=== PATIENT | female | born 1955 | race Caucasian/White ===

== ENCOUNTER 2020-01-19 11:48 | Day surgery (SDC) | payer BC, SELFPAY ==
--- NOTE | 2020-01-18 13:56 | P.CONAN_ITS ---
Documented by User: Pattie Aguilar 01/18/20 13:58 HPI - Anesthesia Eval Consult details Narrative: 64yo F for colonscopy: screening [facility] Past Medical History Medical History Asthma Hyperlipidemia Hypothyroid Surgical History Surgical History Hx of colonoscopy Social History Social History Smoking Status: Light tobacco smoker Use of substances other than those prescribed or required for medical reasons: No Advance Directives: No Meds Allergies Allergy/AdvReac Type Severity Reaction Status Date / Time No Known Allergies Allergy Verified 01/18/20 13:19 Home Medications Medication Instructions Recorded Confirmed Type Claritin 01/18/20 01/18/20 History Lipitor 01/18/20 History Vitamin D3 01/18/20 History aspirin [Aspir-81] 81 mg PO DAILY 01/18/20 01/18/20 History fluticasone propion-salmeterol 1 puff INHALATION BID 01/18/20 01/18/20 History [Wixela Inhub] levothyroxine 1 tab PO QAM 01/18/20 01/18/20 History Exam Exam Date and Time: January 18, 2020 1356 Pertinent Lab Results Pertinent Lab Results: Laboratory Tests 10/26/19 10/26/19 06:37 06:37 WBC 5.9 Hgb 12.9 Hct 38.4 Plt Count 274 Sodium 138 Potassium 4.4 Chloride 103 BUN 20 H Creatinine 1.00 Assessment and Plan Assessment Anesthesia Assessment: Chart Reviewed Documented by User: Kathy Nguyen 01/19/20 12:17 [facility] Past Medical History Medical History Asthma Hyperlipidemia Hypothyroid Surgical History Surgical History Hx of colonoscopy Social History Social History Smoking Status: Light tobacco smoker Use of substances other than those prescribed or required for medical reasons: No Advance Directives: No Meds Allergies Allergy/AdvReac Type Severity Reaction Status Date / Time No Known Allergies Allergy Verified 01/18/20 13:19 Home Medications Medication Instructions Recorded Confirmed Type Claritin 01/18/20 01/18/20 History Lipitor 01/18/20 History Vitamin D3 01/18/20 History aspirin [Aspir-81] 81 mg PO DAILY 01/18/20 01/18/20 History fluticasone propion-salmeterol 1 puff INHALATION BID 01/18/20 01/18/20 History [Wixela Inhub] levothyroxine 1 tab PO QAM 01/18/20 01/18/20 History Exam Airway Mallampati Class: I TM Dist: >3cm Neck ROM: Full Heart: RRR Lungs: CTA BL Assessment and Plan Final Anesthetic Review NPO: Yes ASA Class: II Final Preanesthetic Review: Meds/Allgs Chart Reviewed and Consent Obtained/Reviewed Patient Risk: Intermediate Procedure Risk: Intermediate Anesthetic Plan Anesthetic Plan: GA Disposition: Standard PACU
[2020-01-19 12:12] VITALS: BMI 16.0
[2020-01-19 12:16] VITALS: BP 108/57; PULSE 70; RESP 18; TEMP 36.1; O2SAT 98
--- NOTE | 2020-01-19 13:36 | PM.OP ---
Brief Operative Note Date of procedure: 01/19/20 Post-op diagnosis: other (colon polyps) Procedure: colonosocpy Surgeon: Saúl Kirby Anesthesia: MAC Estimated blood loss (mL): 0 Pathology: other (polyp 60 cm) Condition: stable Disposition: PACU
[2020-01-19 13:38] VITALS: BP 90/55; PULSE 61; RESP 16; TEMP 36.3; O2SAT 100
[2020-01-19 13:53] VITALS: BP 106/61; PULSE 60; RESP 18; O2SAT 98
--- NOTE | 2020-01-19 14:12 | HO.POSTANES ---
Post Anesthesia Evaluation Post Anesthesia Evaluation Vital Signs: Vital Signs Temp Pulse Resp BP Pulse Ox 01/19/20 13:53 97.4 F 60 18 106/61 98 01/19/20 13:38 97.4 F 61 16 90/55 L 100 01/19/20 12:16 96.9 F 70 18 108/57 L 98 Anesthesia: Monitored Mental Status: Awake Pain Control: Satisfactory Nausea/Vomiting: None Hydration: Adequate Anesthesia-Related Issues: No Anes. Related Issues
--- NOTE | 2020-01-19 14:15 | OP_ITS ---
SURGEON: Saúl Kirby MD INDICATIONS: Colon cancer screening. PREOPERATIVE DIAGNOSIS: POSTOPERATIVE DIAGNOSIS: PROCEDURE PERFORMED: Colonoscopy to the terminal ileum with snare polypectomy. ESTIMATED BLOOD LOSS: COMPLICATIONS: ANESTHESIA: ASSISTANTS: SPECIMENS: MEDICATIONS: Monitored anesthesia care. DESCRIPTION OF PROCEDURE: History and physical performed. The risks and benefits of the procedure were explained to the patient. Informed consent was obtained. The patient was placed in the left lateral decubitus position. A digital rectal exam was performed and was found to be normal. The Olympus pediatric video colonoscope was introduced into the rectum and advanced to the cecum without difficulty. The cecum was identified by transillumination, palpation, and identification of the ileocecal valve. Examination was performed and the scope was removed. She tolerated the procedure well and was taken to recovery area in stable condition. FINDINGS: The terminal ileum was normal. The visualized colonic mucosa was within normal limits without evidence of masses or ulcers. The quality of the prep was good. At 60 cm, was a single less than 5 mm polyp, which was removed with a snare and recovered via suction. No other polyps were identified. Retroflexed examination was otherwise normal. IMPRESSION: Colon polyp. RECOMMENDATION: Follow up biopsy results. MD ORALIA Everett/CAMERON / [id number]
== END 2020-01-19 14:18 | disposition home or self-care (01) ==
PROVIDERS: PCP Internal Medicine; Visit Provider Internal Medicine Gastroenterology
PROC: 0DJD8ZZ Inspection of Lower Intestinal Tract, Via Natural or Artificial Opening Endoscopic (ICD-10-PCS; CPT 45378; principal; 2020-01-19 13:00)
DX: Z12.11 Encounter for screening for malignant neoplasm of colon (principal); D12.3 Benign neoplasm of transverse colon; K64.8 Other hemorrhoids; K59.00 Constipation, unspecified; J45.909 Unspecified asthma, uncomplicated; E78.5 Hyperlipidemia, unspecified; E03.9 Hypothyroidism, unspecified; Z79.51 Long term (current) use of inhaled steroids; Z79.82 Long term (current) use of aspirin; Z79.899 Other long term (current) drug therapy
CPT/HCPCS: 45385; 88305

== ENCOUNTER 2020-05-19 10:26 | Outpatient (REF) | payer BC, SELFPAY ==
[2020-05-19 13:01] LABS: Blood Urea Nitrogen 19 mg/dL (9-16); Estimated Glomerular Filt Rate 58
== END 2020-05-19 10:27 | disposition home or self-care (01) ==
LOC: HO.LNP 10:26
PROVIDERS: PCP Internal Medicine; Visit Provider Internal Medicine
DX: R79.9 Abnormal finding of blood chemistry, unspecified (principal)
CPT/HCPCS: 82565; 84520

== ENCOUNTER 2020-10-31 10:44 | Outpatient (REF) | payer BC, SELFPAY ==
[2020-10-31 10:48] LABS: MANUAL DIFF FLAG NO
[2020-10-31 11:20] LABS: Basophils Absolute Auto 0.1 X10*3/uL (0.0-0.2); Basophils Percent Auto 1.2 % (0-2); Eosinophils Absolute Auto 0.4 X10*3/uL (0.0-0.4); Eosinophils Percent Auto 6.3 % (0-4); Hematocrit 38.7 % (37-47); Hemoglobin 12.7 g/dl (12.0-16.0); Imm Gran Abs Auto 0.02 X10*3/uL (0.00-0.03); Imm Gran Pct Auto 0.3 % (0.0-0.4); Lymphocytes Absolute Auto 1.7 X10*3/uL (1.2-4.9); Lymphocytes Percent Auto 27.4 % (20-40); Mean Corpuscular HGB Conc 32.8 g/dl (31.0-35.0); Mean Corpuscular Hemoglobin 31.4 pg (27.0-33.0); Mean Corpuscular Volume 95.6 fL (80-98); Mean Platelet Volume 10.5 fL (9.4-12.3); Monocytes Absolute Auto 0.5 X10*3/uL (0.1-1.2); Monocytes Percent Auto 7.8 % (2-11); Neutrophils Absolute Auto 3.4 X10*3/uL (2.0-8.3); Platelet Count 295 X10*3/uL (160-400); Red Blood Count 4.05 X10*6/uL (4.20-5.50); Red Cell Distribution Width 12.1 % (11.0-16.0)
[2020-10-31 11:33] LABS: Glucose Urine UA NEG (NEG); Leukocyte Esterase Urine TRACE (NEG); Nitrite Urine NEG (NEG); Specific Gravity - Urine 1.015 (1.005-1.025); Urine Blood NEG (NEG); Urine Ketones NEG (NEG); Urine Protein NEG (NEG-TRACE)
[2020-10-31 11:51] LABS: Appearance Urine CLEAR; Color Urine YELLOW
[2020-10-31 12:09] LABS: TSH reflex Free T4 2.62 uIU/mL (0.32-4.0); Vitamin D 25-OH Total 32.6 ng/mL (>30)
[2020-10-31 12:11] LABS: Alanine Aminotransferase 19 U/L (0-31); Albumin Level 4.3 g/dL (3.5-5.0); Alkaline Phosphatase 75 U/L (39-117); Anion Gap 12 (12-20); Aspartate Amino Transferase 25 U/L (5-31); Bilirubin Total 0.5 mg/dL (0.0-1.0); Blood Urea Nitrogen 12 mg/dL (9-16); Calcium 9.9 mg/dL (8.4-10.2); Carbon Dioxide 27 mmol/L (22-29); Chloride 105 mmol/L (96-108); Cholesterol 250 mg/dL; Estimated Glomerular Filt Rate 55; Glucose Fasting 95 mg/dL (60-99); HDL Cholesterol 60 mg/dL; LDL Cholesterol Calculated 178 mg/dl; Potassium 4.1 mmol/L (3.3-5.1); Sodium 140 mmol/L (135-145); Triglycerides 62 mg/dL
[2020-10-31 12:22] LABS: RBC Urine 0 /HPF (0); Squamous Epithelial Cell Urine TRACE /LPF
[2020-10-31 12:41] LABS: Reflex LDLD? No
== END 2020-10-31 10:45 | disposition home or self-care (01) ==
LOC: HO.LNP 10:44
PROVIDERS: Visit Provider Internal Medicine
DX: Z00.00 Encounter for general adult medical examination without abnormal findings (principal); E03.9 Hypothyroidism, unspecified; E78.00 Pure hypercholesterolemia, unspecified; E55.9 Vitamin D deficiency, unspecified
CPT/HCPCS: 80053; 80061; 81001; 81003; 82306; 84443; 85025

== ENCOUNTER 2021-05-10 07:10 | Outpatient (REF) | payer BC, SELFPAY ==
[2021-05-10 11:41] LABS: Alanine Aminotransferase 19 U/L (0-31); Albumin Level 4.2 g/dL (3.5-5.0); Alkaline Phosphatase 78 U/L (39-117); Aspartate Amino Transferase 24 U/L (5-31); Bilirubin Direct 0.2 mg/dL (0.0-0.5); Bilirubin Total 0.6 mg/dL (0.0-1.0); Cholesterol 208 mg/dL; HDL Cholesterol 64 mg/dL; LDL Cholesterol Calculated 132 mg/dl; Total Protein 6.9 g/dL (6.5-8.0); Triglycerides 60 mg/dL
[2021-05-10 13:45] LABS: Reflex LDLD? No
== END 2021-05-10 07:11 | disposition home or self-care (01) ==
LOC: HO.LNP 07:10
PROVIDERS: Visit Provider Internal Medicine
DX: E78.00 Pure hypercholesterolemia, unspecified (principal)
CPT/HCPCS: 80061; 80076

== ENCOUNTER → 2021-08-01 10:58 | Outpatient (REF) | payer MEDICARE, BC, SELFPAY ==
--- NOTE | 2021-08-01 11:04 | HM_ITS ---
REQUESTING PROVIDER: Dr. Jacobsen REASON FOR TEST: Palpitations. Patient is a 66-year-old female. INTERPRETATION: Patient was monitored from 08/01/2021, to 08/31/2021. I was requested to read this study today with 09/03/2021. The patient's baseline rhythm was normal sinus rhythm with heart rate varying from 83 to 65 beats per minute, sinus rhythm to 117 beats per minute. There were rare isolated PACs and PVCs noted. On 08/17/2021, at 7:23 a.m., patient had atrial fibrillation, which appears to be new onset with heart rate of initially 95 beats per minute. The patient then complained of symptoms of fluttering at 7:24 a.m., which correlated atrial fibrillation with rapid ventricular response with heart rate as high as 213 beats per minute. Patient remains in atrial fibrillation until 9:25 a.m. Total time period about 2 hours with heart rate from 95 to 213 beats per minute. The patient then converted to sinus rhythm spontaneously. CONCLUSION: 1. Event monitor has remarkable baseline normal sinus rhythm. 2. Rare isolated PACs, PVCs. 3. Symptomatic atrial fibrillation on 08/17, lasting for 2 hours with heart rate as high as 213 beats per minute. Onelia in the office was informed about this. MD SUDHAKAR Blake/MODL / [id number]
== END ==
LOC: HO.CARD 10:58
PROVIDERS: Visit Provider Internal Medicine
DX: R00.2 Palpitations (principal)
CPT/HCPCS: 93270

== ENCOUNTER 2021-09-06 10:19 | Outpatient (REF) | payer MEDICARE, BC, SELFPAY ==
[2021-09-06 10:21] LABS: MANUAL DIFF FLAG NO
[2021-09-06 10:28] LABS: Basophils Absolute Auto 0.1 X10*3/uL (0.0-0.2); Eosinophils Absolute Auto 0.3 X10*3/uL (0.0-0.4); Hematocrit 38.2 % (37.0-47.0); Hemoglobin 12.5 g/dl (12.0-16.0); Imm Gran Abs Auto 0.02 X10*3/uL (0.00-0.03); Imm Gran Pct Auto 0.3 % (0.0-0.4); Lymphocytes Absolute Auto 1.9 X10*3/uL (1.2-4.9); Lymphocytes Percent Auto 30.3 % (20-40); Mean Corpuscular HGB Conc 32.7 g/dl (31.0-35.0); Mean Corpuscular Hemoglobin 31.5 pg (27.0-33.0); Mean Corpuscular Volume 96.2 fL (80.0-98.0); Mean Platelet Volume 10.5 fL (9.4-12.3); Monocytes Absolute Auto 0.7 X10*3/uL (0.1-1.2); Monocytes Percent Auto 10.7 % (2-11); Neutrophils Absolute Auto 3.3 x10*3/uL (2.0-8.3); Neutrophils Percent Auto 52.7 % (45-73); Platelet Count 275 X10*3/uL (160-400); Red Blood Count 3.97 X10*6/uL (4.20-5.50); Red Cell Distribution Width 12.6 % (11.0-16.0); White Blood Count 6.2 X10*3/uL (4.8-10.8)
[2021-09-06 10:41] LABS: Alanine Aminotransferase 26 U/L (0-31); Albumin Level 4.2 g/dL (3.5-5.0); Alkaline Phosphatase 69 U/L (39-117); Anion Gap 10 (12-20); Aspartate Amino Transferase 30 U/L (5-31); Bilirubin Direct 0.3 mg/dL (0.0-0.5); Bilirubin Total 0.6 mg/dL (0.0-1.0); Blood Urea Nitrogen 22 mg/dL (9-16); Calcium 9.3 mg/dL (8.4-10.2); Carbon Dioxide 29 mmol/L (22-29); Chloride 103 mmol/L (96-108); Cholesterol 149 mg/dL; Estimated Glomerular Filt Rate > 60; Glucose Random 93 mg/dL (60-115); HDL Cholesterol 58 mg/dL; LDL Cholesterol Calculated 81 mg/dl; Potassium 4.3 mmol/L (3.3-5.1); Sodium 138 mmol/L (135-145); Total Protein 6.8 g/dL (6.5-8.0); Triglycerides 53 mg/dL
[2021-09-06 11:44] LABS: Reflex LDLD? No
== END 2021-09-06 10:20 | disposition home or self-care (01) ==
LOC: HO.LNP 10:19
PROVIDERS: PCP Internal Medicine; Visit Provider Internal Medicine
DX: E78.00 Pure hypercholesterolemia, unspecified (principal)
CPT/HCPCS: 80048; 80061; 80076; 85025

== ENCOUNTER 2021-11-02 13:24 | Outpatient (REF) | payer MEDICARE, BC, SELFPAY ==
[2021-11-02 13:30] LABS: MANUAL DIFF FLAG NO
[2021-11-02 13:35] LABS: Basophils Absolute Auto 0.1 X10*3/uL (0.0-0.2); Basophils Percent Auto 1.4 % (0-2); Eosinophils Absolute Auto 0.4 X10*3/uL (0.0-0.4); Eosinophils Percent Auto 6.1 % (0-4); Hematocrit 41.3 % (37.0-47.0); Hemoglobin 13.6 g/dl (12.0-16.0); Imm Gran Abs Auto 0.02 X10*3/uL (0.00-0.03); Imm Gran Pct Auto 0.3 % (0.0-0.4); Lymphocytes Absolute Auto 2.6 X10*3/uL (1.2-4.9); Lymphocytes Percent Auto 35.5 % (20-40); Mean Corpuscular HGB Conc 32.9 g/dl (31.0-35.0); Mean Corpuscular Hemoglobin 31.4 pg (27.0-33.0); Mean Corpuscular Volume 95.4 fL (80.0-98.0); Mean Platelet Volume 10.5 fL (9.4-12.3); Monocytes Absolute Auto 0.6 X10*3/uL (0.1-1.2); Monocytes Percent Auto 8.6 % (2-11); Neutrophils Absolute Auto 3.5 x10*3/uL (2.0-8.3); Neutrophils Percent Auto 48.1 % (45-73); Platelet Count 281 X10*3/uL (160-400); Red Blood Count 4.33 X10*6/uL (4.20-5.50); Red Cell Distribution Width 12.5 % (11.0-16.0); White Blood Count 7.2 X10*3/uL (4.8-10.8)
[2021-11-02 13:36] LABS: Appearance Urine CLEAR; Color Urine YELLOW; Glucose Urine UA NEG (NEG); Leukocyte Esterase Urine TRACE (NEG); Nitrite Urine NEG (NEG); PH 6.5 (5.0-8.0); Urine Blood NEG (NEG); Urine Ketones NEG (NEG); Urine Protein NEG (NEG-TRACE)
[2021-11-02 13:43] LABS: RBC Urine 0 /HPF (0); Squamous Epithelial Cell Urine TRACE /LPF
[2021-11-02 13:49] LABS: Alanine Aminotransferase 23 U/L (0-31); Albumin Level 4.4 g/dL (3.5-5.0); Alkaline Phosphatase 74 U/L (39-117); Anion Gap 14 (12-20); Aspartate Amino Transferase 29 U/L (5-31); Bilirubin Total 0.6 mg/dL (0.0-1.0); Blood Urea Nitrogen 19 mg/dL (9-16); Calcium 9.3 mg/dL (8.4-10.2); Carbon Dioxide 28 mmol/L (22-29); Chloride 103 mmol/L (96-108); Cholesterol 189 mg/dL; Estimated Glomerular Filt Rate 49; Glucose Random 84 mg/dL (60-115); HDL Cholesterol 63 mg/dL; LDL Cholesterol Calculated 111 mg/dl; Potassium 4.9 mmol/L (3.3-5.1); Sodium 140 mmol/L (135-145); Triglycerides 78 mg/dL
[2021-11-02 14:09] LABS: TSH reflex Free T4 1.34 uIU/mL (0.32-4.0); Vitamin D 25-OH Total 60.3 ng/mL (>30)
== END 2021-11-02 13:25 | disposition home or self-care (01) ==
LOC: HO.LNP 13:24
PROVIDERS: Visit Provider Internal Medicine
DX: E03.9 Hypothyroidism, unspecified (principal); E55.9 Vitamin D deficiency, unspecified; E78.00 Pure hypercholesterolemia, unspecified
CPT/HCPCS: 80053; 80061; 81001; 82306; 84443; 85025

== ENCOUNTER → 2022-02-13 11:14 | Outpatient (BNVA) | payer MEDICARE, BC, SELFPAY | PROVIDERS: PCP Internal Medicine; Referring Provider Internal Medicine; Visit Provider Internal Medicine Cardiovascular Disease | DX: I48.0 Paroxysmal atrial fibrillation (principal); I34.0 Nonrheumatic mitral (valve) insufficiency; Z79.01 Long term (current) use of anticoagulants | CPT/HCPCS: 93005; 99202 ==

== ENCOUNTER 2022-03-01 09:10 | Outpatient (REF) | payer MEDICARE, BC, SELFPAY ==
--- NOTE | ~2022-03-01 | XR_ITS ---
EXAMINATION: XR CHEST CLINICAL INFORMATION: Bronchitis COMPARISON: Chest radiographs 04/01/2006 TECHNIQUE: 2 views of the chest were obtained. FINDINGS: There is chronic hyperinflation. No lobar or segmental airspace consolidation or definite groundglass opacity. There are some accentuated interstitial markings right midlung zone. No pleural reaction or effusion. Heart size normal. Vascularity normal. No acute bony abnormality. XR/XR chest 2V IMPRESSION: 1. Chronic hyperinflation. No airspace consolidation, groundglass opacity, or effusion. 2. Subtle nonspecific accentuated interstitial markings right mid zone is new from remote exam 2006.
[2022-03-01 10:17] LABS: Basophils Percent Auto 0.2 % (0-2); Hematocrit 37.5 % (37.0-47.0); Hemoglobin 12.7 g/dl (12.0-16.0); Imm Gran Pct Auto 1.1 % (0.0-0.4); Lymphocytes Absolute Auto 1.1 X10*3/uL (1.2-4.9); Lymphocytes Percent Auto 6.1 % (20-40); MANUAL DIFF FLAG SCAN; Mean Corpuscular HGB Conc 33.9 g/dl (31.0-35.0); Mean Corpuscular Hemoglobin 31.4 pg (27.0-33.0); Mean Corpuscular Volume 92.8 fL (80.0-98.0); Mean Platelet Volume 9.4 fL (9.4-12.3); Monocytes Absolute Auto 0.3 X10*3/uL (0.1-1.2); Monocytes Percent Auto 1.5 % (2-11); Neutrophils Absolute Auto 16.1 x10*3/uL (2.0-8.3); Neutrophils Percent Auto 91.1 % (45-73); Platelet Count 496 X10*3/uL (160-400); Red Blood Count 4.04 X10*6/uL (4.20-5.50); Red Cell Distribution Width 12.9 % (11.0-16.0); SCAN SMEAR FLAG 1; White Blood Count 17.7 X10*3/uL (4.8-10.8)
[2022-03-01 11:11] LABS: Alanine Aminotransferase 43 U/L (0-31); Albumin Level 4.1 g/dL (3.5-5.0); Alkaline Phosphatase 150 U/L (39-117); Anion Gap 16 (12-20); Aspartate Amino Transferase 38 U/L (5-31); Bilirubin Total 0.4 mg/dL (0.0-1.0); Blood Urea Nitrogen 20 mg/dL (9-16); Calcium 9.4 mg/dL (8.4-10.2); Carbon Dioxide 27 mmol/L (22-29); Chloride 99 mmol/L (96-108); Estimated Glomerular Filt Rate > 60; Glucose Random 184 mg/dL (60-115); Potassium 3.9 mmol/L (3.3-5.1); Sodium 138 mmol/L (135-145); Total Protein 7.3 g/dL (6.5-8.0)
[2022-03-01 11:12] LABS: SLIDE REVIEW VERIFIED
[2022-03-01 14:37] LABS: Influenza A PCR NEGATIVE (Negative); Influenza B PCR NEGATIVE (Negative); Resp Syncy Virus RNA Qual PCR NEGATIVE (Negative); SARS COV2 PCR INHOUSE NEGATIVE (Negative)
== END 2022-03-01 09:11 | disposition home or self-care (01) ==
LOC: HO.LAB 09:10
PROVIDERS: PCP Internal Medicine; Visit Provider Internal Medicine
DX: J40 Bronchitis, not specified as acute or chronic (principal); J45.41 Moderate persistent asthma with (acute) exacerbation; Z20.822 Contact with and (suspected) exposure to COVID-19
CPT/HCPCS: 0241U; 36415; 71046; 80053; 85025

== ENCOUNTER 2022-05-17 16:00 | Outpatient (REF) | payer MEDICARE, BC, SELFPAY ==
[2022-05-17 16:07] LABS: MANUAL DIFF FLAG NO
[2022-05-17 16:18] LABS: Basophils Absolute Auto 0.1 X10*3/uL (0.0-0.2); Basophils Percent Auto 0.9 % (0-2); Eosinophils Absolute Auto 0.2 X10*3/uL (0.0-0.4); Eosinophils Percent Auto 2.8 % (0-4); Hematocrit 38.8 % (37.0-47.0); Imm Gran Abs Auto 0.02 X10*3/uL (0.00-0.03); Imm Gran Pct Auto 0.3 % (0.0-0.4); Lymphocytes Absolute Auto 2.3 X10*3/uL (1.2-4.9); Lymphocytes Percent Auto 28.9 % (20-40); Mean Corpuscular HGB Conc 33.5 g/dl (31.0-35.0); Mean Corpuscular Hemoglobin 31.8 pg (27.0-33.0); Mean Corpuscular Volume 94.9 fL (80.0-98.0); Mean Platelet Volume 9.9 fL (9.4-12.3); Monocytes Absolute Auto 0.6 X10*3/uL (0.1-1.2); Monocytes Percent Auto 7.2 % (2-11); Neutrophils Absolute Auto 4.8 x10*3/uL (2.0-8.3); Neutrophils Percent Auto 59.9 % (45-73); Platelet Count 283 X10*3/uL (160-400); Red Blood Count 4.09 X10*6/uL (4.20-5.50); Red Cell Distribution Width 12.8 % (11.0-16.0)
[2022-05-17 16:53] LABS: Alanine Aminotransferase 27 U/L (0-31); Albumin Level 4.2 g/dL (3.5-5.0); Alkaline Phosphatase 84 U/L (39-117); Anion Gap 12 (12-20); Aspartate Amino Transferase 29 U/L (5-31); Bilirubin Total 0.6 mg/dL (0.0-1.0); Blood Urea Nitrogen 17 mg/dL (9-16); Calcium 9.2 mg/dL (8.4-10.2); Carbon Dioxide 29 mmol/L (22-29); Chloride 102 mmol/L (96-108); Estimated Glomerular Filt Rate > 60; Glucose Fasting 102 mg/dL (60-99); Sodium 139 mmol/L (135-145); Total Protein 6.6 g/dL (6.5-8.0)
[2022-05-17 17:05] LABS: Erythrocyte Sedimentation Rate 13 MM/HR (0-20)
[2022-05-17 17:07] LABS: TSH reflex Free T4 0.63 uIU/mL (0.32-4.0)
== END 2022-05-17 16:01 | disposition home or self-care (01) ==
LOC: HO.LNP 16:00
PROVIDERS: Visit Provider Internal Medicine
DX: R53.83 Other fatigue (principal); E03.9 Hypothyroidism, unspecified
CPT/HCPCS: 80053; 84443; 85025; 85652

== ENCOUNTER → 2022-08-15 14:03 | Outpatient (BNVA) | payer MEDICARE, BC, SELFPAY | PROVIDERS: PCP Internal Medicine; Referring Provider Internal Medicine; Visit Provider Internal Medicine Cardiovascular Disease | DX: I48.0 Paroxysmal atrial fibrillation (principal); I34.0 Nonrheumatic mitral (valve) insufficiency | CPT/HCPCS: 93005; 99212 ==

== ENCOUNTER 2022-10-07 13:33 | Outpatient (REF) | payer MEDICARE, BC, SELFPAY ==
[2022-10-09 16:38] LABS: Alpha 1 Anti-trypsin 136 mg/dL (83-199)
== END 2022-10-07 13:34 | disposition home or self-care (01) ==
LOC: HO.LNP 13:33
PROVIDERS: Visit Provider Internal Medicine
DX: J40 Bronchitis, not specified as acute or chronic (principal)
CPT/HCPCS: 82103

== ENCOUNTER 2022-11-05 11:23 | Outpatient (REF) | payer MEDICARE, BC, SELFPAY ==
[2022-11-05 11:28] LABS: MANUAL DIFF FLAG NO
[2022-11-05 12:20] LABS: Basophils Absolute Auto 0.1 X10*3/uL (0.0-0.2); Basophils Percent Auto 1.2 % (0-2); Eosinophils Absolute Auto 0.4 X10*3/uL (0.0-0.4); Eosinophils Percent Auto 5.1 % (0-4); Hematocrit 38.9 % (37.0-47.0); Hemoglobin 12.8 g/dl (12.0-16.0); Imm Gran Abs Auto 0.02 X10*3/uL (0.00-0.03); Imm Gran Pct Auto 0.3 % (0.0-0.4); Lymphocytes Absolute Auto 2.2 X10*3/uL (1.2-4.9); Lymphocytes Percent Auto 31.5 % (20-40); Mean Corpuscular HGB Conc 32.9 g/dl (31.0-35.0); Mean Corpuscular Hemoglobin 31.5 pg (27.0-33.0); Mean Corpuscular Volume 95.8 fL (80.0-98.0); Mean Platelet Volume 10.3 fL (9.4-12.3); Monocytes Absolute Auto 0.7 X10*3/uL (0.1-1.2); Monocytes Percent Auto 9.6 % (2-11); Neutrophils Absolute Auto 3.6 x10*3/uL (2.0-8.3); Neutrophils Percent Auto 52.3 % (45-73); Platelet Count 284 X10*3/uL (160-400); Red Blood Count 4.06 X10*6/uL (4.20-5.50); Red Cell Distribution Width 12.6 % (11.0-16.0); White Blood Count 6.9 X10*3/uL (4.8-10.8)
[2022-11-05 12:22] LABS: Appearance Urine Clear; Color Urine Yellow; Glucose Urine UA Negative (Negative); Leukocyte Esterase Urine Trace (Negative); Nitrite Urine Negative (Negative); PH 5.5 (5.0-9.0); Specific Gravity - Urine 1.015 (1.005-1.025); UMIC TRIGGER UACC YES; Urine Blood Negative (Negative); Urine Ketones Negative (Negative); Urine Protein Negative (Neg-Trace)
[2022-11-05 12:25] LABS: Bacteria Urine None Seen (None Seen); Hyaline Casts Urine 0-2 /LPF (0-2); RBC Urine 0-2 /HPF (0-2); Squamous Epithelial Cell Urine 0-2 /HPF (0-2); WBC Urine 0-5 /HPF (0-5)
[2022-11-05 12:34] LABS: Alanine Aminotransferase 27 U/L (0-31); Albumin Level 4.2 g/dL (3.5-5.0); Alkaline Phosphatase 75 U/L (39-117); Anion Gap 11 (12-20); Aspartate Amino Transferase 33 U/L (5-31); Bilirubin Total 0.5 mg/dL (0.0-1.0); Blood Urea Nitrogen 15 mg/dL (9-16); Calcium 9.3 mg/dL (8.4-10.2); Carbon Dioxide 29 mmol/L (22-29); Chloride 105 mmol/L (96-108); Cholesterol 168 mg/dL; Estimated Glomerular Filt Rate 54; Glucose Fasting 92 mg/dL (60-99); HDL Cholesterol 59 mg/dL; LDL Cholesterol Calculated 99 mg/dl; Potassium 4.3 mmol/L (3.3-5.1); Sodium 141 mmol/L (135-145); Triglycerides 52 mg/dL
[2022-11-05 12:45] LABS: TSH reflex Free T4 2.21 uIU/mL (0.32-4.0); Vitamin D 25-OH Total 51.9 ng/mL (>30)
== END 2022-11-05 11:24 | disposition home or self-care (01) ==
LOC: HO.LNP 11:23
PROVIDERS: Visit Provider Internal Medicine
DX: E03.9 Hypothyroidism, unspecified (principal); E55.9 Vitamin D deficiency, unspecified; E78.00 Pure hypercholesterolemia, unspecified
CPT/HCPCS: 80053; 80061; 81001; 82306; 84443; 85025

== ENCOUNTER 2023-05-09 07:59 | Outpatient (REF) | payer MEDICARE, BC, SELFPAY ==
[2023-05-09 09:17] LABS: Alanine Aminotransferase 15 U/L (0-31); Albumin Level 4.3 g/dL (3.5-5.0); Alkaline Phosphatase 81 U/L (39-117); Aspartate Amino Transferase 21 U/L (5-31); Bilirubin Direct 0.2 mg/dL (0.0-0.5); Bilirubin Total 0.6 mg/dL (0.0-1.0); Cholesterol 196 mg/dL (<200); HDL Cholesterol 63 mg/dL (>40); LDL Cholesterol Calculated 118 mg/dL (<100); Total Protein 7.2 g/dL (6.5-8.0); Triglycerides 77 mg/dL (<150)
[2023-05-09 09:26] LABS: Reflex LDLD? No
== END 2023-05-09 08:00 | disposition home or self-care (01) ==
LOC: HO.LAB 07:59
PROVIDERS: PCP Internal Medicine; Visit Provider Internal Medicine
DX: E78.5 Hyperlipidemia, unspecified (principal)
CPT/HCPCS: 36415; 80061; 80076

== ENCOUNTER → 2023-05-28 15:33 | Outpatient (BNVA) | payer MEDICARE, BC, SELFPAY | PROVIDERS: PCP Internal Medicine; Visit Provider Internal Medicine Cardiovascular Disease ==

== ENCOUNTER → 2023-07-28 07:54 | Outpatient (REF) | payer MEDICARE, BC, SELFPAY ==
--- NOTE | 2023-07-28 07:56 | CA_ITS ---
Transthoracic Echocardiogram Patient (Last, First, Middle): Radha Bay A Gender: Female Date of : 1955 Age: 68 Procedure Date: 07/28/2023 Procedure Type: Transthoracic Echocardiogram Location: OP Height: 162.56 cm Weight: 39.46 kg BSA: 1.37 m2 Heart Rate: bpm BP: 104 / 60 mmHg Remedial Reading Teacher: MARKOS Referring MD: Tacho Valdes MD Symptoms: I34.0 - Nonrheumatic mitral (valve) insufficiency Study Quality: Adequate ECG Rhythm: Sinus Conclusions: - The left ventricular systolic function is normal. The calculated ejection fraction is 66% by biplane method. - There is mild posterior mitral leaflet prolapse. There is mild mitral valve regurgitation. - Mild tricuspid leaflet prolapse- septal leaflet. - There is mild to moderate tricuspid valve regurgitation. - Mild pulmonary hypertension is present. Findings Procedure Information The study quality is limited by patients body habitus. Left Ventricle Normal left ventricular cavity size. There is normal left ventricular wall thickness. The left ventricular systolic function is normal. The calculated ejection fraction is 66% by biplane method. There is no evidence of regional wall motion abnormalities. Evidence suggests grade I (mild) diastolic dysfunction. Right Ventricle Normal right ventricular cavity size and systolic function. Atria Both atria are normal in size. Aortic Valve There is a normal trileaflet aortic valve. There is no aortic valve stenosis. There is no aortic valve regurgitation. Mitral Valve There is mild posterior mitral leaflet prolapse. There is mild mitral valve regurgitation. There is no mitral valve stenosis. Pulmonic Valve The pulmonic valve is likely normal. Tricuspid Valve There is mild to moderate tricuspid valve regurgitation. Mild pulmonary hypertension is present. Mild tricuspid leaflet prolapse- septal leaflet. Great Vessels The asc aorta is normal in size. Venous The inferior vena cava is mildly dilated and collapses greater than 50% with inspiration. Pericardium/Pleural There is no evidence of pericardial effusion. Prior Study Comparison No prior study available for comparison. Measurements 2D Linear Measurements IVSd: 0.73 0.6-0.9/0.6-1.0 cm LVIDd: 3.48 3.9-5.3/4.2-5.9 cm LVIDd Index: 2.54 2.4-3.2/2.2-3.1 cm/m2 LVIDs: 2.41 2.0-3.6 cm LVPWd: 1.02 0.7-1.1 cm LA Diam: 2.70 2.7-3.8/3.0-4.0 cm LAIDs Index: 1.97 1.5-2.3 cm/m2 LV Mass: 104.52 67-162/88-224 g LV Mass Index: 76.29 43-95/49-115 g/m2 LVOT Diam: 2.00 3.0+(-)1.3 cm 2D Systolic Function EF 4C: 68.50 >55% EF 2C: 64.00 >55% EF BiP: 66.40 >55% Mitral Valve MV Pk E: 0.87 MV PK A: 0.92 MV Decel Time: 237.00 E/A: 0.90 E'Lateral: 8.70 E'Medial: 6.31 E/E' Med: 13.70 E/E' Lat: 9.90 PHT: 69.00 MVA PHT: 3.19 Decel Runnels: 3.65 MR Vol - PW Dopp: 11.13 MR VTI: 1.59 MR ERO: 7.00 MR Alias Roman: 0.39 MR RAD: 0.40 Aortic Valve AoV Pk Roman: 1.19 AoV Mn Roman: 0.82 AoV VTI: 0.28 AoV Pk Grad: 6.00 Aov Mn Grad: 3.00 BERNADETTE Cont.VTI: 2.12 LVOT LVOT Pk Roman: 0.74 LVOT Mn Roman: 0.51 LVOT VTI: 0.19 LVOT Pk Grad: 2.00 LVOT Mn Grad: 1.00 LVOT Diam: 2.00 LVOT Area: 3.14 Diastolic Function MV Pk E: 0.87 MV Pk A: 0.92 E/A: 0.90 E'Medial: 6.31 E/E' Med: 13.70 E' Laterial: 8.70 E/E' Lat: 9.90 Right Ventricle TAPSE (mm): 22.30 TVS' Roman: 12.00 Tricuspid Valve TR Pk Roman: 2.93 TR Pk Grad: 34.00 RA Press: 8.00 RVSP: 42.00 Great Vessels Aorta Sinus of Valsalva: 3.20 2.0-3.[address] Ridge: 2.37 1.7-3.4 cm Ao Asc: 2.80 2.1-3.4 cm Updated in Other Vendor System with Status of Final Samir Alvarenga MD electronically signed on 07/28/2023 9:40:04 AM with status of Final
== END ==
LOC: HO.CARD 07:54
PROVIDERS: PCP Internal Medicine; Visit Provider Internal Medicine Cardiovascular Disease
DX: I34.0 Nonrheumatic mitral (valve) insufficiency (principal)
CPT/HCPCS: 93306

== ENCOUNTER → 2023-07-28 07:56 | Outpatient (BNV) | payer MEDICARE, BC, SELFPAY | PROVIDERS: PCP Internal Medicine; Visit Provider Internal Medicine | DX: I34.0 Nonrheumatic mitral (valve) insufficiency (principal); I34.1 Nonrheumatic mitral (valve) prolapse; I36.1 Nonrheumatic tricuspid (valve) insufficiency | CPT/HCPCS: 93306 ==

== ENCOUNTER 2023-08-14 11:07 | Outpatient (AMB) | payer MEDICARE, BC, SELFPAY ==
[2023-08-14 11:13] VITALS: BP 110/70; PULSE 59; BMI 15.1
--- NOTE | 2023-08-14 11:13 | MHC.OFFVIS ---
Vital Signs 08/14/23 11:13 Height 5 ft 4 in Weight 88 lb 2.958 oz BMI 15.1 BP 110/70 Blood Pressure Location Lt brachial Position Sitting Pulse 59 Intake Visit Reasons: 1 yr f/up w/ ekg Intake Note: 1 year follow-up with ekg feeling good Linderman Operator Required: No Allergies No Known Allergies Allergy (Verified 02/13/22 11:21) Medication List - Last Reconciled 08/14/23 by Tacho Valdes MD albuterol sulfate 90 mcg/actuation 0 mcg inhalation apixaban (Eliquis) 5 mg PO BID cholecalciferol (vitamin D3) 50 mcg PO DAILY flecainide 50 mg PO BID fluticasone propion-salmeterol 250-50 mcg/dose (Wixela Inhub) 1 puff inhalation BID levothyroxine 50 mcg PO QAM metoprolol succinate ER 25 mg PO DAILY rosuvastatin 10 mg PO DAILY HPI Comments Details: Radha comes for follow-up. She has been doing well overall from cardiac perspective. Maintains active lifestyle. Has had no recurrent episodes of atrial fibrillation. Denies any skipped heartbeats. No prolonged palpitation irregular heartbeat. Tolerating her medications including flecainide as well as metoprolol therapy. Also tolerating her oral anticoagulation with no bleeding issues or neurologic events. Denies any shortness of breath, orthopnea, PND. Echocardiogram shows mild prolapse of the posterior mitral leaflet with mild mitral regurgitation and [id number] tricuspid regurgitation. LV systolic function is within normal limits. [facility] Medical History Mitral regurgitation Paroxysmal atrial fibrillation Asthma Hyperlipidemia Hypothyroid Surgical History Hx of colonoscopy Family History Mother HTN (hypertension) Cervical cancer Hyperthyroidism Father Heart attack Brother History of quadruple bypass Sister Hyperthyroidism Acute rheumatoid arthritis Sister Hypothyroid Hypercholesteremia Social History Alcohol intake: never Patient Tobacco Use Status: Never used Tobacco Review of Systems Const Denies chills, Denies fatigue, Denies fever(s), Denies frequent falls, Denies weakness, Denies weight gain and Denies weight loss ENT Denies dizziness Card Denies chest pain, Denies leg edema, Denies lightheadedness, Denies palpitations, Denies dyspnea, Denies dyspnea on exertion, Denies orthopnea and Denies other (loss of consciousness) Resp Denies cough, Denies dyspnea and Denies dyspnea on exertion GI Denies hematochezia and Denies change in stool character Musc Denies abnormal gait, Denies muscle weakness, Denies numbness, Denies radiating pain into limb and Denies tingling Neuro Denies Abnormal speech present, Denies abnormal gait, Denies dizziness, Denies frequent falls, Denies numbness, Denies tingling and Denies weakness Endo Denies fatigue and Denies palpitations Physical Exam Vital Signs: Last Vital Signs Pulse 59 08/14/23 11:13 BP 110/70 08/14/23 11:13 BMI result Body Mass Index 15.1 Const General: cooperative, comfortable, no acute distress, alert, awake, Physically active and well groomed Nutritional Appearance: thin Orientation/consciousness: patient oriented x3 Limitations: no limitations HEENT Head: Yes normocephalic and Yes atraumatic Neck Neck: Yes trachea midline, Yes supple and Yes no JVD Resp Effort & Inspection: normal respiratory effort Auscultation: clear to auscultation bilaterally Cardio Jugular venous distension: no JVD Palpation: normal PMI Rate: regular rate Rhythm: regular rhythm Heart sounds: S1 normal heart sound present, S2 normal heart sound present, no click, no gallops, no murmurs and no rubs GI Auscultation: normal bowel sounds Skin General skin exam: no rashes or lesions noted Neuro General: patient oriented x3 and no focal motor deficits Speech: No Abnormal speech present Extrem General: Yes no clubbing, cyanosis or edema Psych Appearance: grossly normal Office Procedures EKG Details: EKG shows sinus bradycardia 59 beats per minute otherwise normal EKG [id number], Complete Assessment & Plan Assessment & Plan (1) Paroxysmal atrial fibrillation: Code(s): I48.0 - Paroxysmal atrial fibrillation Category: Medical Plan: Highly symptomatic paroxysmal atrial fibrillation currently suppressed on low-dose flecainide therapy along with metoprolol therapy which is required. Continue the same. Management of atrial fibrillation was discussed. She is derived significant benefit from rhythm control approach will continue pursue rhythm control approach. Continue full oral anticoagulation, currently on Eliquis 5 mg b.i.d.. Semi annual renal function test should be pursued. Avoidance of stimulants was discussed. Advised to call me with any new symptoms. Follow-up EKG in 6 months. (2) Mitral regurgitation: Code(s): I34.0 - Nonrheumatic mitral (valve) insufficiency Category: Medical Plan: Mitral valve prolapse with mild mitral regurgitation [id number] tricuspid regurgitation. She has no symptoms related to it. Will continue monitor clinically and by echocardiogram annually. Currently on full oral anticoagulation with Eliquis. Continue metoprolol therapy. Symptoms associated with significant mitral regurgitation was discussed. Will follow up in the clinic in 6 months for EKG in 1 year with me. Thank you for allowing me to partake in the care Coding Level of Care Code Est Pt Level 4 (95216) Diagnoses Paroxysmal atrial fibrillation I48.0 Mitral regurgitation I34.0 CPT Codes EKG - CPT: 91322-Eqojyuagtetuppnlw, Complete ([id number])
== END 2023-08-14 11:58 | disposition home or self-care (01) ==
PROVIDERS: PCP Internal Medicine; Visit Provider Internal Medicine Cardiovascular Disease
DX: I48.0 Paroxysmal atrial fibrillation (principal); I34.0 Nonrheumatic mitral (valve) insufficiency
CPT/HCPCS: 93010; 99214

== ENCOUNTER → 2023-08-14 11:07 | Outpatient (BNVA) | payer MEDICARE, BC, SELFPAY | PROVIDERS: Visit Provider Internal Medicine Cardiovascular Disease | DX: I48.0 Paroxysmal atrial fibrillation (principal); I34.0 Nonrheumatic mitral (valve) insufficiency | CPT/HCPCS: 93005; 99212 ==

== ENCOUNTER 2023-11-06 11:11 | Outpatient (REF) | payer MEDICARE, BC, SELFPAY ==
[2023-11-06 11:14] LABS: MANUAL DIFF FLAG NO
[2023-11-06 11:27] LABS: Basophils Absolute Auto 0.1 X10*3/uL (0.0-0.2); Basophils Percent Auto 1.2 % (0-2); Eosinophils Absolute Auto 0.5 X10*3/uL (0.0-0.4); Eosinophils Percent Auto 6.1 % (0-4); Hematocrit 41.1 % (37.0-47.0); Hemoglobin 13.9 g/dl (12.0-16.0); Imm Gran Abs Auto 0.02 X10*3/uL (0.00-0.03); Imm Gran Pct Auto 0.3 % (0.0-0.4); Lymphocytes Absolute Auto 3.3 X10*3/uL (1.2-4.9); Lymphocytes Percent Auto 42.7 % (20-40); Mean Corpuscular HGB Conc 33.8 g/dl (31.0-35.0); Mean Corpuscular Volume 94.5 fL (80.0-98.0); Mean Platelet Volume 10.5 fL (9.4-12.3); Monocytes Absolute Auto 0.6 X10*3/uL (0.1-1.2); Monocytes Percent Auto 7.9 % (2-11); Neutrophils Absolute Auto 3.2 x10*3/uL (2.0-8.3); Neutrophils Percent Auto 41.8 % (45-73); Platelet Count 313 X10*3/uL (160-400); Red Blood Count 4.35 X10*6/uL (4.20-5.50); Red Cell Distribution Width 12.5 % (11.0-16.0); White Blood Count 7.7 X10*3/uL (4.8-10.8)
[2023-11-06 11:40] LABS: Appearance Urine Clear; Color Urine Yellow; Glucose Urine UA Negative (Negative); Leukocyte Esterase Urine Trace (Negative); Nitrite Urine Negative (Negative); UMIC TRIGGER UACC YES; Urine Blood Negative (Negative); Urine Ketones Negative (Negative); Urine Protein Negative (Neg-Trace)
[2023-11-06 11:48] LABS: Bacteria Urine None Seen (None Seen); Hyaline Casts Urine 0-2 /LPF (0-2); RBC Urine 0-2 /HPF (0-2); Squamous Epithelial Cell Urine 0-2 /HPF (0-2); WBC Urine 0-5 /HPF (0-5)
[2023-11-06 11:53] LABS: Alanine Aminotransferase 20 U/L (0-31); Albumin Level 4.1 g/dL (3.5-5.0); Alkaline Phosphatase 84 U/L (39-117); Anion Gap 11 (12-20); Aspartate Amino Transferase 29 U/L (5-31); Bilirubin Total 0.6 mg/dL (0.0-1.0); Blood Urea Nitrogen 14 mg/dL (9-16); Calcium 9.2 mg/dL (8.4-10.2); Carbon Dioxide 28 mmol/L (22-29); Chloride 105 mmol/L (96-108); Cholesterol 190 mg/dL (<200); Estimated Glomerular Filt Rate 56; Glucose Fasting 92 mg/dL (60-99); HDL Cholesterol 59 mg/dL (>40); LDL Cholesterol Calculated 113 mg/dL (<100); Sodium 140 mmol/L (135-145); Total Protein 7.2 g/dL (6.5-8.0); Triglycerides 94 mg/dL (<150)
[2023-11-06 12:10] LABS: TSH reflex Free T4 4.34 uIU/mL (0.32-4.0); Vitamin D 25-OH Total 60.2 ng/mL (>30)
[2023-11-06 12:51] LABS: Free T4 (Free Thyroxine) 1.19 ng/dL (0.71-1.85)
== END 2023-11-06 11:12 | disposition home or self-care (01) ==
LOC: HO.LNP 11:11
PROVIDERS: Visit Provider Internal Medicine
DX: E03.9 Hypothyroidism, unspecified (principal); E55.9 Vitamin D deficiency, unspecified; E78.00 Pure hypercholesterolemia, unspecified
CPT/HCPCS: 80053; 80061; 81001; 82306; 84439; 84443; 85025

== ENCOUNTER 2024-01-13 12:19 | Outpatient (REF) | payer MEDICARE, BC, SELFPAY ==
[2024-01-13 12:21] LABS: MANUAL DIFF FLAG NO
[2024-01-13 12:39] LABS: Basophils Absolute Auto 0.1 X10*3/uL (0.0-0.2); Basophils Percent Auto 1.3 % (0-2); Eosinophils Absolute Auto 0.4 X10*3/uL (0.0-0.4); Eosinophils Percent Auto 5.5 % (0-4); Hematocrit 38.3 % (37.0-47.0); Hemoglobin 13.1 g/dl (12.0-16.0); Imm Gran Abs Auto 0.01 X10*3/uL (0.00-0.03); Imm Gran Pct Auto 0.2 % (0.0-0.4); Lymphocytes Absolute Auto 2.4 X10*3/uL (1.2-4.9); Lymphocytes Percent Auto 38.1 % (20-40); Mean Corpuscular HGB Conc 34.2 g/dl (31.0-35.0); Mean Corpuscular Hemoglobin 33.2 pg (27.0-33.0); Mean Corpuscular Volume 97.2 fL (80.0-98.0); Mean Platelet Volume 10.5 fL (9.4-12.3); Monocytes Absolute Auto 0.5 X10*3/uL (0.1-1.2); Monocytes Percent Auto 8.3 % (2-11); Neutrophils Percent Auto 46.6 % (45-73); Platelet Count 308 X10*3/uL (160-400); Red Blood Count 3.94 X10*6/uL (4.20-5.50); Red Cell Distribution Width 12.6 % (11.0-16.0); White Blood Count 6.4 X10*3/uL (4.8-10.8)
== END 2024-01-13 12:20 | disposition home or self-care (01) ==
LOC: HO.LNP 12:19
PROVIDERS: Visit Provider Internal Medicine
DX: D72.820 Lymphocytosis (symptomatic) (principal)
CPT/HCPCS: 85025

== ENCOUNTER → 2024-02-05 09:46 | Outpatient (BNVA) | payer MEDICARE, BC, SELFPAY | PROVIDERS: PCP Internal Medicine; Visit Provider Internal Medicine Cardiovascular Disease ==

== ENCOUNTER 2024-05-13 11:10 | Outpatient (REF) | payer MEDICARE, BC, SELFPAY ==
[2024-05-13 12:23] LABS: Cholesterol 184 mg/dL (<200); HDL Cholesterol 59 mg/dL (>40); LDL Cholesterol Calculated 110 mg/dL (<100); Triglycerides 75 mg/dL (<150)
[2024-05-13 12:24] LABS: Reflex LDLD? No
--- OUTSIDE RECORDS SUMMARY | 2024-05-13 12:33 | XMS_ITS ---
Author Organization Cristo Jacobsen MD Address [address] [place] [phone] Care Team Providers Care Upper Inspector Name Role Phone Cristo Jacobsen Primary Care Provider Results Component Value Reference Range Notes Lipid Panel with Reflex (Not yet reviewed by provider) Interpretation: Performing Lab:[facility], [address] [place] [phone] Notes/Report: Triglycerides 75 <150 mg/dL Desirable Triglyceride: [...] Date Provider Diagnosis Cristo Jacobsen MD [address] [place] [phone] 05/13/2024 Cristo Jacobsen Hypercholesterolemia E78.00 Assessments Encounter Date Diagnosis (ICD Code) Assessment Notes Treatment Notes Treatment Clinical Notes Section Notes 05/13/2024 Hypercholesterolemia (ICD-10 - E78.00) Plan Of Treatment Pending Test Test Name Order Date Liver Panel 05/13/2024 Lipid Panel with Reflex 05/13/2024 Next Appt Details Provider Name:Cristo Diaz ier, 05/21/2024 10:00:00 AM, [address], [address], [place], [place], [phone], Provider Name:Cristo Diaz ier, 11/05/2024 07:30:00 AM, [address], [address], [place], [place], [phone], Provider Name:Cristo Diaz ier, 11/12/2024 09:30:00 AM, [address] [facility], Suite [facility], [place], [place], [phone], Progress Notes * Radha WARD ADOB: (68 yo F)Acc No.[id number]:05/13/2024 Progress Note Patient:?SYLVIARadha FARIAS A Provider:?Cristo Jacobsen MD :1955???Age:68 Y???Sex:Female D ate:05/13/2024 [facility] Subjective: * Chief Complaints: * ???1. FASTING LIPIDS. * Medical History:? Objective: * Vitals:? Assessment: * Assessment: 1.?Hypercholesterolemia - E7 8.00 (Primary)??? Plan: * Treatment: * Procedure Codes:?53442 VENIP UNCT, ROUTINE* * * The named appointment provid er may or may not be the originator of this progress note, and it is not deemed complete until electronically signed by the appointment provider. Sign off status: Pending * Provider:?Cristo Jacobsen MD Date:?0 05/13/2024 Generated for Sushila brambila/Raghav/Coreysmitting on:?05/13/2024 12:33 PM EST
--- OUTSIDE RECORDS SUMMARY | 2024-05-13 12:33 | XMS_ITS ---
Author Organization Cristo Jacobsen MD Address [address] [place] [phone] Care Team Providers Care Vac Press Operator Name Role Phone Cristo Jacobsen Primary Care Provider [phone] Medications Medication SIG (Take, Route, Frequency, Duration) Notes Start Date End Date Status Levothyroxine Sodium 50 MCG one tablet O rally Once a day for 90 days Active Encounters Encounter Location Date Provider Diagnosis Cristo Jacobsen MD [address] [place] [phone] 04/19/2024 Cristo Jacobsen Acquired hypothyroidism E03.9 Assessments Encounter Date Diagnosis (ICD Code) Assessment Notes Treatment Notes Treatment Clinical Notes Section Notes 04/19/2024 Acquired hypothyroidism (ICD-10 - E03.9) Plan Of Treatment Medication Medication Name Sig Start Date Stop Date Notes Levothyroxine Sodium 50 MCG one tablet O rally Once a day for 90 days Next Appt Details Provider Name:Cristo mensah, 05/21/2024 10:00:00 AM, [address] [place] [address], [address], [phone], Provider Name:Cristo mensah, 11/05/2024 07:30:00 AM, [address] [place] [address], [phone], Provider Name:Cristo mensah, 11/12/2024 09:30:00 AM, [address] [place] [address], [phone], Progress Notes * Radha WARD ADOB: 7 (68 yo F)Acc No.[id number]:04/19/2024 Patient:?Radha WARD A :1955???Age:68 Y???Sex:Female Address:[address] [place] [address] * Refills? Refill Levothyroxine Sodium Tablet, 50 MCG, Orally, 90, one tablet, Once a day, 90 days, Refills=3 * true * Date:? Generated for Sushila brambila/Raghav/eTransmitting on:?05/13/2024 12:33 PM EST
--- OUTSIDE RECORDS SUMMARY | 2024-05-13 12:33 | XMS_ITS ---
Author Organization Cristo Jacobsen MD Address [address] [place], [place] [id number] Care Team Providers Care Janitor Name Role Phone Cristo Jacobsen Primary Care Provider [phone] Results Component Value Reference Range Notes Complete Blood Count Auto Di ff Reviewed date:01/13/2024 08:42:00 PM Interpretation: Performing Lab:[facility], [address] [place] [id number] Notes/Report: White Blood Count 6.4 4.8-10.8 X10*3/uL [...] Location Date Provider Diagnosis Cristo Jacobsen MD [address] [place] [phone] 01/13/2024 Cristo Jacobsen Lymphocytosis D72.82 0 and Encounter for immunization Z23 Assessments Encounter Date Diagnosis (ICD Code) Assessment Notes Treatment Notes Treatment Clinical Notes Section Notes 01/13/2024 Lymphocytosis (ICD-10 - D72.820) 01/13/2024 Encounter for immunization (ICD-10 - Z23) Plan Of Treatment Next Appt Details Provider Name:Cristo mensah, 05/21/2024 10:00:00 AM, [address] [place] [address], [phone], Provider Name:Cristo mensah, 11/05/2024 07:30:00 AM, [address] [place] [address], [phone], Provider Name:Cristo loyar, 11/12/2024 09:30:00 AM, [address] [place] [address], [phone], Progress Notes * Radha WARD ADOB: (68 yo F)Acc No.[id number]:01/13/2024 Progress Note Patient:?Radha Ward Provider:?Cristo Jacobsen MD :1955???Age:68 Y???Sex:Female D ate:01/13/2024 Address:[place], [place] Subjective: * Chief Complaints: * ???CBC W/ AUTO DIFF * Medical History:? * Surgical History:? * Hospitalization/Major Diagno stic Procedure:? * Medications:? Objective: Assessment: * Assessment: 1.?Lymphocytosis - D72.820 ( Primary)?2.?Encounter for immunization - Z23? Plan: * Treatment: * Immunizations:? Fluarix Quadrivalent - 150 : 0.5 mL (Dose No:1) (Route: Intramuscular) given by Audrey Fierro on Left Deltoid * Procedure Codes:?08107 VENIP UNCT, ROUTINE*22497 FLU VACCINE NO PRESERV 3 & >G0008 ADMN FLU VAC NO FEE SCHED SAME DAY * * Sign off status: Completed true * Provider:?Cristo Jacobsen MD Date:?1 Generated for Sushila brambila/Raghav/eTransmitting on:?05/13/2024 12:33 PM EST
--- OUTSIDE RECORDS SUMMARY | 2024-05-13 12:33 | XMS_ITS ---
Author Organization [facility] Address [address] [address] Care Team Providers Care Social Media Designer Name Role Phone Cristo Jacobsen MD Primary Care Provider Linn Adhikari Unavailable [phone] Allergies Allergen (clinical drug ingredient) Drug/Non Drug Allergy documented on EMR Reaction Allergy Type Onset Date Status acetaminophen / oxycodone Percocet Unknown Drug Allergy Active REASON FOR VISIT LR MEDICARE PE, Annual MOTOR WINDER Physical 60-85+ Medications Medication SIG (Take, Route, Frequency, Duration) Notes Start Date End Date Status Metoprolol Succinate ER 25 MG TAKE 1 TABLET BY MOUTH EVERY DAY FOR 30 DAYS Oral for 90 Active Levothyroxine Sodium 50 MCG 1 tablet Ora lly Once a day Active Crestor 10 MG 1 tablet Orally Once a day Active Albuterol Active Yuvafem 10 MCG 1 tablet Vaginal TWI CE A WEEK for 90 days 07/03/2021 Active Vitamin D3 50 MCG (2000 UT) 1 capsule Or ally Once a day for 30 day(s) Active Advair Diskus 250-50 MCG/DOSE 1 puff Inhalation Twice a day Active Yuvafem 10 MCG 1 tablet Vaginal TWI CE A WEEK for 90 days 07/04/2022 Active Yuvafem 10 MCG 1 tablet Vaginal TWI CE A WEEK for 90 days 07/10/2023 Active Eliquis 5 MG TAKE 1 TABLET ORALLY 2 TIMES A DAY Oral for 30 Active Vital Signs Temperature 96.8 degrees Fahrenheit 07/10/19 24 Blood pressure systolic 104 mm Hg 07/10/19 24 Blood pressure diastolic 62 mm Hg 024 Height 64 in 07/10/2023 Weight 87 lbs 07/10/2023 BMI 14.93 kg/m2 07/10/2023 Encounters Encounter Location Date Provider Diagnosis [facility] [address] [place] [address] 07/10/2023 Linn Medina Encounter for gynecological examination (general) (routine) without abnormal findings Z01.419 ; Encounter for screening mammogram for malignant neoplasm of breast Z12.31 ; Other specified disorders of bone density and structure, multiple sites M85.89 and Postmenopausal atrophic vaginitis N95.2 Assessments Encounter Date Diagnosis (ICD Code) Assessment Notes Treatment Notes Treatment Clinical Notes Section Notes 07/10/2023 Encounter for gynecological examination (general) (routine) without abnormal findings (ICD-10 - Z01.419) NO PAP TEST, DUE IN 2024. 07/10/2023 Encounter for screening mammogram for malignant neoplasm of breast (ICD-10 - Z12.31) REGULAR MAMMOGRAMS AND SBE'S WERE RECOMMENDED. 07/10/2023 Other specified disorders of bone density and structure, multiple sites (ICD-10 - M85.89) DISCUSSED HER RECENT BMD AND OSTEOPENIA AND ITS IMPACT ON HER HEALTH. ADEQUATE CALCIUM AND VIT D. WEIGHT BEARING EXERCISES. REPEAT BMD IN 2024. 07/10/2023 Postmenopausal atrophic vaginitis (ICD-10 - N95.2) CONTINUE YUVAFEM. DISCUSSED ITS POSITIVE EFFECTS. Plan Of Treatment Medication Medication Name Sig Start Date Stop Date Notes Yuvafem 10 MCG 1 tablet Vaginal TWICE A WEEK for 90 days 0 07/10/2023 Treatment Notes Assessment Notes Encounter for gynecological examination (general) (routine) without abnormal findings NO PAP TEST, DUE IN 2024. Encounter for screening mamm ogram for malignant neoplasm of breast REGULAR MAMMOGRAMS AND SBE'S WERE RECOMMENDED. Other specified disorders of bone density and structure, multiple sites DISCUSSED HER RECENT BMD AND OSTEOPENIA AND ITS IMPACT ON HER HEALTH. ADEQUATE CALCIUM AND VIT D. WEIGHT BEARING EXERCISES. REPEAT BMD IN 2024. Postmenopausal atrophic vaginitis CONTINUE YUVAFEM. DISCUSSED ITS POSITIVE EFFECTS. Pending Test Test Name Order Date MAMMOGRAM, SCREENING 07/10/2023 MM Digital Mammo Screening 07/10/2023 Next Appt Details Follow Up: 1 Year, Reason: Provider Name:Linn ocampo, 07/12/2024 09:00:00 AM, [address], [place], [address], Progress Notes * PRISCILA WARDOB:1955 (67 yo F)Acc No.[id number]:07/10/2023 PROGRESS NOTES Patient:ARIANNA QUEVEDO Appointment Provider:?Linn ocampo M.D. :1955???Age:67 Y???Sex:Female D ate:07/10/2023 Address:[address] [place], [place] [id number] Pcp:Cristo Jacobsen MD Subjective: * Chief Complaints: * ???LR MEDICARE PEAnnual MOTOR WINDER Physical 60-85+ * HPI: ???New/Follow-up Patient Consult:? PAT ENTERED MENOPAUSE AT AGE 52.? SHE USES YUVAFEM FOR ATROPHIC VAGINITIS AND IS DOING WELL.? SHE DENIES DYSPAREUNIA. HER LAST MAMMOGRAM DONE IN JAN 2023 SHOWED BREASTS ARE NOT DENSE AND WAS NORMAL. HER LAST PAP TEST IN 2021 WAS NEGATIVE AND HPV NEGATIVE. HER LAST BMD IN 2022 SHOWED THE LOWEST T-SCORE TO BE -2.2 AT THE SPINE.? NO CHANGE FROM HER 2020 BMD.? FRAX=7%/0.9%. SHE HAD A COLONOSCOPY DONE IN 2019. PFIZER X 3. ???Annual:? Patient presents for annual exam, ages 60-85, postmenopausal. ?General Health Maintenance:?Current breast complaints:?no breast pain, mass, discharge, or skin changes ?Urinary problems:?patient reports no urinary health problems or bowel health problems ?Calcium intake:?takes adequate calcium via diet and supplementation ?Significant MOTOR WINDER problems:?no significant banding machine operator symptoms or problems * ROS:?general:?no?chest pain.?no?palpitations.?no?headache.?no?cough.?no?shortness of breath.?no?fever.?no?unexplained weight loss.?no?nausea/vomiting.?no?change in bowel movements.?no blood in stool.?no?genitourinary complaints.?no?skin complaints.? * Medical History:? * Tire Finisher History:?/ Para?3/3.?Sexual activity?currently sexually active.?Last Pap Smear:?07/03/21 NIL, NEG HPV, 03/25/18 NIL, NEG HRHPV, 02/2015 neg, NEG HRHPV, 09/20/10, neg.?Mammogram:?01/24/23 < 50% density, 12/07/21 < 50% density, 11/29/20 < 50% density, 07/01/18 < 50% density, 01/2017 normal, 02/2015 normal, 04/04/11, < 50% density.?Abnormal Pap Smear:?no history of abnormal pap smears.?LMP and menses?Leigha.? Control:?None.?Menopause: ?Began at age: ?52 ???Colonoscopy?2019 q 5 years, 2009.?Bone Density:?01/2024, 01/24/23, 11/29/20, 11/24/18, 01/2017.? * OB History:?Total pregnancies?3.?Total living children?3.?NVD?3.? * Surgical History:?Colonoscop y * Hospitalization/Major Diagno stic Procedure:?3 Vaginal Deliveries * Family History:?Mother: dece ased, Cervical Cancer, Asthma, Hypothyroid, Hypertension.?Father: , Coronary Artery Disease, [place].?Maternal Grand Father: Colon Cancer.? Sister: Rheumatoid Arthritis Sister: Hypothyroidism, Hyperlipidemia Sister: Hypothyroidism, Hyperlipidemia Sister: Hypothyroidism, Hyperlipidemia Brother: Coronary Artery Disease, CABG 4 Vessel Paternal Cousin: Breast Cancer. * Social History:?Tobacco Use:?Tobacco Use/Smoking?Are you a: nonsmoker.?Sexual History:?Sexual History?Had sex in the past 12 months (vaginal, oral, or anal)?: Yes, with: Men only, Prevention strategies discussed:: Other.?Details of Sexual History?Are you sexually active??Yes ???Drugs/Alcohol:?Drugs?Have you used drugs other than those for medical reasons in the past 12 months??No ?Alcohol Screen (Audit-C)?Did you have a drink containing alcohol in the past year?: No, Points: 0, Interpretation: Negative.?Miscellaneous:?Children: yes, 3. ?Domestic violence: no. ?Exercise: yes, Daily Treadmill, Spin Class 4x a week. ?Home smoke detector use: yes. ?Living with: spouse. ?Marital status: . ?Natural support system: yes. 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 ?Sexual abuse: no. ?Sexually active: yes, monogamous relationship. ?Verbal abuse: no. * Medications:?TakingCrestor 1 0 MG Tablet 1 tablet Orally Once a day Albuterol Yuvafem 10 MCG Tablet 1 tablet Vaginal TWICE A WEEK Metoprolol Succinate ER 25 MG Tablet Extended Release 24 Hour TAKE 1 TABLET BY MOUTH EVERY DAY FOR 30 DAYS Oral Levothyroxine Sodium 50 MCG Tablet 1 tablet Orally Once a day Eliquis 5 MG Tablet TAKE 1 TABLET ORALLY 2 TIMES A DAY Oral Vitamin D3 50 MCG (1999 UT) Capsule 1 capsule Orally Once a day Advair Diskus 250-50 MCG/DOSE Aerosol Powder Breath Activated 1 puff Inhalation Twice a day Yuvafem 10 MCG Tablet 1 tablet Vaginal TWICE A WEEK Taking Crestor 10 MG Tablet 1 tablet Orally Once a day Taking Albuterol Taking Yuvafem 10 MCG Tablet 1 tablet Vaginal TWICE A WEEK Taking Metoprolol Succinate ER 25 MG Tablet Extended Release 24 Hour TAKE 1 TABLET BY MOUTH EVERY DAY FOR 30 DAYS Oral Taking Levothyroxine Sodium 50 MCG Tablet 1 tablet Orally Once a day Taking Eliquis 5 MG Tablet TAKE 1 TABLET ORALLY 2 TIMES A DAY Oral Taking Vitamin D3 50 MCG (1999 UT) Capsule 1 capsule Orally Once a day Taking Advair Diskus 250-50 MCG/DOSE Aerosol Powder Breath Activated 1 puff Inhalation Twice a day Taking Yuvafem 10 MCG Tablet 1 tablet Vaginal TWICE A WEEK DiscontinuedAtorvastatin Calcium 10 MG Tablet 1 tablet Orally Once a day Medication List reviewed and reconciled with the patientDiscontinued Atorvastatin Calcium 10 MG Tablet 1 tablet Orally Once a day Medication List reviewed and reconciled with the patient * Allergies:?Percocet: Allergy no[Allergies Verified] Objective: * Vitals:?Ht: 64 in, Wt: 87 lb s, BMI:14.93Index, BP: 104/62 mm Hg, Temp: 96.8 F. * Examination: ???General Exam: ?CONSTITUTIONAL:?NECK/THYROID:?RESPIRATORY:?Auscultation: clear to auscultation bilaterally, Respiratory Effort: normal.?CARDIOVASCULAR:?Auscultation: regular rate and rhythm.?BREAST, Right:?BREAST, Left:?GASTROINTESTINAL:?MUSCULOSKELETAL:?SKIN:?NEURO/PSYCH:?Genitourinary: ?EXTERNAL GENITALIA:?VAGINA:?BLADDER:?URETHRA:?CERVIX:?UTERUS:?ADNEXA:?ANUS AND PERINEUM:? Assessment: * Assessment: 1.?Encounter for gynecologic al examination (general) (routine) without abnormal findings - Z01.419?2.?Encounter for screening mammogram for malignant neoplasm of breast - Z12.31?3.?Other specified disorders of bone density and structure, multiple sites - M85.89?4.?Postmenopausal atrophic vaginitis - N95.2? Plan: * Treatment: 2.?Encounter for screening m ammogram for malignant neoplasm of breast?Imaging: MM Digital Mammo Screening Notes: REGULAR MAMMOGRAMS AND SBE'S WERE RECOMMENDED.?? 3.?Other specified disorders of bone density and structure, multiple sites? Notes: DISCUSSED HER RECENT BMD AND OSTEOPENIA AND ITS IMPACT ON HER HEALTH. ADEQUATE CALCIUM AND VIT D. WEIGHT BEARING EXERCISES. REPEAT BMD IN 2024.?? 4.?Postmenopausal atrophic v aginitis? Start Yuvafem Tablet, 10 MCG, 1 tablet, Vaginal, TWICE A WEEK, 90 days, 24 Tablet, Refills 4.?? Notes: CONTINUE YUVAFEM. DISCUSSED ITS POSITIVE EFFECTS.?? * Imaging:? * ?Imaging: MAMMOGRAM, SCR EENING * Procedure Codes:? * Preventive Medicine:? ??YOUR PREVENTIVE WELLNESS PLAN:?Osteoporosis prevention?Calcium, D, strength training.?Breast Cancer Screening (Mammogram):?annually.?Cervical Cancer Screening (Pap Smear):?q 3 years with HPV screen.?Colorectal Cancer Screening:?q 10 years.? * Follow Up:?1 Year * Images: Billing Information: * Visit Code:? 51099 Preventive Care Est Pt. Age 65 and over. * Procedure Codes:? * Sign off status: Completed true * Appointment Provider:?Linn Medina M.D. Date:?07/10/2023 Generated for Sushila brambila/Raghav/Estelleitting on:?05/13/2024 12:32 PM EST History and Physical Notes * HPI (History of Present Illness) Category Sub-Category Detail Notes Category Not es New/Follow-up Patient Consult PAT ENTERED MENOPAUSE AT AGE 52. SHE USES YUVAFEM FOR ATROPHIC VAGINITIS AND IS DOING WELL. SHE DENIES DYSPAREUNIA. HER LAST MAMMOGRAM DONE IN JAN 2023 SHOWED BREASTS ARE NOT DENSE AND WAS NORMAL. HER LAST PAP TEST IN 2021 WAS NEGATIVE AND HPV NEGATIVE. HER LAST BMD IN 2022 SHOWED THE LOWEST T-SCORE TO BE -2.2 AT THE SPINE. NO CHANGE FROM HER 2020 BMD. FRAX=7%/0.9%. SHE HAD A COLONOSCOPY DONE IN 2019. PFIZER X 3. Annual General Health Maintenance: Current breast complaints:: no breast pain, mass, discharge, or skin changes Urinary problems:: patient r eports no urinary health problems or bowel health problems Calcium intake:: takes adequ ate calcium via diet and supplementation Significant MOTOR WINDER problems:: n o significant banding machine operator symptoms or problems Examination Category Sub-Category Detail Notes Category Not es General Exam CONSTITUTIONAL: General Appearan ce:: alert, in no acute distress, normal, well nourished NECK/THYROID: Thyroid:: normal size and shape Inspection/Palpation:: normal RESPIRATORY: Auscultation: clear to auscultation bilaterally, Respiratory Effort: normal CARDIOVASCULAR: Auscultation: regula r rate and rhythm GASTROINTESTINAL: Hernias:: no hernias present, no inguinal adenopathy Liver and Spleen:: normal Abdomen:: no masses, nontender, nondiste nded MUSCULOSKELETAL: Inspection/Palpation:: no clubb ing, cyanosis, or edema SKIN: Skin:: normal NEURO/PSYCH: Mood/Affect:: normal Orientation:: time , place, person BREAST, Right: Inspection/Palpation :: no discharge, no masses present, no nipple retraction, no skin changes, no skin dimpling, no tenderness, no lymphadenopathy, no axillary mass, no axillary tenderness BREAST, Left: Inspection/Palpation :: no discharge, no masses present, no nipple retraction, no skin changes, no skin dimpling, no tenderness, no lymphadenopathy, no axillary mass, no axillary tenderness Genitourinary EXTERNAL GENITALIA: External Genitalia:: nor mal, no lesions VAGINA: Vagina:: normal appearance, no a bnormal discharge, no lesions BLADDER: Bladder:: no mass, nontender URETHRA: Urethra:: no erythema or lesions present CERVIX: Cervix:: no lesions, nontender UTERUS: Uterus:: nontender, normal conto ur, normal mobility, normal size ADNEXA: Adnexa:: no masses, no tendernes s ANUS AND PERINEUM: Anus/Perineum:: visually norm al
--- OUTSIDE RECORDS SUMMARY | 2024-05-13 12:33 | XMS_ITS | Patient Health Record ---
Author Organization [facility] Address [address] [place] [address] Care Team Providers Care Report Checker Name Role Phone Cristo Jacobsen MD Primary Care Provider Saúl Garcia Jr ALLERGIES Allergen (clinical drug ingredient) Drug/Non Drug Allergy documented on EMR Reaction Allergy Type Onset Date Status Seasonal IC Unknown Drug Allergy Activ e REASON FOR REFERRAL No Information MEDICATIONS Medication SIG (Take, Route, Frequency, Duration) Notes Start Date End Date Status Advair Diskus Active Aspir-81 Active Levothyroxine Sodium Active Ibuprofen PRN Active MiraLax (colon prep) 8.3 ounce ((238) grams mixed with Gatorade or Crystal Light orally begin at 5:00 p.m. the day before the procedure for 1 day 12/20/2019 Active Vagifem 2-3 x week Active Tylenol PRN Active Vitamin D3 Active Claritin PRN Active Lipitor Active IMMUNIZATIONS Vaccine Route Administration Date Status Comme nts Influenza Unknown 12/14/2019 Administered SOCIAL HISTORY Tobacco Use: Social History Observation Description Date Details (start date - stop date) Never Smoker NA - NA Sex Assigned At : Social History Observation Description Sex Assigned At Unknown Tobacco Use/Smoking Question Answer Notes Patient is a nonsmoker Alcohol Screen Question Answer Notes Did you have a drink containing alcohol in the p ast year? No Points 0 Interpretation Negative PROBLEMS Problem Type ICD Code Onset Dates Problem Status W/U Status Risk SNOMED Code Notes Problem Colon cancer screening (Z12.11) Active confirmed 962908019 Problem Encounter for other preprocedural examination (Z01.818) Active confirmed 837477880 PLAN OF TREATMENT Future Test Test Name Order Date COLONOSCOPY 12/20/2019 Insurance Providers Payer Name Payer Address Payer Phone Subscriber Number Group Number Insured Name Patient Relationship to Insured Coverage Start Date Coverage End Date [facility] [address] [place], [place] [id number] ARIANNA WARD Self - patient is the insured MEDICAL (GENERAL) HISTORY Medical History History ICD Code Hypothyroidism hyperlipidemia asthma Surgical History Surgery Date(Month/Year)
--- OUTSIDE RECORDS SUMMARY | 2024-05-13 12:34 | XMS_ITS | Patient Health Record ---
Author Organization [facility] Address [address] [place] [address] Care Team Providers Care Wood Coater Name Role Phone Ann-Marie MELO, Cristo Primary Care Provider Linn Adhikari [phone] Allergies Allergen (clinical drug ingredient) Drug/Non Drug Allergy documented on EMR Reaction Allergy Type Onset Date Status acetaminophen / oxycodone Percocet Unknown Drug Allergy Active Reason For Referral No Information Medications Medication SIG (Take, Route, Frequency, Duration) Notes Start Date End Date Status Metoprolol Succinate ER 25 MG TAKE 1 TABLET BY MOUTH EVERY DAY FOR 30 DAYS Oral for 90 Active Levothyroxine Sodium 50 MCG 1 tablet Ora lly Once a day Active Eliquis 5 MG TAKE 1 TABLET ORALLY 2 TIMES A DAY Oral for 30 Active Vitamin D3 50 MCG (1999 UT) 1 capsule Or ally Once a day for 30 day(s) Active Advair Diskus 250-50 MCG/DOSE 1 puff Inhalation Twice a day Active Yuvafem 10 MCG 1 tablet Vaginal TWI CE A WEEK for 90 days 07/04/2022 Active Crestor 10 MG 1 tablet Orally Once a day Active Yuvafem 10 MCG 1 tablet Vaginal TWI CE A WEEK for 90 days 07/10/2023 Active Albuterol Active Yuvafem 10 MCG 1 tablet Vaginal TWI CE A WEEK for 90 days 07/03/2021 Active Problems Problem Type SNOMED Code ICD Code Onset Dates Problem Status W/U Status Risk Notes Problem Postmenopausal atrophic vaginitis (52323905) Postmenopausal atrophic vaginitis (N95.2) Active confirmed Vital Signs Temperature 96.8 degrees Fahrenheit 07/10/2023 Blood pressure diastolic 62 mm Hg 07/10/2023 Height 64 in 07/10/2023 Blood pressure systolic 104 mm Hg 07/10/2023 Weight 87 lbs 07/10/2023 BMI 14.93 kg/m2 07/10/2023 Encounters Encounter Location Date Provider Diagnosis Total [facility] [address] [place] [address] 07/10/2023 Linn Medina Encounter for gynecological examination [...] DISCUSSED ITS POSITIVE EFFECTS. Plan Of Treatment Pending Test Test Name Order Date MAMMOGRAM, SCREENING 07/03/2021 MAMMOGRAM, SCREENING 07/10/2023 BONE DENSITY 07/04/2022 MM Digital Mammo Screening 07/10/2023 MM Digital Mammo Screening 07/04/2022 MM Digital Mammo Screening 03/25/2017 MM Digital Mammo Screening 03/30/2019 MM Digital Mammo Screening 06/28/2020 MM Digital Mammo Screening 07/03/2021 Next Appt Details Provider Name:Linn Ramírez gabbynathaniel, 07/12/2024 09:00:00 AM, [address], [place], [address], Insurance Providers Payer Name Payer Address Payer Phone Subscriber Number Group Number Insured Name Patient Relationship to Insured Coverage Start Date Coverage End Date MEDICARE [address] [place]THE[place] BOWENS [id number] [phone] [id number] ARIANNA WARD Self - patient is the insured BC OF [facility] [address] [place] [address] [phone] [id number] SYLVIA ACOSTA Spouse - patient is the spouse of the insured Medical (General) History Medical History History ICD Code Other asthma J45.998 Postmenopausal atrophic vaginitis N95.2 Disorder of thyroid, unspecified E07.9 Disorder of bone density and structure, unspecified M85.9 Other specified disorders of bone densit y and structure, multiple sites M85.89 AFIB Surgical History Surgery Date(Month/Year) Colonoscopy Hospitalization History Reason Date(Month/Year) 3 Vaginal Deliveries
== END 2024-05-13 11:11 | disposition home or self-care (01) ==
LOC: HO.LNP 11:10
PROVIDERS: Visit Provider Internal Medicine
DX: E78.00 Pure hypercholesterolemia, unspecified (principal)
CPT/HCPCS: 80061

== ENCOUNTER 2024-08-11 09:16 | Outpatient (REF) | payer MEDICARE, BC, SELFPAY ==
[2024-08-11 10:35] LABS: Hematocrit 40.1 % (37.0-47.0); Hemoglobin 13.3 g/dl (12.0-16.0); Mean Corpuscular HGB Conc 33.2 g/dl (31.0-35.0); Mean Corpuscular Hemoglobin 31.9 pg (27.0-33.0); Mean Corpuscular Volume 96.2 fL (80.0-98.0); Mean Platelet Volume 9.8 fL (9.4-12.3); Platelet Count 304 X10*3/uL (160-400); Red Blood Count 4.17 X10*6/uL (4.20-5.50); Red Cell Distribution Width 12.2 % (11.0-16.0); White Blood Count 7.1 X10*3/uL (4.8-10.8)
[2024-08-11 11:13] LABS: Anion Gap 12 (12-20); Blood Urea Nitrogen 12 mg/dL (9-16); Calcium 9.7 mg/dL (8.4-10.2); Carbon Dioxide 27 mmol/L (22-29); Chloride 103 mmol/L (96-108); Estimated Glomerular Filt Rate > 60; Glucose Random 92 mg/dL (60-115); Potassium 4.2 mmol/L (3.3-5.1); Sodium 138 mmol/L (135-145)
[2024-08-11 11:29] LABS: TSH reflex Free T4 2.97 uIU/mL (0.32-4.0)
== END 2024-08-11 09:17 | disposition home or self-care (01) ==
LOC: HO.LAB 09:16
PROVIDERS: PCP Internal Medicine; Visit Provider Internal Medicine Cardiovascular Disease
DX: I48.0 Paroxysmal atrial fibrillation (principal); I34.0 Nonrheumatic mitral (valve) insufficiency; E03.9 Hypothyroidism, unspecified; Z79.01 Long term (current) use of anticoagulants
CPT/HCPCS: 36415; 80048; 83735; 84443; 85027; 93005; 99212

== ENCOUNTER 2024-08-11 09:16 | Outpatient (AMB) | payer MEDICARE, BC, SELFPAY ==
[2024-08-11 09:18] VITALS: BP 112/66; PULSE 56; BMI 17.8
--- NOTE | 2024-08-11 09:18 | A.OFFVIS_ITS ---
Vital Signs 08/11/24 09:18 Height 5 ft 4 in Weight 103 lb 9.876 oz BMI 17.8 BP 112/66 Blood Pressure Location Lt brachial Position Sitting Pulse 56 Intake Visit Reasons: 1 yr follow up Intake Note: 1 year follow-up with ekg has need extra flecanide the lasts few weeks Cosmetician Apprentice Required: No Allergies No Known Allergies Allergy (Verified 02/13/22 11:21) Medication List - Last Reconciled 08/11/24 by Tacho Valdes MD albuterol sulfate 90 mcg/actuation 0 mcg inhalation cholecalciferol (vitamin D3) 50 mcg PO DAILY Eliquis (apixaban) 5 mg PO BID NS flecainide 50 mg PO BID fluticasone propion-salmeterol 250-50 mcg/dose (Wixela Inhub) 1 puff inhalation BID levothyroxine 50 mcg PO QAM metoprolol succinate ER 25 mg PO DAILY rosuvastatin 10 mg PO DAILY HPI Comments Details: Radha comes for follow-up. She said over the last 3 weeks she had had episodes of atrial fibrillation for which she has a take extra flecainide. However she has also had intermittent episodes of atrial fibrillation when she is not symptomatic and heart rate is controlled. Patient said these episodes highly sy mptomatic when heart rates going rapid and she has to take it easy and laid down. Usually is associated with headache which is unusual. She has not noticed any clear pattern. She has not noticed any increasing shortness of breath, orthopnea, PND. No exertional chest pain. No change in her recent health. She has been taking oral anticoagulation therapy regularly. No bleeding issues or neurologic events. [facility] Medical History Mitral regurgitation Paroxysmal atrial fibrillation Asthma Hyperlipidemia Hypothyroid Surgical History Hx of colonoscopy Family History Mother HTN (hypertension) Cervical cancer Hyperthyroidism Father Heart attack Brother History of quadruple bypass Sister Hyperthyroidism Acute rheumatoid arthritis Sister Hypothyroid Hypercholesteremia Social History Alcohol intake: never Patient Tobacco Use Status: Never used Tobacco Review of Systems Const Denies chills, Denies fatigue, Denies fever(s), Denies frequent falls, Denies weakness, Denies weight gain and Denies weight loss ENT Denies dizziness Card Denies chest pain, Denies leg edema, Denies lightheadedness, Denies palpitations, Denies dyspnea, Denies dyspnea on exertion, Denies orthopnea and Denies other (loss of consciousness) Resp Denies cough, Denies dyspnea and Denies dyspnea on exertion GI Denies hematochezia and Denies change in stool character Musc Denies abnormal gait, Denies muscle weakness, Denies numbness, Denies radiating pain into limb and Denies tingling Neuro Denies Abnormal speech present, Denies abnormal gait, Denies dizziness, Denies frequent falls, Denies numbness, Denies tingling and Denies weakness Endo Denies fatigue and Denies palpitations Physical Exam Vital Signs: Last Vital Signs Pulse 56 08/11/24 09:18 BP 112/66 08/11/24 09:18 BMI result Body Mass Index 17.8 Const General: cooperative, comfortable, no acute distress, alert, awake, Physically active and well groomed Nutritional Appearance: thin Orientation/consciousness: patient oriented x3 Limitations: no limitations HEENT Head: Yes normocephalic and Yes atraumatic Neck Neck: Yes trachea midline, Yes supple and Yes no JVD Resp Effort & Inspection: normal respiratory effort Auscultation: clear to auscultation bilaterally Cardio Jugular venous distension: no JVD Palpation: normal PMI Rate: regular rate Rhythm: regular rhythm Heart sounds: S1 normal heart sound present, S2 normal heart sound present, no click, no gallops, no murmurs and no rubs GI Auscultation: normal bowel sounds Skin General skin exam: no rashes or lesions noted Neuro General: patient oriented x3 and no focal motor deficits Speech: No Abnormal speech present Extrem General: Yes no clubbing, cyanosis or edema Psych Appearance: grossly normal Office Procedures EKG Details: EKG shows normal sinus rhythm with right atrial enlargement with poor R-wave progression most likely due to lead placement [id number], Complete Assessment & Plan Assessment & Plan (1) Paroxysmal atrial fibrillation: Code(s): I48.0 - Paroxysmal atrial fibrillation Category: Medical Plan: Highly symptomatic paroxysmal atrial fibrillation with recently increased s ymptoms that limits and affect her quality of life. Discussed about rhythm management. Will increase flecainide to 100 mg b.i.d. and she can still take pill in pocket approach with extra flecainide if she has recurrent episodes. Can maximize flecainide to 150 mg b.i.d.. Will obtain EKG in 1 week's time. Follow up in the clinic in 6 weeks time. If she fails to manage rhythm and has continued episode can consider ablation therapy. This was discussed with her. She understands agrees. Continue full oral anticoagulation, currently on Eliquis 5 mg b.i.d.. Semi annual renal function test is recommended. (2) Mitral regurgitation: Code(s): I34.0 - Nonrheumatic mitral (valve) insufficiency Category: Medical Plan: Mild mitral regurgitation secondary mitral valve prolapse as well as tricuspid regurgitation secondary to tricuspid valve prolapse without any worsening symptoms related to it. Clinically does not appear to have any worsened regurgitation murmur. Continue monitor clinically. Echocardiogram every couple of years. Will follow up in the clinic in 6 months time, sooner p.r.n.. Thank you for allowing me to partake in her care Orders: Orders Magnesium Today I48.0 - Paroxysmal atrial fibrillation Basic Metabolic Panel Today I48.0 - Paroxysmal atrial fibrillation TSH reflex Free T4 Today I48.0 - Paroxysmal atrial fibrillation Complete Blood Count no Diff Today I48.0 - Paroxysmal atrial fibrillation Medications: New flecainide 100 mg PO Q12H 60 tabs 11RF Discontinued flecainide Discontinued Reason: Doctor's Order 50 mg PO BID 180 tabs 1RF Coding Level of Care Code Est Pt Level 4 (81988) Complex EM visit Add On G2211 Diagnoses Paroxysmal atrial fibrillation I48.0 Mitral regurgitation I34.0 CPT Codes EKG - CPT: 15691-[id number], Complete ([id number])
--- OUTSIDE RECORDS SUMMARY | 2024-08-11 10:32 | XMS_ITS ---
Author Organization Cristo Jacobsen MD Address [address] [place] [address] [phone] Care Team Providers Care Glazing Department Supervisor Name Role Phone Cristo Jacobsen Primary Care Provider [phone] Medications Medication SIG (Take, Route, Frequency, Duration) Notes Start Date End Date Status Levothyroxine Sodium 50 MCG one tablet O rally Once a day for 90 days Active Encounters Encounter Location Date Provider Diagnosis Cristo Jacobsen MD [address] [place] [address] [place] [address] [phone] 04/19/2024 Cristo Jacobsen Acquired hypothyroidism E03.9 Assessments Encounter Date Diagnosis (ICD Code) Assessment Notes Treatment Notes Treatment Clinical Notes Section Notes 04/19/2024 Acquired hypothyroidism (ICD-10 - E03.9) Plan Of Treatment Medication Medication Name Sig Start Date Stop Date Notes Levothyroxine Sodium 50 MCG one tablet O rally Once a day for 90 days Next Appt Details Provider Name:Cristo mensah, 11/05/2024 07:30:00 AM, [address] [place] [address], [address], [phone], Provider Name:Cristo mensah, 11/12/2024 09:30:00 AM, [address] [place] [address], [address], [phone], Progress Notes * Radha WARD ADOB: (68 yo F)Acc No.[id number]:04/19/2024 Patient:?Radha WARD :1955???Age:68 Y???Sex:Female Address: [place] [address] * Refills? Refill Levothyroxine Sodium Tablet, 50 MCG, Orally, 90, one tablet, Once a day, 90 days, Refills=3 * true * Date:? Generated for Sushila brambila/Raghav/eTkarthiksmitting on:?08/11/2024 10:32 AM EDT
--- OUTSIDE RECORDS SUMMARY | 2024-08-11 10:32 | XMS_ITS ---
Author Organization Cristo Jacobsen MD Address [address] [place] [address] [phone] Care Team Providers Care Personal Injury Legal Assistant Name Role Phone Cristo Jacobsen Primary Care [...] Cristo Jacobsen MD [address] [place] [address] [phone] 05/21/2024 Cristo Jacobsen Hypercholesterolemia E78.00 ; Hyperlipidemia, [...] if it gets worse will send to [facility] Plan Of Treatment Medication [...] if it gets worse will send to [facility] Next Appt Details Provider Name:Cristo mensah, 11/05/2024 07:30:00 AM, [address] [place] [address], [address] [place] [address], [phone], Provider Name:Cristo mensah, 11/12/2024 09:30:00 AM, [address] [place] [address], Suite [facility], [place], [place], [phone], Progress Notes * Radha WARD ADOB: (68 yo F)Acc No.[id number]:05/21/2024 Progress Notes Patient:?SYLVIA Radha Ray Provider:?Cristo Jacobsen MD :1955???Age:68 Y???Sex:Female D ate:05/21/2024 [facility] Subjective: * Chief Complaints: * ???6 MO F/U * HPI: ???Symptom(s):?patient is a 68 yo female here for 6 month follow up visit, had 2 episodes of afib lately. chest feels heavy when it happens. asthma has been bad lately due to exposure to cats. took a few days to get better. . uses advair twece a day. * ROS:?General/Constitutional:?Denies?Chills.?Denies?Fatigue.?Denies?Fever.?Denies?Headache.?ENT:?Patient denies?decreased sense of smell, any loss of taste, sore throat.?Denies?Sore throat.?Respiratory:?Denies?Cough.?Denies?Shortness of breath at rest.?Denies?Shortness of breath with exertion.?Gastrointestinal:?Denies?Diarrhea.?Denies?Nausea.?Musculoskeletal:?Patient denies?muscle aches.?Peripheral Vascular:?Patient denies?red and blue toes.? * Medical History:? * Surgical History:? * Hospitalization/Major Diagno stic Procedure:? * Medications:?TakingFlecainid e Acetate 50 MG Tablet as directed Orally [...] ORALLY ONCE A DAY 90 DAYS * Allergies:?N.K.D.A.yes[Aller gies Verified] Objective: * Vitals:?Ht: 64, Wt: 94, BMI: 16.13, BP:112/60, Wt-k.64. weight is up 3 pounds since 11-13-23. * ???Past Orders: ???Lab:Lipid Panel with Refl ex (Order Date - 05/13/2024) (Collection Date & Time - 05/13/2024 07:30 AM) ? Value Reference Range ?Triglycerides 75 <150 - mg/dL ?Cholesterol 184 <200 - m g/dL ?LDL Cholesterol Calculated 110 H <100 - mg/dL ?HDL Cholesterol 59 >40 - mg/dL * Examination: ???General Examination: ?GENERAL APPEARANCE:?alert, well hydrated, in no distress.?HEAD:?normocephalic.?SKIN:?good turgor.?HEART:?no murmurs, rubs, gallops, regular rate and rhythm.?LUNGS:?few wheezes posteriorly.? Assessment: * Assessment: 1.?Hypercholesterolemia - E7 8.00 (Primary)???2.?Hyperlipidemia, unspecified hyperlipidemia type - E78.5???3.?Mild intermittent asthma without complication - J45.20???4.?De Quervain's disease (tenosynovitis) - M65.4??? Plan: * Treatment: 2.?Mild intermittent asthma without complication? Notes: has been doing well.?? 3.?De Quervain's disease (te nosynovitis)? Notes: if it gets worse will send to [facility]?? * Procedure Codes:? * * Sign off status: Completed true * Provider:?Cristo Jacobsen MD Date:?0 05/21/2024 Generated for Sushila brambila/Raghav/eTransmitting on:?08/11/2024 10:32 AM EDT History and Physical Notes * [...]
--- OUTSIDE RECORDS SUMMARY | 2024-08-11 10:32 | XMS_ITS ---
Author Organization Cristo Jacobsen MD Address [address] [place] [phone] Care Team Providers Care Mainframe Analyst Name Role Phone Cristo Jacobsen Primary Care Provider [phone] Results Component Value Reference Range Notes Lipid Panel with Reflex Reviewed date:05/13/2024 12:41:29 PM Interpretation: Performing Lab:[facility], [address] [place] [phone] Notes/Report: Triglycerides 75 <150 mg/dL Desirable Triglyceride: [...] Date Provider Diagnosis Cristo Jacobsen MD [address] [place] [id number] 05/13/2024 Cristo Jacobsen Hypercholesterolemia E78.00 Assessments Encounter Date Diagnosis (ICD Code) Assessment Notes Treatment Notes Treatment Clinical Notes Section Notes 05/13/2024 Hypercholesterolemia (ICD-10 - E78.00) Plan Of Treatment Pending Test Test Name Order Date Liver Panel 05/13/2024 Next Appt Details Provider Name:Cristo Diaz ier, 11/05/2024 07:30:00 AM, [address], [address], [place], [place], [phone], Provider Name:Cristo Diaz ier, 11/12/2024 09:30:00 AM, [address], [address], [place], [place], [phone], Progress Notes * SYLVIARadha FARIAS ADOB: (69 yo F)Acc No.[id number]:05/13/2024 Progress Note Patient:?Radha WARD Provider:?Cristo Jacobsen MD :1955???Age:68 Y???Sex:Female D ate:05/13/2024 Address:[address] [place], [place] [phone] Subjective: * Chief Complaints: * ???1. FASTING LIPIDS. * Medical History:? Objective: * Vitals:? Assessment: * Assessment: 1.?Hypercholesterolemia - E7 8.00 (Primary)??? Plan: * Treatment: * Procedure Codes:?50692 VENIP UNCT, ROUTINE* * * The named appointment provid er may or may not be the originator of this progress note, and it is not deemed complete until electronically signed by the appointment provider. Sign off status: Pending * Provider:?Cristo Jacobsen MD Date:?0 05/13/2024 Generated for Sushila brambila/Raghav/Coreysmitting on:?08/11/2024 10:32 AM EDT
--- OUTSIDE RECORDS SUMMARY | 2024-08-11 10:32 | XMS_ITS | Patient Health Record ---
Author Organization [facility] Address [address] [place] [address] Care Team Providers Care Vamp Wetter Name Role Phone Cristo Jacobsen MD Primary Care Provider Saúl Garcia Jr Allergies Allergen (clinical drug ingredient) Drug/Non Drug Allergy documented on EMR Reaction Allergy Type Onset Date Status Seasonal IC Unknown Drug Allergy Activ e Reason For Referral No Information Medications Medication [...] D3 Active Claritin PRN Active Lipitor Active Immunizations Vaccine Route Administration Date Status Comme nts Influenza Unknown 12/14/2019 Administered Social History Tobacco Use: Social History Observation [...] Problem Status W/U Status Risk Notes Problem 974398216 Colon cancer screening (Z12.11) Active confirmed Problem 211281747 Encounter for other preprocedural examination (Z01.818) Active confirmed Plan Of Treatment Future Test Test Name Order Date COLONOSCOPY 12/20/2019 Insurance Providers Payer Name Payer Address Payer Phone Subscriber Number Group Number Insured Name Patient Relationship to Insured Coverage Start Date Coverage End Date [facility] [address] [place], [place] [id number] ARIANNA WARD Self - patient is the insured Medical (General) History Medical History History ICD Code Hypothyroidism hyperlipidemia asthma Surgical History Surgery Date(Month/Year)
--- OUTSIDE RECORDS SUMMARY | 2024-08-11 10:33 | XMS_ITS | Patient Health Record ---
Author Organization Cristo Jacobsen MD Address [address] [place], [place] [phone] Care Team Providers Care Property Technician Name Role Phone Cristo Jacobsen Primary Care Provider [phone] Allergies No Known Allergies Results Component Value Reference Range Notes Complete Blood Count Auto Di ff Reviewed date:11/06/2023 12:53:23 PM Interpretation: Performing Lab:[facility], [address] [place] [phone] Notes/Report: White Blood Count 7.7 4.8-10.8 X10*3/uL [...] NRBC Abs Auto 0.000 0.0-0.012 X10*3/uL Comprehensive [place]. Panel Fa st Reviewed date:11/06/2023 04:53:39 PM Interpretation: Performing Lab:[address] [phone] Notes/Report: Sodium 140 135-145 mmol/L Potassium 4.0 3.3-5.1 mmol/L Chloride 105 96-108 mmol/L Carbon Dioxide 28 22-29 mmol/L Anion Gap 11 12-20 Blood Urea Nitrogen 14 9-16 mg/dL Creatinine 0.99 0.5-1.4 mg/dL Estimated Glomerular Filt Rate 56 NOTE: For -Mexican individuals, multiply the result by 1.210. Chronic [...] Panel Reviewed date:11/06/2023 04:52:55 PM Interpretation: Performing Lab:[facility], [address] [place] [phone] Notes/Report: Triglycerides 94 <150 mg/dL Desirable Triglyceride: [...] Total Reviewed date:11/06/2023 04:53:13 PM Interpretation: Performing Lab:[address] [phone] Notes/Report: Vitamin D 25-OH Total 60.2 >30 [...] T4 Reviewed date:11/06/2023 04:53:04 PM Interpretation: Performing Lab:[facility], [address] [place] [phone] Notes/Report: TSH reflex Free T4 4.34 0.32-4.0 uIU/mL UA ClnCatch+Micro w/rflx Cul t Reviewed date:11/06/2023 12:35:43 PM Interpretation: Performing Lab:[facility], [address] [place] [phone] Notes/Report: Urine, Clean Catch Color Urine Yellow Appearance Urine Clear PH 6.0 5.0-9.0 Glucose Urine UA Negative Negative mg/dL Urine Blood Negative Negative Specific [place] - Urine 1.010 1.005-1.025 Urine Protein Negative Neg-Trace mg/dL Urine Ketones Negative Negative mg/dL Nitrite Urine Negative Negative Leukocyte Esterase Urine Trace Negative RBC Urine 0-2 0-2 /HPF WBC Urine 0-5 0-5 /HPF Squamous Epithelial Cell Urine 0-2 0-2 /HPF Bacteria Urine None Seen None Seen Hyaline Casts Urine 0-2 0-2 /LPF Lipid Panel with Reflex Reviewed date:05/13/2024 12:41:29 PM Interpretation: Performing Lab:[address] [phone] Notes/Report: Triglycerides 75 <150 mg/dL Desirable Triglyceride: [...] low results in patients with liver disease. Complete Blood Count Auto Di ff Reviewed date:01/13/2024 08:42:00 PM Interpretation: Performing Lab:[address] [phone] Notes/Report: White Blood Count 6.4 4.8-10.8 X10*3/uL [...] X10*3/uL NRBC Abs Auto 0.000 0.0-0.012 X10*3/uL Free T4 (Free Thyroxine) Reviewed date:11/06/2023 04:53:22 PM Interpretation: Performing Lab:[address] [phone] Notes/Report: Free T4 (Free Thyroxine) 1.19 0.71-1.85 ng/dL Helena Black Reviewed date:11/06/2023 12:27:39 PM Interpretation: Performing Lab:[facility], [address] [place] [phone] Notes/Report: Helena Black See Note Specimen held untested for 24 hours; Call to request Chemistry testing. MAMMOGRAM DIGITAL BILATERAL SCREEN Reviewed date:02/10/2024 12:41:51 PM Interpretation:Negative Performing Lab: Notes/Report: Negative Helena Black Reviewed date:05/13/2024 12:40:41 PM Interpretation: Performing Lab:[facility], [address] [place] [phone] Notes/Report: Helena Black See Note Specimen held untested for 24 hours; Call to request Chemistry testing. Reason For Referral No Information Medications Medication [...] A DAY 90 DAYS for 90 Active Flecainide Acetate 50 MG as directed Orally bid Active Apixaban 5 MG as directed Orally BID Active Rosuvastatin Calcium 10 MG TAKE 1 TABLET BY MOUTH EVERY DAY FOR 30 DAYS Orally Once a day for 90 days Active Metoprolol Succinate ER 25 MG TAKE 1 TABLET BY MOUTH EVERY DAY FOR 30 DAYS Active Vitamin D 50 MCG (1999 [place]) 1 tablet Oral ly Once a day Active ProAir HFA 108 (90 Base) MCG/ACT 2 puffs as needed Inhalation every 4 hrs 07/21/2012 Active Immunizations Vaccine Route Administration Date Status Comme nts Flu Vaccine Unknown 02/22/2012 Administered Had flu kriss t @ work. Flu Vaccine Unknown 12/26/2012 Administered TDaP Unknown 10/05/2012 Administered Flu Vaccine Unknown 12/27/2013 Administered at work PPSV23 (Pnemovax) IM Intramuscular 10/13/2018 Administered Fluarix Quadrivalent Unknown 01/04/2019 Administered At work Tetanus Unknown 10/05/2012 Administered Fluarix Quadrivalent Unknown 12/06/2019 Administered [facility] Covid Vaccine Unknown 03/09/2020 Administered [facility] Covid Vaccine Unknown 03/30/2020 Administered [facility] Prevnar 13 IM Intramuscular 05/19/2020 Administered SARS-COV-2 Pfizer Unknown 12/24/2020 Administered Fluarix Quadrivalent - 150 IM Intramuscular 01/13/2024 Administered Shingrix Unknown 09/29/2017 Refused Social History Tobacco Use: Social History Observation [...] Problem Status W/U Status Risk Notes Problem Pure hypercholesterolemia (752974482) Pure hypercholesterolemia (E78.0) Active confirmed Problem Atrial fibrillation (19158420) Atrial fibrillation (I48.91) Active confirmed Problem 86072055 Lymphocytosis (D72.820) Active confirmed Problem 33074379 Vitamin D defici ency (E55.9) Active confirmed Problem 877567522 Acquired hypothyroidism (E03.9) Active confirmed Problem 172594523 Mild intermitten t asthma without complication (J45.20) Active confirmed Problem Irregular heart beat (773180284) Irregular heart beat (I49.9) Active confirmed Problem 95467805 Hypercholesterol emia (E78.00) Active confirmed Problem 62166181 Hyperlipidemia, unspecified hyperlipidemia type (E78.5) Active confirmed Problem 465536033 Osteopenia of sp ine (M85.88) Active confirmed Problem Mitral valve disorde r (76326691) Moderate mitral regurgitation (I34.0) Active confirmed Problem 872024559172709 Moderate persist ent asthmatic bronchitis with acute exacerbation (J45.41) Active confirmed Vital Signs Blood pressure diastolic 60 mm Hg 05/21/2024 john ght is up 3 pounds since 11-13-23 Height 64 in 05/21/2024 weight is up 3 pounds since 11-13-23 Blood pressure systolic 112 mm Hg 05/21/2024 weig ht is up 3 pounds since 11-13-23 Weight 94 lbs 05/21/2024 weight is up 3 pounds since 11-13-23 BMI 16.13 kg/m2 05/21/2024 weight is up 3 pounds since 11-13-23 Encounters Encounter Location Date Provider Diagnosis Cristo Jacobsen MD [address] [place] [id number] 11/06/2023 Cristo Jacobsen Acquired hypothyroid ism E03.9 ; Vitamin D deficiency E55.9 and Hypercholesterolemia E78.00 Cristo Jacobsen MD [address] [place] [id number] 05/13/2024 Cristo Jacobsen Hypercholesterolemia E78.00 Cristo Jacobsen MD [address] [place] [id number] 11/13/2023 Cristo Jacobsen Lymphocytosis D72.82 0 ; Polyp of colon, unspecified part of colon, unspecified type K63.5 ; Mild intermittent asthma without complication J45.20 ; Atrial fibrillation I48.91 ; Irregular heart beat I49.9 ; Hypercholesterolemia E78.00 ; Vitamin D deficiency E55.9 ; Acquired hypothyroidism E03.9 and Depression screening Z13.31 Cristo Jacobsen MD [address] [place] [id number] 01/13/2024 Cristo Jacobsen Lymphocytosis D72.82 0 and Encounter for immunization Z23 Cristo Jacobsen MD [address] [place] [id number] 05/21/2024 Cristo Jacobsen Hypercholesterolemia E78.00 ; Hyperlipidemia, unspecified hyperlipidemia type E78.5 ; Mild intermittent asthma without complication J45.20 and De Quervain's disease (tenosynovitis) M65.4 Cristo Jacobsen MD [address] [place] [id number] 10/03/2023 Cristo Jacobsen Mild intermittent as thma without complication J45.20 Cristo Jacob[address] [place] [id number] 04/19/2024 Cristo Jacobsen Acquired hypothyroid ism E03.9 Assessments Encounter Date Diagnosis (ICD Code) Assessment Notes Treatment Notes Treatment Clinical Notes Section Notes 11/06/2023 Acquired hypothyroid ism (ICD-10 - E03.9) 11/06/2023 Vitamin D deficiency (ICD-10 - E55.9) 05/13/2024 Hypercholesterolemia (ICD-10 - E78.00) 11/13/2023 Lymphocytosis (ICD-1 0 - D72.820) stable, will continue to monitor 11/13/2023 Polyp of colon, unspecified part of colon, unspecified type (ICD-10 - K63.5) need biopsy results/REQUE ST FAXED TO HIM @ [facility] 01/13/2024 Lymphocytosis (ICD-1 0 - D72.820) 01/13/2024 Encounter for immunization (ICD-10 - Z23) 05/21/2024 Hypercholesterolemia (ICD-10 - E78.00) had run out of meds for 2 weeks. will continue current regiment 05/21/2024 Hyperlipidemia, unspecified hyperlipidemia type (ICD-10 - E78.5) 10/03/2023 Mild intermittent as thma without complication (ICD-10 - J45.20) 04/19/2024 Acquired hypothyroid ism (ICD-10 - E03.9) 11/06/2023 Hypercholesterolemia (ICD-10 - E78.00) 11/13/2023 Mild intermittent as thma without complication (ICD-10 - J45.20) not having any problems. will continue current regiment 05/21/2024 Mild intermittent as thma without complication (ICD-10 - J45.20) has been doing well. 11/13/2023 Atrial fibrillation (ICD-10 - I48.91) comes and goes occasionally, will continue current regiment 05/21/2024 De Quervain's diseas e (tenosynovitis) (ICD-10 - M65.4) if it gets worse will send to [facility] 11/13/2023 Irregular heart beat (ICD-10 - I49.9) [...] and counseling the patient. Plan Of Treatment Pending Test Test Name Order Date Electrocardiogram (EKG) 08/31/2015 XR CHEST 2 VIEW PA & LAT 02/28/2022 BONE DENSITY DEXA 11/07/2020 Liver Panel 05/13/2024 ECG 30 day event monitor 07/20/2021 Next Appt Details Provider Name:Cristo mensah, 11/05/2024 07:30:00 AM, [address] [facility], [address], [place], [place], [phone], Provider Name:Cristo mensah, 11/12/2024 09:30:00 AM, [address], [address], [place], [place], [phone], Insurance Providers Payer Name Payer Address Payer Phone Subscriber Number Group Number Insured Name Patient Relationship to Insured Coverage Start Date Coverage End Date MEDICARE [facility] [address] [place] [address] [id number] Radha Bay Self - patient is the insured [employer] [address] [place], [place] [id number] Abdiel Bay Spouse - patient is the spouse of the insured Medical (General) History Medical History History ICD Code colonoscopy 2008 incomplete won't go for colonoscopy; colonoscopy done 01/19/[address] Kirby - repeat pending biopsy had cholesterol plaque CHADS score 2
--- OUTSIDE RECORDS SUMMARY | 2024-08-11 10:33 | XMS_ITS | Patient Health Record ---
Author Organization [facility] Address [address] [place] [address] Care Team Providers Care Crime Scene Specialist Name Role Phone Ann-Marie MELO, Cristo Primary Care Provider Linn Adhikari Unavailable [phone] Allergies Allergen (clinical drug ingredient) Drug/Non Drug Allergy documented on EMR Reaction Allergy Type Onset Date Status acetaminophen / oxycodone Percocet Unknown Drug Allergy Active Reason For Referral No Information Medications Medication SIG (Take, Route, Frequency, Duration) Notes Start Date End Date Status Vitamin D3 50 MCG (1999) 1 capsule Or ally Once a day for 30 day(s) Active Metoprolol Succinate ER 25 MG TAKE 1 TABLET BY MOUTH EVERY DAY FOR 30 DAYS Oral for 90 Active Estradiol 10 MCG 1 tablet Vaginal Two times a Week for 90 days 07/12/2024 Active Rosuvastatin Calcium 10 MG TAKE 1 TABLET BY MOUTH EVERY DAY Oral for 90 Days Active Yuvafem 10 MCG 1 tablet Vaginal TWI CE A WEEK for 90 days 07/10/2023 Active Eliquis 5 MG TAKE 1 TABLET ORALLY 2 TIMES A DAY Oral for 30 Active Levothyroxine Sodium 50 MCG 1 tablet Ora lly Once a day Active Flecainide Acetate 50 MG TAKE 1 TABLET B Y MOUTH TWICE A DAY Oral for 90 Days Active Advair Diskus 250-50 MCG/DOSE 1 puff Inhalation Twice a day Active Social History Tobacco Use: Social History Observation Description Date Details (start date - stop date) Never Smoker NA - NA AUDIT-C (Standard) Question Answer Notes Did you have a drink containing alcohol in the p ast year? No Points 0 Interpretation Negative Tobacco Control (Standard) Question Answer Notes Tobacco use: Nonsmoker Problems Problem Type SNOMED Code ICD Code Onset Dates Problem Status W/U Status Risk Notes Problem Postmenopausal atrophic vaginitis (N95.2) Active confirmed Vital Signs Temperature 97.5 degrees Fahrenheit 07/12/2024 Blood pressure diastolic 60 mm Hg 07/12/2024 Height 64 in 07/12/2024 Blood pressure systolic 100 mm Hg 07/12/2024 Weight 93 lbs 07/12/2024 BMI 15.96 kg/m2 07/12/2024 Encounters Encounter Location Date Provider Diagnosis [address] [place] [address] 07/12/2024 Linn Medina Encounter for gynecological examination (general) (routine) with abnormal findings Z01.411 ; Encounter for screening mammogram for malignant neoplasm of breast Z12.31 ; Other specified disorders of bone density and structure, multiple sites M85.89 ; Postmenopausal atrophic vaginitis N95.2 and Dense breasts, unspecified R92.30 Assessments Encounter Date Diagnosis (ICD Code) Assessment Notes Treatment Notes Treatment Clinical Notes Section Notes 07/12/2024 Encounter for gynecological examination (general) (routine) with abnormal findings (ICD-10 - Z01.411) NO PAP TEST, DUE IN 2025. 07/12/2024 Encounter for screening mammogram for malignant neoplasm of breast (ICD-10 - Z12.31) REGULAR MAMMOGRAMS AND SBE'S WERE RECOMMENDED. 07/12/2024 Other specified disorders of bone density and structure, multiple sites (ICD-10 - M85.89) DISCUSSED HER LAST BMD AND OSTEOPENIA AND ITS IMPACT ON HER HEALTH. ADEQUATE CALCIUM AND VIT D. WEIGHT BEARING EXERCISES. REPEAT BMD THIS YEAR. 07/12/2024 Postmenopausal atrophic vaginitis (ICD-10 - N95.2) DISCUSSED FINDINGS, DX AND TX OPTIONS. DISCUSSED BENEFITS AND RISKS OF INTRAVAGINAL ESTROGEN AND ENCOURAGED PAT TO BE MORE CONSISTENT IN APPLYING THE MEDICATION. 07/12/2024 Dense breasts, unspecified (ICD-10 - R92.30) DISCUSSED DENSE BREASTS ON MAMMOGRAM AND ITS IMPLICATIONS. 3D MAMMOGRAMS WERE RECOMMENDED. QUESTIONNAIRE TO ASSESS BREAST CA RISK WAS GIVEN. IF RISK IS 20% OR MORE, WILL NEED ANOTHER MODALITY IN CHECKING THE BREASTS. Plan Of Treatment Pending Test Test Name Order Date MAMMOGRAM, SCREENING 07/03/2021 MAMMOGRAM, SCREENING 07/10/2023 BONE DENSITY 07/12/2024 BONE DENSITY 07/04/2022 MM Digital Mammo Screening 07/10/2023 MM Digital Mammo Screening 07/04/2022 MM Digital Mammo Screening 03/25/2017 MM Digital Mammo Screening 03/30/2019 MM Digital Mammo Screening 06/28/2020 MM Digital Mammo Screening 07/03/2021 MM Digital Mammo Screening 07/12/2024 Next Appt Details Provider Name:Linn ocampo, 07/14/2025 08:40:00 AM, [address], [address], [place], [address], Insurance Providers Payer Name Payer Address Payer Phone Subscriber Number Group Number Insured Name Patient Relationship to Insured Coverage Start Date Coverage End Date MEDICARE [address] [place], [place] [id number] ARIANNA WARD Self - patient is the insured [employer] [place] [address] [place] [address] [phone] [id number] ACOSTA WARD Spouse - patient is the spouse of the insured Medical (General) History Medical History History ICD Code Other asthma J45.998 Postmenopausal atrophic vaginitis N95.2 Disorder of thyroid, unspecified E07.9 Disorder of bone density and structure, unspecified M85.9 Other specified disorders of bone densit y and structure, multiple sites M85.89 Unspecified atrial fibrillation I48.91 Dense breasts, unspecified R92.30 Mammographic heterogeneous density, bila teral breasts R92.333 Mammographic fibroglandular density, darwin ateral breasts R92.323 Surgical History Surgery Date(Month/Year) Colonoscopy Hospitalization History Reason Date(Month/Year) 3 Vaginal Deliveries
== END 2024-08-11 09:54 | disposition home or self-care (01) ==
LOC: HO.HCS 09:16
PROVIDERS: PCP Internal Medicine; Visit Provider Internal Medicine Cardiovascular Disease
DX: I48.0 Paroxysmal atrial fibrillation (principal); I34.0 Nonrheumatic mitral (valve) insufficiency
CPT/HCPCS: 93010; 99214; G2211

== ENCOUNTER → 2024-08-18 13:49 | Outpatient (BNVA) | payer MEDICARE, BC, SELFPAY | PROVIDERS: PCP Internal Medicine; Visit Provider Internal Medicine Cardiovascular Disease ==

== ENCOUNTER 2024-11-05 09:52 | Outpatient (REF) | payer MEDICARE, BC, SELFPAY ==
--- OUTSIDE RECORDS SUMMARY | 2024-05-21 06:00 | XMS_ITS ---
Author Organization Cristo Jacobsen MD Address [address] [place] [address] [phone] Care Team Providers Care Gold Layer Name Role Phone Cristo Jacobsen Primary Care Provider [phone] Allergies No Known Allergies REASON FOR VISIT [...] Jacobsen MD [address] [place] [address] [phone] 05/21/2024 Cristo Jacobsen Hypercholesterolemia E78.00 ; Hyperlipidemia, [...] gets worse will send to [facility] Plan Of Treatment Medication Medication Name [...] gets worse will send to [facility] Next Appt Details Provider Name:Cristo mensah, 11/12/2024 09:30:00 AM, [address] [place] [address], [address], [place], [place], [phone], Progress Notes * Radha WARD ADOB: (68 yo F)Acc No.[id number]:05/21/2024 Progress Notes Patient: Radha ACHARYA Provider: Makeda Jacobsen MD :1955 A ge:68 Y S ex:Female Date:05/21/2024 [facility] [id number] Subjective: * Chief Complaints: * 6 MO [...] directed Orally BID Vitamin D 50 MCG (2000 UT) Tablet [...] 0 05/21/2024 Generated for Sushila brambila/Raghav/Estelleitting on: 0 11/05/2024 10:07 AM EDT History and Physical Notes * [...]
[2024-11-05 10:02] LABS: MANUAL DIFF FLAG NO
--- OUTSIDE RECORDS SUMMARY | 2024-11-05 10:08 | XMS_ITS | Patient Health Record ---
Author Organization [facility] Address [address] [place] [address] Care Team Providers Care Neighborhood Coordinator Name Role Phone Cristo Jacobsen MD Primary [...] Problem Status W/U Status Risk Notes Problem [id number] Colon cancer screening (Z12.11) Active confirmed Problem [id number] Encounter for other preprocedural examination (Z01.818) Active confirmed Plan Of Treatment Future Test Test Name Order Date COLONOSCOPY 12/20/2019 Insurance Providers Payer Name Payer Address Payer Phone Subscriber Number Group Number Insured Name Patient Relationship to Insured Coverage Start Date Coverage End Date [facility] [address] [place], [place] [id number] ARIANNA WARD Self - patient is the insured Medical (General) History Medical History History ICD Code Hypothyroidism hyperlipidemia asthma Surgical History Surgery Date(Month/Year)
--- OUTSIDE RECORDS SUMMARY | 2024-11-05 10:08 | XMS_ITS | Patient Health Record ---
Author Organization [facility] Address [address] [place] [phone] Care Team Providers Care Jewelry Estimator Name Role Phone Ann-Marie MELO, Cristo Primary Care Provider Linn Adhikari [phone] Allergies Allergen (clinical drug ingredient) Drug/Non Drug Allergy documented on EMR Reaction Allergy Type Onset Date Status acetaminophen / oxycodone Percocet Unknown Drug Allergy Active Reason For Referral No Information Medications Medication SIG (Take, Route, Frequency, Duration) Notes Start Date End Date Status Vitamin D3 50 MCG (1999) 1 capsule Or ally Once a day; Duration: 30 day(s) Active Metoprolol Succinate ER 25 MG TAKE 1 TABLET BY MOUTH EVERY DAY FOR 30 DAYS Oral; Duration: 90 Active Estradiol 10 MCG 1 tablet Vaginal Two times a Week; Duration: 90 days 07/12/2024 Active Rosuvastatin Calcium 10 MG TAKE 1 TABLET BY MOUTH EVERY DAY Oral; Duration: 90 Days Active Yuvafem 10 MCG 1 tablet Vaginal TWI CE A WEEK; Duration: 90 days 07/10/2023 Active Eliquis 5 MG TAKE 1 TABLET ORALLY 2 TIMES A DAY Oral; Duration: 30 Active Levothyroxine Sodium 50 MCG 1 tablet Ora lly Once a day Active Flecainide Acetate 50 MG TAKE 1 TABLET B Y MOUTH TWICE A DAY Oral; Duration: 90 Days Active Advair Diskus 250-50 MCG/DOSE [...] Status Risk Notes Problem Postmenopausal atrophic vaginitis (75577208) Postmenopausal atrophic vaginitis (N95.2) Active confirmed Vital Signs Temperature 97.5 degrees Fahrenheit 07/12/2024 Blood pressure diastolic 60 mm Hg 07/12/2024 Height 64 in 07/12/2024 Blood pressure systolic 100 mm Hg 07/12/2024 Weight 93 lbs 07/12/2024 BMI 15.96 kg/m2 07/12/2024 Encounters Encounter Location Date Provider Diagnosis [address] [place] [address] 07/12/2024 Linn Medina Encounter for gynecological examination [...] Name:Linn ocampo, 07/14/2025 08:40:00 AM, [address] [facility], [address], [place], [phone], Insurance Providers Payer Name Payer Address Payer Phone Subscriber Number Group Number Insured Name Patient Relationship to Insured Coverage Start Date Coverage End Date MEDICARE [address] [place] [id number] ARIANNA WARD Self - patient is the insured BCBS OF [facility] [address] [place] [address] [id number] ACOSTA WARD Spouse - patient is the [...]
[2024-11-05 10:14] LABS: Hematocrit 39.0 % (37.0-47.0); Hemoglobin 13.4 g/dl (12.0-16.0); Imm Gran Abs Auto 0.01 X10*3/uL (0.00-0.03); Imm Gran Pct Auto 0.1 % (0.0-0.4); Lymphocytes Absolute Auto 3.1 X10*3/uL (1.2-4.9); Mean Corpuscular HGB Conc 34.4 g/dl (31.0-35.0); Mean Corpuscular Hemoglobin 32.1 pg (27.0-33.0); Mean Corpuscular Volume 93.5 fL (80.0-98.0); NRBC Abs Auto 0.000 X10*3/uL (0.0-0.012); NRBC Pct Auto 0.0 /100WBC (0.0-0.2); Platelet Count 306 X10*3/uL (160-400); Red Blood Count 4.17 X10*6/uL (4.20-5.50); White Blood Count 7.9 X10*3/uL (4.8-10.8)
[2024-11-05 10:16] LABS: Appearance Urine Clear; Glucose Urine UA Negative (Negative); PH 6.0 (5.0-9.0); Specific Gravity - Urine 1.020 (1.005-1.025)
[2024-11-05 10:42] LABS: Alanine Aminotransferase 20 U/L (0-31); Albumin Level 4.4 g/dL (3.5-5.0); Alkaline Phosphatase 74 U/L (39-117); Anion Gap 12 (12-20); Aspartate Amino Transferase 32 U/L (5-31); Blood Urea Nitrogen 19 mg/dL (9-16); Calcium 9.2 mg/dL (8.4-10.2); Carbon Dioxide 28 mmol/L (22-29); Chloride 102 mmol/L (96-108); Cholesterol 173 mg/dL (<200); Estimated Glomerular Filt Rate 51; HDL Cholesterol 52 mg/dL (>40); Potassium 3.9 mmol/L (3.3-5.1); Sodium 138 mmol/L (135-145); Total Protein 6.9 g/dL (6.5-8.0); Triglycerides 94 mg/dL (<150)
== END 2024-11-05 09:53 | disposition home or self-care (01) ==
LOC: HO.LNP 09:52
PROVIDERS: Visit Provider Internal Medicine
DX: D72.820 Lymphocytosis (symptomatic) (principal); E03.9 Hypothyroidism, unspecified; E55.9 Vitamin D deficiency, unspecified; E78.00 Pure hypercholesterolemia, unspecified
CPT/HCPCS: 80053; 80061; 81001; 82306; 85025

== ENCOUNTER 2025-01-04 14:38 | Outpatient (REF) | payer MEDICARE, BC, SELFPAY ==
--- OUTSIDE RECORDS SUMMARY | 2024-05-13 03:30 | XMS_ITS ---
Author Organization Cristo Jacobsen MD Address [address] [place] [phone] Care Team Providers Care Spinal Surgeon Name Role Phone Cristo Jacobsen Primary Care Provider Results Component Value Reference Range Notes Lipid Panel with Reflex Reviewed date:05/13/2024 12:41:29 PM Interpretation: Performing Lab:[facility], [address] [place] [phone] Notes/Report: Triglycerides 75 <150 mg/dL Desirable Triglyceride: [...] Date Provider Diagnosis Cristo Jacobsen MD [address] [facility] [address] [place] [phone] 05/13/2024 Cristo Jacobsen Hypercholesterolemia E78.00 Assessments Encounter Date Diagnosis (ICD Code) Assessment Notes Treatment Notes Treatment Clinical Notes Section Notes 05/13/2024 Hypercholesterolemia (ICD-10 - E78.00) Plan Of Treatment Pending Test Test Name Order Date Liver Panel 05/13/2024 Next Appt Details Provider Name:Cristo Diaz ier, 05/12/2025 07:45:00 AM, [address], [address], [place], [place], [phone], Provider Name:Cristo Diaz ier, 05/16/2025 09:00:00 AM, [address], [address], [place], [place], [phone], Provider Name:Cristo Diaz ier, 11/10/2025 07:15:00 AM, [address] [place] [address] Drive, Suite [facility], [place], [place], [phone], Provider Name:Cristo Diaz ier, 11/17/2025 09:30:00 AM, [address] [place] [address], Suite [facility], [place], [place], [phone], Progress Notes * Radha WARD ADOB: (69 yo F)Acc No.[id number]:05/13/2024 Progress Note Patient: Radha ACHARYA A Provider: Makeda Jacobsen MD :1955 A ge:68 Y S ex:Female Date:05/13/2024 Address:[address] [place], [place] [phone] Subjective: * Chief Complaints: * 1 . [...] Jacobsen MD Date: 0 05/13/2024 Generated for Dianai kosta/Raghav/eTransmitting on: 1 05:31 PM EDT
--- OUTSIDE RECORDS SUMMARY | 2024-05-21 06:00 | XMS_ITS ---
Author Organization Cristo Jacobsen MD Address [address] [place] [address] [phone] Care Team Providers Care Hospitality Team Member Name Role Phone Cristo Jacobsen Primary Care [...] Cristo Jacobsen MD [address] [place] [address] [phone] 05/21/2024 Cristo Jacobsen Hypercholesterolemia E78.00 ; Hyperlipidemia, [...] if it gets worse will send to [facility] Plan Of Treatment Medication Medication Name [...] if it gets worse will send to [facility] Next Appt Details Provider Name:Cristo mensah, 05/12/2025 07:45:00 AM, [address], [address] [place] [address], [phone], Provider Name:Cristo mensah, 05/16/2025 09:00:00 AM, [address], [address] [place] [address], [phone], Provider Name:Cristo mensah, 11/10/2025 07:15:00 AM, [address] [place] [address] Drive, [address] [place] [address], [phone], Provider Name:Cristo mensah, 11/17/2025 09:30:00 AM, [address] [place] [address], [address] [place] [address], [phone], Progress Notes * Radha WARD ADOB: 7 (68 yo F)Acc No.[id number]:05/21/2024 Progress Notes Patient: Radha ACHARYA Provider: Makeda Jacobsen MD :1955 A ge:68 Y S ex:Female Date:05/21/2024 [facility] Subjective: * Chief Complaints: * 6 MO [...] 05/21/2024 Generated for Sushila brambila/Raghav/Estelleitting on: 1 05:31 PM EDT History and Physical Notes * HPI [...]
--- OUTSIDE RECORDS SUMMARY | 2024-11-05 03:30 | XMS_ITS ---
Author Organization Cristo Jacobsen MD Address [address] [place], [place] [phone] Care Team Providers Care Exercise Manager Name Role Phone Cristo Jacobsen Primary Care Provider Results Component Value Reference Range Notes Complete Blood Count Auto Di ff Reviewed date:11/05/2024 04:32:55 PM Interpretation: Performing Lab:[facility], [address] [place] [phone] Notes/Report: White Blood Count 7.9 4.8-10.8 X10*3/uL [...] NRBC Abs Auto 0.000 0.0-0.012 X10*3/uL Comprehensive [place]. Panel Fa st Reviewed date:11/05/2024 12:40:25 PM Interpretation: Performing Lab:[facility], [address] [place] [phone] Notes/Report: Sodium 138 135-145 mmol/L Potassium 3.9 [...] Panel Reviewed date:11/05/2024 12:41:10 PM Interpretation: Performing Lab:[address] [phone] Notes/Report: Triglycerides 94 <150 mg/dL Desirable Triglyceride: [...] Total Reviewed date:11/05/2024 04:28:34 PM Interpretation: Performing Lab:[address] [phone] Notes/Report: Vitamin D 25-OH Total 126.0 >30 [...] t Reviewed date:11/05/2024 04:33:19 PM Interpretation: Performing Lab:[facility], [address] [place] [phone] Notes/Report: Urine, Clean Catch Color Urine Yellow Appearance Urine Clear PH 6.0 5.0-9.0 Glucose Urine UA Negative Negative mg/dL Urine Blood Negative Negative Specific [place] - Urine 1.020 1.005-1.025 Urine Protein Negative [...] Location Date Provider Diagnosis Cristo Jacobsen MD [address] [place] [phone] 11/05/2024 Cristo Jacobsen Acquired hypothyroid ism E03.9 [...] Details Provider Name:Cristo mensah, 05/12/2025 07:45:00 AM, [address] [place] [address], [id number], Provider Name:Cristo mensah, 05/16/2025 09:00:00 AM, [address] [place] [address], [phone], Provider Name:Cristo mensah, 11/10/2025 07:15:00 AM, [address] [place] [address], [phone], Provider Name:Cristo mensah, 11/17/2025 09:30:00 AM, [address] [place] [address], [phone], Progress Notes * Radha WARD ADOB: [birth year] (69 yo F)Acc No.[id number]:11/05/2024 Progress Note Patient: Radha ACHARYA Provider: Makeda Jacobsen MD :1955 A ge:69 Y S ex:Female Date:11/05/2024 Address:[place], [id number] Subjective: * Chief Complaints: * 1 . [...] - 11/05/2024 07:30 AM) L AB: Comprehensive [place]. Panel Fast (Collection Date & Time - [...] - 11/05/2024 07:30 AM) L AB: Comprehensive [place]. Panel Fast (Collection Date & Time - [...] - 11/05/2024 07:30 AM) L AB: Comprehensive [place]. Panel Fast (Collection Date & Time - [...] 11/05/2024 Generated for Sushila brambila/Raghav/Estelleitting on: 1 05:31 PM EDT
--- OUTSIDE RECORDS SUMMARY | 2024-11-12 05:30 | XMS_ITS ---
Author Organization Crisot Jacobsen MD Address [address] [place], [place] [phone] Care Team Providers Care Smelter Charger Name Role Phone Cristo Jacobsen Primary Care [...] Date Provider Diagnosis Cristo Jacobsen MD [address] [place] [address] Drive [address] [place], [place] [phone] 11/12/2024 Cristo Jacobsen Mild intermittent asthma without [...] Reason: Provider Name:Cristo mensah, 05/12/2025 07:45:00 AM, [address] [place] [address] Drive, [address], [place], [place], [phone], Provider Name:Cristo mensah, 05/16/2025 09:00:00 AM, [address] [place] [address], [address], [place], [place], [phone], Provider Name:Cristo mensah, 11/10/2025 07:15:00 AM, [address], [address], [place], [place], [phone], Provider Name:Cristo Diaz rodrick, 11/17/2025 09:30:00 AM, [address], [address], [place], [place], [phone], Progress Notes * Radha WARD ADOB: (69 yo F)Acc No.[id number]:11/12/2024 Patient: Radha ACHARYA Provider: Makeda Jacobsen MD :1955 A ge:69 Y S ex:Female Date:11/12/2024 [id number] Subjective: * Chief Complaints: * R eview [...] * Family History: F ather: 80 yrs, [place]. M other: 81 yrs, cervical cancer. 3 [...] Cholesterol 52 >40 - mg/dL L ab:Comprehensive [place]. Panel Fast (Order Date - 11/05/2024) (Collection [...] mg/dL Urine Blood Negative Negative - Specific [place] - Urine 1.020 1.005-1.025 - Urine Protein [...] to auscultation bilaterally. BREASTS: d one by family centered specialist. ABDOMEN: s oft, nontender, nondistended, bowel sounds present, normal, no organomegaly , no masses palpable. RECTAL EXAM: d one by family centered specialist. FEMALE GENITOURINARY: d one by family centered specialist. EXTREMITIES: n o clubbing, cyanosis, or edema. [...] 11/12/2024 Generated for Sushila brambila/Raghav/Mitesh on: 1 05:31 PM EDT History and [...] cyanosi s, or edema BREASTS: done by family centered specialist RECTAL EXAM: done by family centered specialist FEMALE GENITOURINARY: done by family centered specialist ORAL CAVITY: mucosa moist
--- NOTE | ~2025-01-04 | XR_ITS ---
EXAMINATION: XR CHEST 2 VIEWS HISTORY: ASTHMATIC BRONCHITIS COMPARISON: Comparison is made with the prior examination dated 03/01/2022. FINDINGS: PA and lateral views of the chest are submitted. The lungs are hyperinflated, consistent with COPD. There is biapical scarring. There is patchy airspace opacity in the right middle lobe, consistent with pneumonia. There is no pleural effusion, pneumothorax, or pulmonary vascular congestion. The heart is normal in size. The bones are intact. XR/XR chest 2V IMPRESSION: COPD. Right middle lobe pneumonia. Follow-up is recommended to document resolution. Electronically signed by: Michael Lyn MD 01/04/2025 03:08 PM EDT
--- OUTSIDE RECORDS SUMMARY | 2025-01-04 07:15 | XMS_ITS ---
Author Organization Cristo Jacobsen MD Address [address] [place] [phone] Care Team Providers Care Biomass Boiler Operator Name Role Phone Cristo Jacobsen Primary Care Provider Allergies No Known Allergies REASON FOR VISIT coughing fatigue ? fractured rib x 3 weeks, Video [phone] Medications Medication SIG (Take, Route, Frequency, Duration) [...] Location Date Provider Diagnosis Cristo Jacobsen MD [address] [place] [address] [place] [phone] 01/04/2025 Cristo Jacobsen Moderate persistent asthmatic bronchitis with acute exacerbation J45.41 Assessments Encounter Date Diagnosis (ICD Code) Assessment Notes Treatment Notes Treatment Clinical Notes Section Notes 01/04/2025 Moderate persistent asthmatic bronchitis with acute exacerbation (ICD-10 - J45.41) patient verbalized understanding of medication and directions for use, chest x-ray [place] [facility] Plan Of Treatment Medication Medication Name Sig [...] for use, chest x-ray order faxed to [facility] Pending Test Test Name Order Date XR CHEST 2 VIEW PA & LAT 01/04/2025 Next Appt Details Provider Name:Cristo mensah, 05/12/2025 07:45:00 AM, [address] [place] [address], [address] [place] [address], [phone], Provider Name:Cristo mensah, 05/16/2025 09:00:00 AM, [address] [place] [address], [address], [phone], Provider Name:Cristo mensah, 11/10/2025 07:15:00 AM, [address] [place] [address], [address], [phone], Provider Name:Cristo mensah, 11/17/2025 09:30:00 AM, [address], [address], [place], [place], [phone], Progress Notes * Radha WARD ADOB: (69 yo F)Acc No.[id number]:01/04/2025 Patient: Radha ACHARYA Provider: Makeda Jacobsen MD :1955 A ge:69 Y S ex:Female Date:01/04/2025 Address:Anshul Alvarez [facility], [id number] Subjective: * Chief Complaints: * 1 . Coughing fatigue ? fractured rib x 3 weeks. 2. Video [phone]. * HPI: S ymptom(s): Telehealth L ocation of provider rendering services: [address], [address], ocation of patient: a t address listed in demographics for today's visit, P julien identification confirmed using: RUSTY Quesada ame, T elehealth method: V ideo conference where patient is visible to the provider of care, C onsent: P atient verbally consented to treatment, Patient verbally consented to billing insurance company, Patient informed of any privacy concerns related to method of visit, T otal time spend talking with patient (minutes) 0 . patient is a 69yo female video telehealth [...] D enies N ausea. * Medical History: c olonoscopy 2009 incomplete won't go for colonoscopy; colonoscopy done 01/19/[address] Kirby - repeat pending biopsy, Had cholesterol plaque, CHADS score 2. * Medications: T aking Flecainide Acetate 50 MG Tablet as directed Orally bid , Taking Vitamin D 50 MCG (2000 UT) Tablet 1 tablet Orally Once a day , Taking Metoprolol Succinate ER 25 MG Tablet Extended Release 24 Hour TAKE 1 TABLET BY MOUTH EVERY DAY FOR 30 DAYS , Taking Levothyroxine Sodium 50 MCG Tablet TAKE 1 TABLET BY MOUTH IN THE MORNING ON AN EMPTY STOMACH ONCE A DAY 90 ORALLY ONCE A DAY 90 DAYS , Taking Rosuvastatin Calcium 10 MG Tablet TAKE 1 TABLET BY MOUTH EVERY DAY FOR 30 DAYS Orally Once a day , Taking ProAir HFA 108 (90 Base) MCG/ACT Aerosol Solution 2 puffs as needed Inhalation every 4 hrs , Taking Wixela Inhub 250-50 MCG/ACT Aerosol Powder Breath Activated INHALE 1 PUFF BY MOUTH TWICE DAILY Inhalation Twice a day , Taking Apixaban 5 MG Tablet as directed Orally BID , Medication List reviewed and reconciled with the patient * Allergies: N .K.D.A. Objective: * Vitals: H t: 64. weight at home is 90 BP not taken no temp today. Assessment: * Assessment: 1. M oderate persistent asthmatic bronchitis with acute exacerbation - J45.41 (Primary) ? Plan: * Treatment: * * The named appointment provid er may or may not be the originator of this progress note, and it is not deemed complete until electronically signed by the appointment provider. Sign off status: Pending * Provider: Makeda Jacobsen MD Date: Generated for Sushila brambila/Raghav/Mitesh on: 05:31 PM EDT History and Physical Notes * HPI (History of Present Illness) Category Sub-Category Detail Notes Category Not es Symptom(s) [facility] [address], [address] [...] time spend talking with patient (m inutes): 0
--- OUTSIDE RECORDS SUMMARY | 2025-01-04 17:31 | XMS_ITS | Patient Health Record ---
Author Organization [facility] Address [address] [place] [address] Care Team Providers Care Spar Finisher Name Role Phone Cristo Jacobsen MD Primary Care Provider Saúl Garcia Jr [phone] Allergies Allergen (clinical drug ingredient) Drug/Non Drug [...] at 5:00 p.m. the day before the procedure; Duration: 1 day 12/20/2019 Active Vagifem 2-3 x [...] Problem Status W/U Status Risk Notes Problem Colon cancer screening (998269407) Colon cancer screening (Z12.11) Active confirmed Problem Pre-procedure evaluation check (243991978) Encounter for other preprocedural examination (Z01.818) Active confirmed Plan Of Treatment Future Test Test Name Order Date COLONOSCOPY 12/20/2019 Next Appt Details Provider Name:Saúl Gabe rae Jr, 04/27/2025 11:00:00 AM, [address] [facility], [address], [place], [address], Insurance Providers Payer Name Payer Address Payer Phone Subscriber Number Group Number Insured Name Patient Relationship to Insured Coverage Start Date Coverage End Date [facility] [address] [place], [place] [id number] ARIANNA WARD Self - patient is the insured Medical (General) History Medical History History ICD Code Hypothyroidism hyperlipidemia asthma Surgical History Surgery Date(Month/Year)
--- OUTSIDE RECORDS SUMMARY | 2025-01-04 17:32 | XMS_ITS | Patient Health Record ---
Author Organization Cristo Jacobsen MD Address [address] [place], [place] [phone] Care Team Providers Care Salesperson Yard Goods Name Role Phone Cristo Jacobsen Primary Care Provider [phone] Allergies No Known Allergies Results Component Value Reference Range Notes Lipid Panel with Reflex Reviewed date:05/13/2024 12:41:29 PM Interpretation: Performing Lab:[facility], [address] [place] [phone] Notes/Report: Triglycerides 75 <150 mg/dL Desirable Triglyceride: [...] ff Reviewed date:11/05/2024 04:32:55 PM Interpretation: Performing Lab:[facility], [address] [place] [phone] Notes/Report: White Blood Count 7.9 4.8-10.8 X10*3/uL [...] 0.0-0.2 /100WBC Neutrophils Absolute Auto 3.2 2.0-8.3 x10*3/uL Imm Gran Abs Auto 0.01 0.00-0.03 X10*3/uL Lymphocytes Absolute Auto 3.1 1.2-4.9 X10*3/uL Monocytes Absolute Auto 0.6 0.1-1.2 X10*3/uL Eosinophils Absolute Auto 0.9 0.0-0.4 X10*3/uL Basophils Absolute Auto 0.1 0.0-0.2 X10*3/uL NRBC Abs Auto 0.000 0.0-0.012 X10*3/uL Comprehensive Guild. Panel Fa st Reviewed date:11/05/2024 12:40:25 PM Interpretation: Performing Lab:[facility], [address] [place] [phone] Notes/Report: Sodium 138 135-145 mmol/L Potassium 3.9 [...] Panel Reviewed date:11/05/2024 12:41:10 PM Interpretation: Performing Lab:[facility], [address] [place] [phone] Notes/Report: Triglycerides 94 <150 mg/dL Desirable Triglyceride: [...] Total Reviewed date:11/05/2024 04:28:34 PM Interpretation: Performing Lab:[facility], [address] [place] [phone] Notes/Report: Vitamin D 25-OH Total 126.0 >30 [...] t Reviewed date:11/05/2024 04:33:19 PM Interpretation: Performing Lab:[facility], [address] [place] [phone] Notes/Report: Urine, Clean Catch Color Urine Yellow Appearance Urine Clear PH 6.0 5.0-9.0 Glucose Urine UA Negative Negative mg/dL Urine Blood Negative Negative Specific [place] - Urine 1.020 1.005-1.025 Urine Protein Negative Neg-Trace mg/dL Urine Ketones Negative Negative mg/dL Nitrite Urine Negative Negative Leukocyte Esterase Urine Negative Negative RBC Urine 0-2 0-2 /HPF WBC Urine 0-5 0-5 /HPF Squamous Epithelial Cell Urine 0-2 0-2 /HPF Bacteria Urine None Seen None Seen Hyaline Casts Urine 0-2 0-2 /LPF Complete Blood Count Auto Di ff Reviewed date:01/13/2024 08:42:00 PM Interpretation: Performing Lab:[facility], [address] [place] [phone] Notes/Report: White Blood Count 6.4 4.8-10.8 X10*3/uL [...] 0.0-0.2 /100WBC Neutrophils Absolute Auto 3.0 2.0-8.3 x10*3/uL Imm Gran Abs Auto 0.01 0.00-0.03 X10*3/uL Lymphocytes Absolute Auto 2.4 1.2-4.9 X10*3/uL Monocytes Absolute Auto 0.5 0.1-1.2 X10*3/uL Eosinophils Absolute Auto 0.4 0.0-0.4 X10*3/uL Basophils Absolute Auto 0.1 0.0-0.2 X10*3/uL NRBC Abs Auto 0.000 0.0-0.012 X10*3/uL MAMMOGRAM DIGITAL BILATERAL SCREEN Reviewed date:02/10/2024 12:41:51 PM Interpretation:Negative Performing Lab: Notes/Report: Negative Hold Gold Reviewed date:05/13/2024 12:40:41 PM Interpretation: Performing Lab:[address] [phone] Notes/Report: Hold Gold See Note Specimen held untested for 24 hours; Call to request Chemistry testing. Complete Blood Count no Diff Reviewed date:08/11/2024 03:55:35 PM Interpretation: Performing Lab:[address] [phone] Notes/Report: White Blood Count 7.1 4.8-10.8 X10*3/uL Red Blood Count 4.17 4.20-5.50 X10*6/uL Hemoglobin 13.3 12.0-16.0 g/dl Hematocrit 40.1 37.0-47.0 % Mean Corpuscular Volume 96.2 80.0-98.0 fL Mean Corpuscular Hemoglobin 31.9 27.0-33.0 pg Mean Corpuscular HGB Conc 33.2 31.0-35.0 g/dl Red Cell Distribution Width 12.2 11.0-16.0 % Platelet Count 304 160-400 X10*3/uL Mean Platelet Volume 9.8 9.4-12.3 fL NRBC Pct Auto 0.0 0.0-0.2 /100WBC NRBC Abs Auto 0.000 0.0-0.012 X10*3/uL Basic Metabolic Panel Reviewed date:08/11/2024 03:58:27 PM Interpretation: Performing Lab:[facility], [address] [place] [phone] Notes/Report: Sodium 138 135-145 mmol/L Potassium 4.2 3.3-5.1 mmol/L Chloride 103 96-108 mmol/L Carbon Dioxide 27 22-29 mmol/L Anion Gap 12 12-20 Blood Urea Nitrogen 12 9-16 mg/dL Creatinine 0.86 0.5-1.4 mg/dL Estimated Glomerular Filt Rate > 60 Chronic Kidney Disease: Estimated GFR < 60 mL/min/1.73m2 Severe Kidney Disease: Estimated GFR < 15 mL/min/1.73m2 Glucose Random 92 60-115 mg/dL Calcium 9.7 8.4-10.2 mg/dL Magnesium Reviewed date:08/12/2024 12:35:46 PM Interpretation: Performing Lab:[facility], [address] [place] [phone] Notes/Report: Magnesium 2.0 1.6-2.6 mg/dL TSH reflex Free T4 Reviewed date:08/11/2024 03:54:04 PM Interpretation: Performing Lab:[facility], [address] [place] [phone] Notes/Report: TSH reflex Free T4 2.97 0.32-4.0 uIU/mL Hold Gold Reviewed date:11/05/2024 12:40:00 PM Interpretation: Performing Lab:[facility], [address] [place] [phone] Notes/Report: Hold Gold See Note Specimen held untested for 24 hours; Call to request Chemistry testing. XR chest 2V Reviewed date:01/04/2025 05:01:37 PM Interpretation: Performing Lab: Notes/Report: [address] [address] XRay Report Signed Patient: Radha Bay MR#: [id number] 92 : 1955 Acct:[id number] Age/Sex: 69 / F ADM Date: 01/04/25 Loc: [facility] Attending Dr: Cristo Jacobsen MD Ordering Physician: Cristo Jacobsen MD Date of Service: 01/04/25 Procedure(s): XR chest 2V Accession Number(s): [id number] cc: Cristo Jacobsen MD Reason for Exam: ASTHMATIC BRONCHITIS EXAMINATION: XR CHEST 2 VIEWS HISTORY: ASTHMATIC BRONCHITIS COMPARISON: Comparison is made with the prior examination dated 03/01/2022. FINDINGS: PA and lateral views of the chest are submitted. The lungs are hyperinflated, consistent with COPD. There is biapical scarring. There is patchy airspace opacity in the right middle lobe, consistent with pneumonia. There is no pleural effusion, pneumothorax, or pulmonary vascular congestion. The heart is normal in size. The bones are intact. XR/XR chest 2V IMPRESSION: COPD. Right middle lobe pneumonia. Follow-up is recommended to document resolution. 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 FINDINGS: PA and lateral views of the chest are submitted. The lungs are hyperinflated, consistent with COPD. There is biapical scarring. There is patchy airspace opacity in the right middle lobe, consistent with pneumonia. Ther e is no pleural effusion, pneumothorax, or pulmonary vascular congestion. The heart is normal in size. The bones are intact. XR/XR chest 2V IMPRESSION: COPD. Right middle lobe pneumonia. Follow-up is recommended to document resolution. 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 No Information Medications Medication SIG (Take, Route, Frequency, Duration) Notes Start Date End Date Status Levothyroxine Sodium 50 MCG TAKE 1 TABLE T BY MOUTH IN THE MORNING ON AN EMPTY STOMACH ONCE A DAY 90 ORALLY ONCE A DAY 90 DAYS for 90 Active Zithromax Z-Vince 250 MG 2 tablet on [...] Orally bid Active Vitamin D 50 MCG (1999 UT) 1 tablet Oral ly Once a day Active Metoprolol Succinate ER 25 MG TAKE 1 TABLET BY MOUTH EVERY DAY FOR 30 DAYS Active predniSONE 10 MG as directed Orally 4 tabs for 3 days,3tabs for 3 days, 2 tabs for 3 days, and 1 tab for 3 days for 14 days 01/04/2025 Active Apixaban 5 MG as directed Orally BID Active Albuterol Sulfate HFA 108 (90 Base) MCG/ACT 1 puff as needed Inhalation every 4 hrs for 30 days 01/04/2025 Active Immunizations Vaccine Route Administration Date Status Comme nts Flu Vaccine Unknown 02/22/2012 Administered Had flu kriss t @ work. Flu Vaccine Unknown 12/26/2012 Administered TDaP Unknown 10/05/2012 Administered Flu Vaccine Unknown 12/27/2013 Administered at work PPSV23 (Pnemovax) IM Intramuscular 10/13/2018 Administered Fluarix Quadrivalent Unknown 01/04/2019 Administered At work Tetanus Unknown 10/05/2012 Administered Fluarix Quadrivalent Unknown 12/06/2019 Administered [facility] Covid Vaccine Unknown 03/09/2020 Administered [facility] Covid Vaccine Unknown 03/30/2020 Administered [facility] Prevnar 13 IM Intramuscular 05/19/2020 Administered SARS-COV-2 [...] W/U Status Risk Notes Problem Pure hypercholesterolemia (311780866) Pure hypercholesterolemia (E78.0) Active confirmed Problem Atrial fibrillation (23617596) Atrial fibrillation (I48.91) Active confirmed Problem 30303158 Lymphocytosis (D72.820) Active confirmed Problem 69124593 Vitamin D defici ency (E55.9) Active confirmed Problem 477585454 Acquired hypothyroidism (E03.9) Active confirmed Problem 204820902 Mild intermitten t asthma without complication (J45.20) Active confirmed Problem Irregular heart beat (694630430) Irregular heart beat (I49.9) Active confirmed Problem 86500455 Hypercholesterol emia (E78.00) Active confirmed Problem 56874218 Hyperlipidemia, unspecified hyperlipidemia type (E78.5) Active confirmed Problem 747729610 Osteopenia of sp ine (M85.88) Active confirmed Problem Mitral valve disorde r (93085875) Moderate mitral regurgitation (I34.0) Active confirmed Problem 628343791276023 Moderate persist ent asthmatic bronchitis with acute exacerbation (J45.41) Active confirmed Vital Signs Blood pressure diastolic 56 mm Hg 11/12/2024 john ght is down 1 poiund since 05-21-24 Height 64 in 01/04/2025 weight at home is 90 BP not taken no temp today Blood pressure systolic 84 mm Hg 11/12/2024 johng ht is down 1 poiund since 05-21-24 Weight 93 lbs 11/12/2024 weight is down 1 poiund since 05-21-24 BMI 15.96 kg/m2 11/12/2024 weight is down 1 poiund since 05-21-24 Encounters Encounter Location Date Provider Diagnosis Cristo Jacobsen MD [address] [place] [id number] 05/13/2024 Cristo Jacobsen Hypercholesterolemia E78.00 Cristo Jacobsen MD [address] [place] [id number] 11/05/2024 Cristo Jacobsen Acquired hypothyroid ism E03.9 ; Vitamin D deficiency E55.9 ; Hypercholesterolemia E78.00 and Lymphocytosis D72.820 Cristo Jacobsen MD [address] [place] [id number] 01/04/2025 Cristo Jacobsen Moderate persistent asthmatic bronchitis with acute exacerbation J45.41 Cristo Jacobsen MD [address] [place] [id number] 01/13/2024 Cristo Jacobsen Lymphocytosis D72.82 0 and Encounter for immunization Z23 Cristo Jacobsen MD [address] [place] [id number] 05/21/2024 Cristo Jacobsen Hypercholesterolemia E78.00 ; Hyperlipidemia, unspecified hyperlipidemia type E78.5 ; Mild intermittent asthma without complication J45.20 and De Quervain's disease (tenosynovitis) M65.4 Cristo Jacobsen MD [address] [place] [id number] 11/12/2024 Cristo Jacobsen Mild intermittent as thma without complication J45.20 ; Atrial fibrillation I48.91 ; De Quervain's disease (radial styloid tenosynovitis) M65.4 and Acquired hypothyroidism E03.9 Cristo Jacobsen MD [address] [facility] [place], [place] [id number] 04/19/2024 Cristo Jacobsen Acquired hypothyroid ism E03.9 Assessments Encounter Date Diagnosis (ICD Code) Assessment Notes Treatment Notes Treatment Clinical Notes Section Notes 05/13/2024 Hypercholesterolemia (ICD-10 - E78.00) 11/05/2024 Acquired hypothyroid ism (ICD-10 - E03.9) 01/04/2025 Moderate persistent asthmatic bronchitis with acute exacerbation (ICD-10 - J45.41) patient verbalized understanding of medication and directions for use, chest x-ray order faxed to [facility] 01/13/2024 Lymphocytosis (ICD-1 0 - D72.820) 01/13/2024 Encounter for immunization (ICD-10 - Z23) 05/21/2024 Hypercholesterolemia (ICD-10 - E78.00) had run out of meds for 2 weeks. will continue current regiment 05/21/2024 Hyperlipidemia, unspecified hyperlipidemia type (ICD-10 - E78.5) 11/12/2024 Mild intermittent asthma without complication (ICD-10 - J45.20) well controlled 11/12/2024 Atrial fibrillation (ICD-10 - I48.91) may need to have ablation. seeing dr vivar 04/19/2024 Acquired hypothyroid ism (ICD-10 - E03.9) 11/05/2024 Vitamin D deficiency (ICD-10 - E55.9) 05/21/2024 Mild intermittent asthma without complication (ICD-10 - J45.20) has been doing well. 11/12/2024 De Quervain's diseas e (radial styloid tenosynovitis) (ICD-10 - M65.4) doesn't want to do anything 11/05/2024 Hypercholesterolemia (ICD-10 - E78.00) 05/21/2024 De Quervain's diseas e (tenosynovitis) (ICD-10 - M65.4) if it gets worse will send to hospital [facility] 11/12/2024 Acquired hypothyroid ism (ICD-10 - E03.9) 11/05/2024 Lymphocytosis (ICD-1 0 - D72.820) Plan Of Treatment Pending Test Test Name Order Date Electrocardiogram (EKG) 08/31/2015 XR CHEST 2 VIEW PA & LAT 02/28/2022 XR CHEST 2 VIEW PA & LAT 01/04/2025 BONE DENSITY DEXA 11/07/2020 Liver Panel 05/13/2024 ECG 30 day event monitor 07/20/2021 Next Appt Details Provider Name:Cristo Diaz ier, 05/12/2025 07:45:00 AM, [address] [place] [address], [address], [place], [place], [phone], Provider Name:Cristo Diaz ier, 05/16/2025 09:00:00 AM, [address] [place] [address], Suite [facility], [place], [place], [phone], Provider Name:Cristo Diaz ier, 11/10/2025 07:15:00 AM, [address] [place] [address], Suite [facility], [place], [place], [phone], Provider Name:Cristo Diaz ier, 11/17/2025 09:30:00 AM, [address] [place] [address], Suite [facility], [place], [place], [phone], Insurance Providers Payer Name Payer Address Payer Phone Subscriber Number Group Number Insured Name Patient Relationship to Insured Coverage Start Date Coverage End Date [employer] [address] [place] [address] [id number] Radha Bay Self - patient is the insured [employer] [address] [place], [place] [id number] Abdiel Bay Spouse - patient is the spouse of the insured Medical (General) History Medical History History ICD Code colonoscopy 2009 incomplete won't go for colonoscopy; colonoscopy done 01/19/[address] Kirby - repeat pending biopsy had cholesterol plaque CHADS score 2
--- OUTSIDE RECORDS SUMMARY | 2025-01-04 17:32 | XMS_ITS | Patient Health Record ---
Author Organization [facility] Address [address] [place] [address] Care Team Providers Care Broadband Technician Name Role Phone Ann-Marie MELO, Cristo Primary Care Provider Linn Adhikari [phone] Allergies Allergen (clinical drug ingredient) Drug/Non Drug [...] Status Risk Notes Problem Postmenopausal atrophic vaginitis (58661000) Postmenopausal atrophic vaginitis (N95.2) Active confirmed Vital Signs Temperature 97.5 degrees Fahrenheit 07/12/2024 Blood pressure diastolic 60 mm Hg 07/12/2024 Height 64 in 07/12/2024 Blood pressure systolic 100 mm Hg 07/12/2024 Weight 93 lbs 07/12/2024 BMI 15.96 kg/m2 07/12/2024 Encounters Encounter Location Date Provider Diagnosis [address] [place] [address] 07/12/2024 Linn Medina Encounter for gynecological examination [...] Provider Name:Linn ocampo, 07/14/2025 08:40:00 AM, [address] [facility], [address], [place], [address], Insurance Providers Payer Name Payer Address Payer Phone Subscriber Number Group Number Insured Name Patient Relationship to Insured Coverage Start Date Coverage End Date MEDICARE [address] [facility] [place] [id number] ARIANNA WARD Self - patient is the insured BCBS OF [facility] [address] [place] [address] [phone] [id number] ACOSTA WARD Spouse - patient is the [...]
== END 2025-01-04 14:39 | disposition home or self-care (01) ==
LOC: HO.XRAY 14:38
PROVIDERS: PCP Internal Medicine; Visit Provider Internal Medicine
DX: J45.41 Moderate persistent asthma with (acute) exacerbation (principal)
CPT/HCPCS: 71046

== ENCOUNTER → 2025-01-04 14:51 | Outpatient (BNV) | payer MEDICARE, BC, SELFPAY | PROVIDERS: PCP Internal Medicine; Visit Provider Radiology Diagnostic Radiology | DX: J43.9 Emphysema, unspecified (principal) | CPT/HCPCS: 71046 ==

== ENCOUNTER 2025-01-11 08:02 | Outpatient (REF) | payer MEDICARE, BC, SELFPAY ==
--- OUTSIDE RECORDS SUMMARY | 2023-11-06 03:15 | XMS_ITS ---
Author Organization Cristo Jacobsen MD Address [address] [place], [place] [id number] Care Team Providers Care Supervisor [employer] Name Role Phone Cristo Jacobsen Primary Care Provider Results Component Value Reference Range Notes Complete Blood Count Auto Di ff Reviewed date:11/06/2023 12:53:23 PM Interpretation: Performing Lab:[facility], [address] [place] [phone] Notes/Report: White Blood Count 7.7 4.8-10.8 X10*3/uL [...] NRBC Abs Auto 0.000 0.0-0.012 X10*3/uL Comprehensive [place]. Panel Fa st Reviewed date:11/06/2023 04:53:39 PM Interpretation: Performing Lab:[address] [phone] Notes/Report: Sodium 140 135-145 mmol/L Potassium 4.0 3.3-5.1 mmol/L Chloride 105 96-108 mmol/L Carbon Dioxide 28 22-29 mmol/L Anion Gap 11 12-20 Blood Urea Nitrogen 14 9-16 mg/dL Creatinine 0.99 0.5-1.4 mg/dL Estimated Glomerular Filt Rate 56 NOTE: For -Sammarinese individuals, multiply the result by 1.210. Chronic [...] Panel Reviewed date:11/06/2023 04:52:55 PM Interpretation: Performing Lab:[facility], [address] [place] [phone] Notes/Report: Triglycerides 94 <150 mg/dL Desirable Triglyceride: [...] Total Reviewed date:11/06/2023 04:53:13 PM Interpretation: Performing Lab:[address] [phone] Notes/Report: Vitamin D 25-OH Total 60.2 >30 ng/mL Health Based Reference Values* < 20 ng/mL Deficient 20-30 ng/mL Insufficient > 30 ng/mL Sufficient *Maikol TONY. N Engl J Med. 2007;357:266-280 Care [...] T4 Reviewed date:11/06/2023 04:53:04 PM Interpretation: Performing Lab:[facility], [address] [place] [phone] Notes/Report: TSH reflex Free T4 4.34 0.32-4.0 uIU/mL UA ClnCatch+Micro w/rflx Cul t Reviewed date:11/06/2023 12:35:43 PM Interpretation: Performing Lab:[facility], [address] [place] [phone] Notes/Report: Urine, Clean Catch Color Urine Yellow Appearance Urine Clear PH 6.0 5.0-9.0 Glucose Urine UA Negative Negative mg/dL Urine Blood Negative Negative Specific [place] - Urine 1.010 1.005-1.025 Urine Protein Negative [...] Location Date Provider Diagnosis Cristo Jacobsen MD [address] [place] [phone] 11/06/2023 Cristo Jacobsen Acquired hypothyroid ism E03.9 ; Vitamin D deficiency E55.9 and Hypercholesterolemia E78.00 Assessments Encounter Date Diagnosis (ICD Code) Assessment Notes Treatment Notes Treatment Clinical Notes Section Notes 11/06/2023 Acquired hypothyroid ism (ICD-10 - E03.9) 11/06/2023 Vitamin D deficiency (ICD-10 - E55.9) 11/06/2023 Hypercholesterolemia (ICD-10 - E78.00) Plan Of Treatment Next Appt Details Provider Name:Cristo mensah, 05/12/2025 07:45:00 AM, [address] [place] [address], [phone], Provider Name:Cristo mensah, 05/16/2025 09:00:00 AM, [address] [place] [address], [phone], Provider Name:Cristo mensah, 11/10/2025 07:15:00 AM, [address] [place] [address], [phone], Provider Name:Cristo loyar, 11/17/2025 09:30:00 AM, [address] [place] [address], [phone], Progress Notes * Radha WARD ADOB: (69 yo F)Acc No.[id number]:11/06/2023 Progress Note Patient: Jose Radha BELLA Provider: Makeda Jacobsen MD :1955 A ge:68 Y S ex:Female Date:11/06/2023 Address:[facility] [facility] [facility], [id number] Subjective: * Chief Complaints: * 1 . [...] - 11/06/2023 07:15 AM) L AB: Comprehensive [place]. Panel Fast (Collection Date & Time - [...] - 11/06/2023 07:15 AM) L AB: Comprehensive [place]. Panel Fast (Collection Date & Time - [...] 11/06/2023 Generated for Sushila brambila/Raghav/Mitesh on: 1 08:08 AM EDT
--- OUTSIDE RECORDS SUMMARY | 2023-11-13 09:00 | XMS_ITS ---
Author Organization Cristo Jacobsen MD Address [address] [place], [place] [phone] Care Team Providers Care Prototype Deicer Assembler Name Role Phone Cristo Jacobsen Primary Care Provider [phone] Allergies No Known Allergies REASON FOR VISIT [...] Problem Status W/U Status Risk Notes Problem [id number] Lymphocytosis (D72.820) Active confirmed Vital Signs Blood pressure systolic 90 mm Hg 11/13/19 24 Blood pressure diastolic 56 mm Hg 024 Height 64 in 11/13/2023 Weight 91 lbs 11/13/2023 BMI 15.62 kg/m2 11/13/2023 weight is down 1 pound since 05-16-23 Encounters Encounter Location Date Provider Diagnosis Cristo Jacobsen MD [address] [place] [address] [address] [place], [place] [phone] 11/13/2023 Cristo Jacobsen Lymphocytosis D72.82 0 ; [...] biopsy results/REQUE ST FAXED TO HIM @ [facility] 11/13/2023 Mild intermittent as thma without complication [...] need biopsy results/REQUEST FAXED TO HIM @ [facility] Mild intermittent asthma without complic ation not [...] Reason: Provider Name:Cristo mensah, 05/12/2025 07:45:00 AM, [address] [place] [address], [address], [phone], Provider Name:Cristo mensah, 05/16/2025 09:00:00 AM, [address] [place] [address], [phone], Provider Name:Cristo mensah, 11/10/2025 07:15:00 AM, [address] [place] [address], [address], [phone], Provider Name:Cristo mensah, 11/17/2025 09:30:00 AM, [address] [place] [address], [phone], Progress Notes * Radha WARD ADOB: (68 yo F)Acc No.[id number]:11/13/2023 Patient: Radha Courtney Provider: Makeda Jacobsen MD :1955 A ge:68 Y S ex:Female Date:11/13/2023 [facility] Subjective: * Chief Complaints: * A NNUAL [...] * Family History: F ather: 80 yrs, [place]. M other: 81 yrs, cervical cancer. 3 [...] mg/dL Urine Blood Negative Negative - Specific [place] - Urine 1.010 1.005-1.025 - Urine Protein [...] 1.19 0.71-1.85 - ng/ dL L ab:Comprehensive [place]. Panel Fast (Order Date - 11/06/2023) (Collection [...] bilaterally mil wheezes. BREASTS: d one by wooden boat builder. ABDOMEN: s oft, nontender, nondistended, bowel sounds present, normal, no organomegaly , no masses palpable. RECTAL EXAM: d one by wooden boat builder. FEMALE GENITOURINARY: d one by wooden boat builder. EXTREMITIES: n o clubbing, cyanosis, or edema. [...] need biopsy results/REQUEST FAXED TO HIM @ [facility]. 3. M ild intermittent asthma without complication [...] 0 11/13/2023 Generated for Sushila brambila/Raghav/Mitesh on: 1 08:08 AM EDT History and Physical Notes * HPI (History [...] cyanosi s, or edema BREASTS: done by wooden boat builder RECTAL EXAM: done by wooden boat builder FEMALE GENITOURINARY: done by wooden boat builder ORAL CAVITY: mucosa moist
--- OUTSIDE RECORDS SUMMARY | 2024-01-13 03:45 | XMS_ITS ---
Author Organization Cristo Jacobsen MD Address [address] [place], [place] [phone] Care Team Providers Care Arm Maker Name Role Phone Cristo Jacobsen Primary Care Provider [phone] Results Component Value Reference Range Notes Complete Blood Count Auto Di ff Reviewed date:01/13/2024 08:42:00 PM Interpretation: Performing Lab:[facility], [address] [place] [phone] Notes/Report: White Blood Count 6.4 4.8-10.8 X10*3/uL [...] Location Date Provider Diagnosis Cristo Jacobsen MD [address] [place] [phone] 01/13/2024 Cristo Jacobsen Lymphocytosis D72.82 0 and Encounter for immunization Z23 Assessments Encounter Date Diagnosis (ICD Code) Assessment Notes Treatment Notes Treatment Clinical Notes Section Notes 01/13/2024 Lymphocytosis (ICD-10 - D72.820) 01/13/2024 Encounter for immunization (ICD-10 - Z23) Plan Of Treatment Next Appt Details Provider Name:Cristo mensah, 05/12/2025 07:45:00 AM, [address] [place] [address], [address], [phone], Provider Name:Cristo mensah, 05/16/2025 09:00:00 AM, [address] [place] [address], [phone], Provider Name:Cristo mensah, 11/10/2025 07:15:00 AM, [address] [place] [address], [phone], Provider Name:Cristo mensah, 11/17/2025 09:30:00 AM, [address] [place] [address], [phone], Progress Notes * Radha WARD ADOB: 7 (68 yo F)Acc No.[id number]:01/13/2024 Progress Note Patient: Radha Courtney Provider: Makeda Jacobsen MD :1955 A ge:68 Y S ex:Female Date:01/13/2024 [facility] Subjective: * Chief Complaints: * C BC [...] Deltoid * Procedure Codes: 3 6415 VENIPUNCT, ROUTINE*99665 FLU VACCINE NO PRESERV 3 & >G0008 ADMN FLU VAC NO FEE SCHED SAME DAY * * Sign off status: Completed true * Provider: Makeda Jacobsen MD Date: Generated for Sushila brambila/Raghav/Coreysmitting on: 08:07 AM EDT
--- OUTSIDE RECORDS SUMMARY | 2024-04-19 08:35 | XMS_ITS ---
Author Organization Cristo Jacobsen MD Address [address] [place] [phone] Care Team Providers Care Market Specialist Name Role Phone Cristo Jacobsen Primary Care Provider [phone] Medications Medication SIG (Take, Route, Frequency, Duration) Notes Start Date End Date Status Levothyroxine Sodium 50 MCG one tablet O rally Once a day for 90 days Active Encounters Encounter Location Date Provider Diagnosis Cristo Jacobsen MD [address] [place] [phone] 04/19/2024 Cristo Jacobsen Acquired hypothyroidism E03.9 Assessments Encounter Date Diagnosis (ICD Code) Assessment Notes Treatment Notes Treatment Clinical Notes Section Notes 04/19/2024 Acquired hypothyroidism (ICD-10 - E03.9) Plan Of Treatment Medication Medication Name Sig Start Date Stop Date Notes Levothyroxine Sodium 50 MCG one tablet O rally Once a day for 90 days Next Appt Details Provider Name:Cristo mensah, 05/12/2025 07:45:00 AM, [address] [place] [address], [address], [phone], Provider Name:Cristo mensah, 05/16/2025 09:00:00 AM, [address] [place] [address], [phone], Provider Name:Cristo mensah, 11/10/2025 07:15:00 AM, [address] [place] [address], [phone], Provider Name:Cristo mensah, 11/17/2025 09:30:00 AM, [address], [address], [place], [place], [phone], Progress Notes * Radha WARD ADOB: (68 yo F)Acc No.[id number]:04/19/2024 Patient: Radha ACHARYA :1955 A ge:68 Y S ex:Female [facility] [place] [address] * Refills Refill Levothyroxine Sodium Tablet, 50 MCG, Orally, 90, one tablet, Once a day, 90 days, Refills=3 * true * Date: Generated for Sushila brambila/Raghav/Estelleitting on: 08:07 AM EDT
--- OUTSIDE RECORDS SUMMARY | 2024-05-13 03:30 | XMS_ITS ---
Author Organization Cristo Jacobsen MD Address [address] [place] [phone] Care Team Providers Care Nurse Licensed Practical Name Role Phone Cristo Jacobsen Primary Care Provider Results Component Value Reference Range Notes Lipid Panel with Reflex Reviewed date:05/13/2024 12:41:29 PM Interpretation: Performing Lab:[facility], [address] [place] [phone] Notes/Report: Triglycerides 75 <150 mg/dL Desirable Triglyceride: [...] Date Provider Diagnosis Cristo Jacobsen MD [address] [place] [phone] 05/13/2024 Cristo Jacobsen Hypercholesterolemia E78.00 Assessments Encounter Date Diagnosis (ICD Code) Assessment Notes Treatment Notes Treatment Clinical Notes Section Notes 05/13/2024 Hypercholesterolemia (ICD-10 - E78.00) Plan Of Treatment Pending Test Test Name Order Date Liver Panel 05/13/2024 Next Appt Details Provider Name:Cristo Diaz ier, 05/12/2025 07:45:00 AM, [address], [address], [place], [place], [phone], Provider Name:Cristo Diaz ier, 05/16/2025 09:00:00 AM, [address], [address], [place], [place], [phone], Provider Name:Cristo Diaz ier, 11/10/2025 07:15:00 AM, [address] [place] [address] Drive, Suite [facility], [place], [place], [phone], Provider Name:Cristo Diaz ier, 11/17/2025 09:30:00 AM, [address] [place] [address], Suite [facility], [place], [place], [phone], Progress Notes * Radha WARD ADOB: (69 yo F)Acc No.[id number]:05/13/2024 Progress Note Patient: Radha ACHARYA A Provider: Makeda Jacobsen MD :1955 A ge:68 Y S ex:Female Date:05/13/2024 Address:[address] [place], [place] [phone] Subjective: * Chief Complaints: * 1 . [...] 05/13/2024 Generated for Dianai kosta/Raghav/eTransmitting on: 1 08:07 AM EDT
--- OUTSIDE RECORDS SUMMARY | 2024-05-21 06:00 | XMS_ITS ---
Author Organization Cristo Jacobsen MD Address [address] [place] [address] [phone] Care Team Providers Care Assistant Hall Director Name Role Phone Cristo Jacobsen Primary Care [...] Cristo Jacobsen MD [address] [place] [address] [phone] 05/21/2024 Cristo Jacobsen Hypercholesterolemia E78.00 ; Hyperlipidemia, [...] if it gets worse will send to [facility] Plan Of Treatment Medication Medication Name [...] if it gets worse will send to [facility] Next Appt Details Provider Name:Cristo mensah, 05/12/2025 07:45:00 AM, [address], [address] [place] [address], [phone], Provider Name:Cristo mensah, 05/16/2025 09:00:00 AM, [address], [address] [place] [address], [phone], Provider Name:Cristo mnesah, 11/10/2025 07:15:00 AM, [address] [place] [address] Drive, [address] [place] [address], [phone], Provider Name:Cristo mensah, 11/17/2025 09:30:00 AM, [address] [place] [address], [address] [place] [address], [phone], Progress Notes * Radha WARD ADOB: 7 (68 yo F)Acc No.[id number]:05/21/2024 Progress Notes Patient: Radha ACHARYA Provider: Makeda Jacobsen MD :1955 A ge:68 Y S ex:Female Date:05/21/2024 [facility] Subjective: * Chief Complaints: * 6 MO [...] 05/21/2024 Generated for Sushila brambila/Raghav/Estelleitting on: 1 08:06 AM EDT History and Physical Notes * [...]
--- OUTSIDE RECORDS SUMMARY | 2024-11-05 03:30 | XMS_ITS ---
Author Organization Cristo Jacobsen MD Address [address] [place], [place] [phone] Care Team Providers Care Journeyman Molder Name Role Phone Cristo Jacobsen Primary Care Provider Results Component Value Reference Range Notes Complete Blood Count Auto Di ff Reviewed date:11/05/2024 04:32:55 PM Interpretation: Performing Lab:[facility], [address] [place] [phone] Notes/Report: White Blood Count 7.9 4.8-10.8 X10*3/uL [...] NRBC Abs Auto 0.000 0.0-0.012 X10*3/uL Comprehensive [place]. Panel Fa st Reviewed date:11/05/2024 12:40:25 PM Interpretation: Performing Lab:[facility], [address] [place] [phone] Notes/Report: Sodium 138 135-145 mmol/L Potassium 3.9 [...] Panel Reviewed date:11/05/2024 12:41:10 PM Interpretation: Performing Lab:[address] [phone] Notes/Report: Triglycerides 94 <150 mg/dL Desirable Triglyceride: [...] Total Reviewed date:11/05/2024 04:28:34 PM Interpretation: Performing Lab:[address] [phone] Notes/Report: Vitamin D 25-OH Total 126.0 >30 [...] t Reviewed date:11/05/2024 04:33:19 PM Interpretation: Performing Lab:[facility], [address] [place] [phone] Notes/Report: Urine, Clean Catch Color Urine Yellow Appearance Urine Clear PH 6.0 5.0-9.0 Glucose Urine UA Negative Negative mg/dL Urine Blood Negative Negative Specific [place] - Urine 1.020 1.005-1.025 Urine Protein Negative [...] Location Date Provider Diagnosis Cristo Jacobsen MD [address] [place] [phone] 11/05/2024 Cristo Jacobsen Acquired hypothyroid ism E03.9 [...] Details Provider Name:Cristo mensah, 05/12/2025 07:45:00 AM, [address] [place] [address], [phone], Provider Name:Cristo mensah, 05/16/2025 09:00:00 AM, [address] [place] [address], [phone], Provider Name:Cristo mensah, 11/10/2025 07:15:00 AM, [address] [place] [address], [phone], Provider Name:Cristo mensah, 11/17/2025 09:30:00 AM, [address] [place] [address], [phone], Progress Notes * Radha WARD ADOB: [birth year] (69 yo F)Acc No.[id number]:11/05/2024 Progress Note Patient: Radha ACHARYA Provider: Makeda Jacobsen MD :1955 A ge:69 Y S ex:Female Date:11/05/2024 Address:[place], [id number] Subjective: * Chief Complaints: * 1 . [...] - 11/05/2024 07:30 AM) L AB: Comprehensive [place]. Panel Fast (Collection Date & Time - [...] - 11/05/2024 07:30 AM) L AB: Comprehensive [place]. Panel Fast (Collection Date & Time - [...] - 11/05/2024 07:30 AM) L AB: Comprehensive [place]. Panel Fast (Collection Date & Time - [...] 11/05/2024 Generated for Sushila brambila/Raghav/Estelleitting on: 1 08:07 AM EDT
--- OUTSIDE RECORDS SUMMARY | 2024-11-12 05:30 | XMS_ITS ---
Author Organization Cristo Jacobsen MD Address [address] [place], [place] [id number] Care Team Providers Care Paint Factory Worker Name Role Phone Cristo Jacobsen Primary Care [...] Location Date Provider Diagnosis Cristo Jacobsen MD [address] [place] [address] Drive [address] [place], [place] [phone] 11/12/2024 Cristo Jacobsen Mild intermittent asthma without [...] Reason: Provider Name:Cristo mensah, 05/12/2025 07:45:00 AM, [address] [place] [address] Drive, [address], [place], [place], [phone], Provider Name:Cristo mensah, 05/16/2025 09:00:00 AM, [address] [place] [address], [address], [place], [place], [phone], Provider Name:Cristo mensah, 11/10/2025 07:15:00 AM, [address], [address], [place], [place], [phone], Provider Name:Cristo Diaz rodrick, 11/17/2025 09:30:00 AM, [address], [address], [place], [place], [phone], Progress Notes * Radha WARD ADOB: (69 yo F)Acc No.[id number]:11/12/2024 Patient: Radha ACHARYA Provider: Makeda Jacobsen MD :1955 A ge:69 Y S ex:Female Date:11/12/2024 [id number] Subjective: * Chief Complaints: * R eview [...] * Family History: F ather: 80 yrs, [place]. M other: 81 yrs, cervical cancer. 3 [...] Cholesterol 52 >40 - mg/dL L ab:Comprehensive [place]. Panel Fast (Order Date - 11/05/2024) (Collection [...] mg/dL Urine Blood Negative Negative - Specific [place] - Urine 1.020 1.005-1.025 - Urine Protein [...] to auscultation bilaterally. BREASTS: d one by middleware administrator. ABDOMEN: s oft, nontender, nondistended, bowel sounds present, normal, no organomegaly , no masses palpable. RECTAL EXAM: d one by middleware administrator. FEMALE GENITOURINARY: d one by middleware administrator. EXTREMITIES: n o clubbing, cyanosis, or edema. [...] 11/12/2024 Generated for Sushila brambila/Raghav/Mitesh on: 1 08:08 [...] cyanosi s, or edema BREASTS: done by middleware administrator RECTAL EXAM: done by middleware administrator FEMALE GENITOURINARY: done by middleware administrator ORAL CAVITY: mucosa moist
--- OUTSIDE RECORDS SUMMARY | 2025-01-04 07:15 | XMS_ITS ---
Author Organization Cristo Jacobsen MD Address [address] [place] [phone] Care Team Providers Care Sticker Operator Name Role Phone Cristo Jacobsen Primary Care Provider Allergies No Known Allergies REASON FOR VISIT coughing fatigue ? fractured rib x 3 weeks, Video [phone] Medications Medication SIG (Take, Route, Frequency, Duration) [...] Date Provider Diagnosis Cristo Jacobsen MD [address] [place] [address] [place] [phone] 01/04/2025 Cristo Jacobsen Moderate persistent asthmatic bronchitis with acute exacerbation J45.41 Assessments Encounter Date Diagnosis (ICD Code) Assessment Notes Treatment Notes Treatment Clinical Notes Section Notes 01/04/2025 Moderate persistent asthmatic bronchitis with acute exacerbation (ICD-10 - J45.41) patient verbalized understanding of medication and directions for use, chest x-ray order faxed to [facility] Plan Of Treatment Medication Medication Name Sig [...] for use, chest x-ray order faxed to [facility] Pending Test Test Name Order Date XR CHEST 2 VIEW PA & LAT 01/04/2025 Next Appt Details Provider Name:Cristo mensah, 05/12/2025 07:45:00 AM, [address] [place] [address], [address] [place] [address], [phone], Provider Name:Cristo mensah, 05/16/2025 09:00:00 AM, [address] [place] [address], [address], [phone], Provider Name:Cristo mensah, 11/10/2025 07:15:00 AM, [address] [place] [address], [address], [phone], Provider Name:Cristo mensah, 11/17/2025 09:30:00 AM, [address], [address], [place], [place], [phone], Progress Notes * Radha WARD ADOB: 7 (69 yo F)Acc No.[id number]:01/04/2025 Patient: Radha ACHARYA Provider: Makeda Jacobsen MD :1955 A ge:69 Y S ex:Female Date:01/04/2025 Address:Anshul Alvarez [facility], [id number] Subjective: * Chief Complaints: * C oughing fatigue ? fractured rib x 3 weeksVideo [phone] * HPI: S ymptom(s): Telehealth L ocation [...] Date: Generated for Sushila brambila/Raghav/eTransmitting on: 1 08:08 AM EDT History and Physical Notes * HPI (History of Present Illness) Category Sub-Category Detail Notes Category Not es Symptom(s) Telehealth Location of [facility] rendering services:: [address], [address] [...]
--- OUTSIDE RECORDS SUMMARY | 2025-01-06 08:52 | XMS_ITS ---
Author Organization Cristo Jacobsen MD Address [address] [place] [phone] Care Team Providers Care Engagement Director Name Role Phone Cristo Jacobsen Primary Care Provider [phone] REASON FOR VISIT repeat chest x-ray in 1 week from 01-04-25 Encounters Encounter Location Date Provider Diagnosis Cristo Jacobsen MD [address] [place] [address] [place] [phone] 01/06/2025 Cristo Jacobsen Moderate persistent asthmatic bronchitis with acute exacerbation J45.41 Assessments Encounter Date Diagnosis (ICD Code) Assessment Notes Treatment Notes Treatment Clinical Notes Section Notes 01/06/2025 Moderate persistent asthmatic bronchitis with acute exacerbation (ICD-10 - J45.41) Plan Of Treatment Pending Test Test Name Order Date XR CHEST 2 VIEW PA & LAT 01/06/2025 Next Appt Details Provider Name:Cristo mensah, 05/12/2025 07:45:00 AM, [address] [place] [address], [address], [phone], Provider Name:Cristo mensah, 05/16/2025 09:00:00 AM, [address] [place] [address], [address], [phone], Provider Name:Cristo mensah, 11/10/2025 07:15:00 AM, [address] [place] [address], [address], [phone], Provider Name:Cristo mensah, 11/17/2025 09:30:00 AM, [address], [address], [place], [place], [phone], Progress Notes * SYLVIARadha FARIAS ADOB: (69 yo F)Acc No.[id number]:01/06/2025 Patient: Radha ACHARYA :1955 A ge:69 Y S ex:Female Address:[address] [place] [address] [place] [address] Subjective: * Chief Complaints: * R epeat chest x-ray in 1 week from 01-04-25 * Medical History: * Surgical History: * Hospitalization/Major Diagno stic Procedure: * Medications: Objective: * Vitals: * Physical Examination: Assessment: * Assessment: 1. M oderate persistent asthmatic bronchitis with acute exacerbation - J45.41 Plan: * Treatment: * Procedure Codes: * true * Date: Generated for Sushila brambila/Raghav/Coreysmitting on: 08:07 AM EDT
--- NOTE | ~2025-01-11 | XR_ITS ---
EXAMINATION: XR CHEST CLINICAL INFORMATION: MODERATE PERSISTENT ASTHMATIC BRONCHITIS W/ACUTE EXACERBATION COMPARISON: January 04, 2025 TECHNIQUE: PA and lateral views. FINDINGS: Hyperinflated lungs. Pulmonary reticular pattern. Apical lung scarring. No consolidation, pleural effusion or pneumothorax. Cardiomediastinal silhouette size is normal. Calcified plaque aortic arch. S-shaped curvature of the thoracolumbar spine. Multilevel thoracic spondylosis, mild. Osteopenia versus osteoporosis. XR/XR chest 2V IMPRESSION: COPD emphysematous type changes without acute airspace disease. Electronically signed by: Dayton Encinas MD 01/11/2025 08:20 AM EDT
--- OUTSIDE RECORDS SUMMARY | 2025-01-11 08:07 | XMS_ITS | Patient Health Record ---
Author Organization [facility] Address [address] [place] [address] Care Team Providers Care Ladies' Locker Room Attendant Name Role Phone Cristo Jacobsen MD Primary Care Provider Saúl Garcia Jr [phone] Allergies Allergen (clinical drug ingredient) Drug/Non Drug [...] Status Risk Notes Problem Colon cancer screening (486988720) Colon cancer screening (Z12.11) Active confirmed Problem Pre-procedure evaluation check (458432819) Encounter for other preprocedural examination (Z01.818) Active confirmed Plan Of Treatment Future Test Test Name Order Date COLONOSCOPY 12/20/2019 Next Appt Details Provider Name:Saúl Gabe rae Jr, 04/27/2025 11:00:00 AM, [address] [facility], [address], [place], [address], Insurance Providers Payer Name Payer Address Payer Phone Subscriber Number Group Number Insured Name Patient Relationship to Insured Coverage Start Date Coverage End Date [facility] [address] [place], [place] [id number] ARIANNA WARD Self - patient is the insured Medical (General) History Medical History History ICD Code Hypothyroidism hyperlipidemia asthma Surgical History Surgery Date(Month/Year)
--- OUTSIDE RECORDS SUMMARY | 2025-01-11 08:09 | XMS_ITS | Patient Health Record ---
Author Organization [facility] Address [address] [place] [address] Care Team Providers Care Preventive Maintenance Coordinator Name Role Phone Ann-Marie MELO, Cristo Primary Care Provider Lnin Adhikari [phone] Allergies Allergen (clinical drug ingredient) Drug/Non Drug [...] Status Risk Notes Problem Postmenopausal atrophic vaginitis (83282929) Postmenopausal atrophic vaginitis (N95.2) Active confirmed Vital Signs Temperature 97.5 degrees Fahrenheit 07/12/2024 Blood pressure diastolic 60 mm Hg 07/12/2024 Height 64 in 07/12/2024 Blood pressure systolic 100 mm Hg 07/12/2024 Weight 93 lbs 07/12/2024 BMI 15.96 kg/m2 07/12/2024 Encounters Encounter Location Date Provider Diagnosis [address] [place] [address] 07/12/2024 Linn Medina Encounter for gynecological examination [...] Provider Name:Linn ocampo, 07/14/2025 08:40:00 AM, [address] [facility], [address], [place], [address], Insurance Providers Payer Name Payer Address Payer Phone Subscriber Number Group Number Insured Name Patient Relationship to Insured Coverage Start Date Coverage End Date MEDICARE [address] [facility] [place] [id number] ARIANNA WARD Self - patient is the insured BCBS OF [facility] [address] [place] [address] [id number] ACOSTA WARD Spouse - patient is the [...]
--- OUTSIDE RECORDS SUMMARY | 2025-01-11 08:09 | XMS_ITS | Patient Health Record ---
Author Organization Cristo Jacobsen MD Address [address] [place], [place] [phone] Care Team Providers Care Auto Body Man Name Role Phone Cristo Jacobsen Primary Care Provider [phone] Allergies No Known Allergies Results Component Value Reference Range Notes Lipid Panel with Reflex Reviewed date:05/13/2024 12:41:29 PM Interpretation: Performing Lab:[facility], [address] [place] [phone] Notes/Report: Triglycerides 75 <150 mg/dL Desirable Triglyceride: [...] ff Reviewed date:11/05/2024 04:32:55 PM Interpretation: Performing Lab:[facility], [address] [place] [phone] Notes/Report: White Blood Count 7.9 4.8-10.8 X10*3/uL [...] NRBC Abs Auto 0.000 0.0-0.012 X10*3/uL Comprehensive [place]. Panel Fa st Reviewed date:11/05/2024 12:40:25 PM Interpretation: Performing Lab:[facility], [address] [place] [phone] Notes/Report: Sodium 138 135-145 mmol/L Potassium 3.9 [...] Panel Reviewed date:11/05/2024 12:41:10 PM Interpretation: Performing Lab:[facility], [address] [place] [phone] Notes/Report: Triglycerides 94 <150 mg/dL Desirable Triglyceride: [...] Total Reviewed date:11/05/2024 04:28:34 PM Interpretation: Performing Lab:[facility], [address] [place] [phone] Notes/Report: Vitamin D 25-OH Total 126.0 >30 [...] t Reviewed date:11/05/2024 04:33:19 PM Interpretation: Performing Lab:[facility], [address] [place] [phone] Notes/Report: Urine, Clean Catch Color Urine Yellow Appearance Urine Clear PH 6.0 5.0-9.0 Glucose Urine UA Negative Negative mg/dL Urine Blood Negative Negative Specific [place] - Urine 1.020 1.005-1.025 Urine Protein Negative [...] ff Reviewed date:01/13/2024 08:42:00 PM Interpretation: Performing Lab:[facility], [address] [place] [phone] Notes/Report: White Blood Count 6.4 4.8-10.8 X10*3/uL [...] Gold Reviewed date:05/13/2024 12:40:41 PM Interpretation: Performing Lab:[address] [phone] Notes/Report: Hold Gold See Note Specimen held untested for 24 hours; Call to request Chemistry testing. Complete Blood Count no Diff Reviewed date:08/11/2024 03:55:35 PM Interpretation: Performing Lab:[address] [phone] Notes/Report: White Blood Count 7.1 4.8-10.8 X10*3/uL [...] Panel Reviewed date:08/11/2024 03:58:27 PM Interpretation: Performing Lab:[facility], [address] [place] [phone] Notes/Report: Sodium 138 135-145 mmol/L Potassium 4.2 [...] Magnesium Reviewed date:08/12/2024 12:35:46 PM Interpretation: Performing Lab:[facility], [address] [place] [phone] Notes/Report: Magnesium 2.0 1.6-2.6 mg/dL TSH reflex Free T4 Reviewed date:08/11/2024 03:54:04 PM Interpretation: Performing Lab:[facility], [address] [place] [phone] Notes/Report: TSH reflex Free T4 2.97 0.32-4.0 uIU/mL Hold Gold Reviewed date:11/05/2024 12:40:00 PM Interpretation: Performing Lab:[facility], [address] [place] [phone] Notes/Report: Hold Gold See Note Specimen held untested for 24 hours; Call to request Chemistry testing. XR chest 2V Reviewed date:01/04/2025 05:01:37 PM Interpretation: Performing Lab: Notes/Report: [address] [address] XRay Report Signed Patient: Radha Bay MR#: [id number] 92 : 1955 Acct:[id number] Age/Sex: 69 / F ADM Date: 01/04/25 Loc: [facility] Attending Dr: Cristo Jacobsen MD Ordering Physician: Cristo Jacobsen MD Date of Service: 01/04/25 Procedure(s): XR chest 2V Accession Number(s): [id number] cc: Cristo Jacobsen MD Reason for Exam: [...] 01/04/25 1508 DD/ 1451 TD/TT: 01/04/25 1453 Precipitator Supervisor: [place] [address] XRay Report Signed Patient: Becky Bay MR#: [id number] 92 : 1955 Acct:[id number] Age/Sex: 69 / F ADM Date: 01/04/25 Loc: [facility] Attending Dr: Cristo Jacobsen MD Ordering Physician: Cristo Jacobsen MD Date of Service: 01/04/25 Procedure(s): XR isabelle st 2V Accession Number(s): [id number] cc: Cristo Jacobsen MD Reason for Exam: [...] 01/04/25 1508 DD/ 1451 TD/TT: 01/04/25 1453 Precipitator Supervisor: Reason For Referral No Information Medications Medication [...] 10/05/2012 Administered [facility] Quadrivalent Unknown 12/06/2019 Administered [facility] Covid Vaccine Unknown 03/09/2020 Administered [facility] Covid Vaccine Unknown 03/30/2020 Administered [facility] Prevnar 13 IM Intramuscular 05/19/2020 Administered SARS-COV-2 [...] W/U Status Risk Notes Problem Pure hypercholesterolemia (758185283) Pure hypercholesterolemia (E78.0) Active confirmed Problem Atrial fibrillation (74982810) Atrial fibrillation (I48.91) Active confirmed Problem 86641449 Lymphocytosis (D72.820) Active confirmed Problem 15394280 Vitamin D defici ency (E55.9) Active confirmed Problem 330655937 Acquired hypothyroidism (E03.9) Active confirmed Problem 580083973 Mild intermitten t asthma without complication (J45.20) Active confirmed Problem Irregular heart beat (163602384) Irregular heart beat (I49.9) Active confirmed Problem 16967875 Hypercholesterol emia (E78.00) Active confirmed Problem 41754853 Hyperlipidemia, unspecified hyperlipidemia type (E78.5) Active confirmed Problem 728849277 Osteopenia of sp ine (M85.88) Active confirmed Problem Mitral valve disorde r (14130970) Moderate mitral regurgitation (I34.0) Active confirmed Problem 426624523084813 Moderate persist ent asthmatic bronchitis with acute [...] Cristo Jacobsen MD [address] [place] [id number] 05/13/2024 Cristo Jacobsen Hypercholesterolemia E78.00 Cristo Jacobsen MD [address] [place] [id number] 11/05/2024 Cristo Jacobsen Acquired hypothyroid ism E03.9 ; Vitamin D deficiency E55.9 ; Hypercholesterolemia E78.00 and Lymphocytosis D72.820 Cristo Jacobsen MD [address] [place] [id number] 01/13/2024 Cristo Jacobsen Lymphocytosis D72.82 0 and Encounter for immunization Z23 Cristo Jacobsen MD [address] [place] [id number] 05/21/2024 Cristo Jacobsen Hypercholesterolemia E78.00 ; Hyperlipidemia, unspecified hyperlipidemia type E78.5 ; Mild intermittent asthma without complication J45.20 and De Quervain's disease (tenosynovitis) M65.4 Cristo Jacobsen MD [address] [place] [id number] 11/12/2024 Cristo Jacobsen Mild intermittent as thma without complication J45.20 ; Atrial fibrillation I48.91 ; De Quervain's disease (radial styloid tenosynovitis) M65.4 and Acquired hypothyroidism E03.9 Cristo Jacobsen MD [address] [place] [id number] 01/04/2025 Cristo Jacobsen Moderate persistent asthmatic bronchitis with acute exacerbation J45.41 Cristo Jacobsen MD [address] [place], [place] [id number] 04/19/2024 Cristo Jacobsen Acquired hypothyroid ism E03.9 Cristo Jacobsen MD [address] [facility] [address] [place] [id number] 01/06/2025 Cristo Jacobsen Moderate persistent asthmatic bronchitis with acute exacerbation J45.41 Assessments Encounter Date Diagnosis (ICD Code) Assessment Notes Treatment Notes Treatment Clinical Notes Section Notes 05/13/2024 Hypercholesterolemia (ICD-10 - E78.00) 11/05/2024 Acquired hypothyroid ism (ICD-10 - E03.9) 01/13/2024 Lymphocytosis (ICD-1 0 - D72.820) 01/13/2024 Encounter for immunization (ICD-10 - Z23) 05/21/2024 Hypercholesterolemia (ICD-10 - E78.00) had run out of meds for 2 weeks. will continue current regiment 05/21/2024 Hyperlipidemia, unspecified hyperlipidemia type (ICD-10 - E78.5) 11/12/2024 Mild intermittent asthma without complication (ICD-10 - J45.20) well controlled 11/12/2024 Atrial fibrillation (ICD-10 - I48.91) may need to have ablation. seeing dr vivar 01/04/2025 Moderate persistent asthmatic bronchitis with acute exacerbation (ICD-10 - J45.41) patient verbalized understanding of medication and directions for use, chest x-ray order faxed to [facility] [place] [place] 04/19/2024 Acquired hypothyroid ism (ICD-10 - E03.9) 01/06/2025 Moderate persistent asthmatic bronchitis with acute exacerbation (ICD-10 - J45.41) 11/05/2024 Vitamin D deficiency (ICD-10 - E55.9) 05/21/2024 Mild intermittent asthma without complication (ICD-10 - J45.20) has been doing well. 11/12/2024 De Quervain's diseas e (radial styloid tenosynovitis) (ICD-10 - M65.4) doesn't want to do anything 11/05/2024 Hypercholesterolemia (ICD-10 - E78.00) 05/21/2024 De Quervain's diseas e (tenosynovitis) (ICD-10 - M65.4) if it gets worse will send to [facility] 11/12/2024 Acquired hypothyroid ism (ICD-10 - E03.9) 11/05/2024 Lymphocytosis (ICD-1 0 - D72.820) Plan Of Treatment Pending Test Test Name Order Date Electrocardiogram (EKG) 08/31/2015 XR CHEST 2 VIEW PA & LAT 02/28/2022 XR CHEST 2 VIEW PA & LAT 01/04/2025 XR CHEST 2 VIEW PA & LAT 01/06/2025 BONE DENSITY DEXA 11/07/2020 Liver Panel 05/13/2024 ECG 30 day event monitor 07/20/2021 Next Appt Details Provider Name:Cristodanny Diaz ier, 05/12/2025 07:45:00 AM, [address] [place] [address], [address], [phone], Provider Name:Cristo Diaz ier, 05/16/2025 09:00:00 AM, [address] [place] [address], [address], [phone], Provider Name:Cristodanny Diaz ier, 11/10/2025 07:15:00 AM, [address] [place] [address], [address], [phone], Provider Name:Cristo Radha Natejoe ier, 11/17/2025 09:30:00 AM, [address] [place] [address], [address], [phone], Insurance Providers Payer Name Payer Address Payer Phone Subscriber Number Group Number Insured Name Patient Relationship to Insured Coverage Start Date Coverage End Date MEDICARE [facility] [address] [place] [address] [id number] Radha Bay Self - patient is the insured [employer] [address] [place], [place] [id number] Abdiel Bay Spouse - patient is the spouse of the insured Medical (General) History Medical History History ICD Code colonoscopy 2009 incomplete won't go for colonoscopy; colonoscopy done 01/19/[address] Kirby - repeat pending biopsy had cholesterol plaque CHADS score 2
== END 2025-01-11 08:03 | disposition home or self-care (01) ==
LOC: HO.XRAY 08:02
PROVIDERS: Visit Provider Internal Medicine
DX: J45.41 Moderate persistent asthma with (acute) exacerbation (principal)
CPT/HCPCS: 71046

== ENCOUNTER → 2025-01-11 08:06 | Outpatient (BNV) | payer MEDICARE, BC, SELFPAY | PROVIDERS: Visit Provider Radiology Diagnostic Radiology | DX: J44.9 Chronic obstructive pulmonary disease, unspecified (principal) | CPT/HCPCS: 71046 ==

== ENCOUNTER 2025-03-23 09:10 | Outpatient (AMB) | payer MEDICARE, BC, SELFPAY ==
--- OUTSIDE RECORDS SUMMARY | 2023-11-06 02:15 | XMS_ITS ---
Author Organization Cristo Jacobsen MD Address [address] [place], [place] [id number] Care Team Providers Care Certified Scrub Tech Name Role Phone Cristo Jacobsen Primary Care Provider [phone] Results Component Value Reference Range Notes Complete Blood Count Auto Di ff Reviewed date:11/06/2023 12:53:23 PM Interpretation: Performing Lab:[facility], [address] [place] [phone] Notes/Report: White Blood Count 7.7 4.8-10.8 X10*3/uL Red Blood Count 4.35 4.20-5.50 X10*6/uL Hemoglobin 13.9 12.0-16.0 g/dl Hematocrit 41.1 37.0-47.0 % Mean Corpuscular Volume 94.5 80.0-98.0 fL Mean Corpuscular Hemoglobin 32.0 27.0-33.0 pg Mean Corpuscular HGB Conc 33.8 31.0-35.0 g/dl Red Cell Distribution Width 12.5 11.0-16.0 % Platelet Count 313 160-400 X10*3/uL Mean Platelet Volume 10.5 9.4-12.3 fL Neutrophils Percent Auto 41.8 45-73 % Imm Gran Pct Auto 0.3 0.0-0.4 % Lymphocytes Percent Auto 42.7 20-40 % Monocytes Percent Auto 7.9 2-11 % Eosinophils Percent Auto 6.1 0-4 % Basophils Percent Auto 1.2 0-2 % NRBC Pct Auto 0.0 0.0-0.2 /100WBC Neutrophils Absolute Auto 3.2 2.0-8.3 x10*3/u L Imm Gran Abs Auto 0.02 0.00-0.03 X10*3/uL Lymphocytes Absolute Auto 3.3 1.2-4.9 X10*3/u L Monocytes Absolute Auto 0.6 0.1-1.2 X10*3/uL Eosinophils Absolute Auto 0.5 0.0-0.4 X10*3/u L Basophils Absolute Auto 0.1 0.0-0.2 X10*3/uL NRBC Abs Auto 0.000 0.0-0.012 X10*3/uL Comprehensive [place]. Panel Fa st Reviewed date:11/06/2023 04:53:39 PM Interpretation: Performing Lab:[address] [phone] Notes/Report: Sodium 140 135-145 mmol/L Potassium 4.0 3.3-5.1 mmol/L Chloride 105 96-108 mmol/L Carbon Dioxide 28 22-29 mmol/L Anion Gap 11 12-20 Blood Urea Nitrogen 14 9-16 mg/dL Creatinine 0.99 0.5-1.4 mg/dL Estimated Glomerular Filt Rate 56 NOTE: For -[place] individuals, multiply the result by 1.210. Chronic Kidney Disease: Estimated GFR < 60 mL/min/1.73m2 Severe Kidney Disease: Estimated GFR < 15 mL/min/1.73m2 Glucose Fasting 92 60-99 mg/dL Calcium 9.2 8.4-10.2 mg/dL Bilirubin Total 0.6 0.0-1.0 mg/dL Aspartate Amino Transferase 29 5-31 U/L Alanine Aminotransferase 20 0-31 U/L Total Protein 7.2 6.5-8.0 g/dL Albumin Level 4.1 3.5-5.0 g/dL Alkaline Phosphatase 84 39-117 U/L Lipid Panel Reviewed date:11/06/2023 04:52:55 PM Interpretation: Performing Lab:[facility], [address] [place] [phone] Notes/Report: Triglycerides 94 <150 mg/dL Desirable Triglyceride: less than 150 mg/dL Borderline High Triglyceride 150-199 mg/dL High Triglyceride: 200-499 mg/dL Very High Triglyceride: greater than or equal to 5OO mg/dL Cholesterol 190 <200 mg/dL Desirable Cholesterol: less than 200 mg/dL Borderline High Cholesterol: 200-239 mg/dL High Cholesterol: greater than 239 mg/dL LDL Cholesterol Calculated 113 <100 mg/dL Desirable LDL: less than 100 mg/dL Near Optimal/Above Optimal LDL: 110-129 mg/dL Borderline High LDL: 130-159 mg/dL High LDL: 160-189 mg/dL Very High LDL: greater than or equal to 190 mg/dL HDL Cholesterol 59 >40 mg/dL Desirable HDL: greater than 40 mg/dL Note: This HDL assay may give artificially low results in patients with liver disease. Vitamin D 25-OH Total Reviewed date:11/06/2023 04:53:13 PM Interpretation: Performing Lab:[address] [phone] Notes/Report: Vitamin D 25-OH Total 60.2 >30 ng/mL Health Based Reference Values* < 20 ng/mL Deficient 20-30 ng/mL Insufficient > 30 ng/mL Sufficient *aMikol TONY. N Engl J Med. 2007;357:266-280 Care must be taken in interpreting Vitamin D results from different laboratories and methodologies. Published data demonstrated that results from patients undergoing hemodialysis may show a negative bias when tested with various automated 25-OH vitamin D assays when compared to LC-MS/MS. When testing samples from patients whose predominant form of Vitamin D is Vitamin D2, such as patients receiving Vitamin D2 supplementation, results that are subtherapeutic should be confirmed with another method such as LC-MS/MS. TSH reflex Free T4 Reviewed date:11/06/2023 04:53:04 PM Interpretation: Performing Lab:[facility], [address] [place] [phone] Notes/Report: TSH reflex Free T4 4.34 0.32-4.0 uIU/mL UA ClnCatch+Micro w/rflx Cul t Reviewed date:11/06/2023 12:35:43 PM Interpretation: Performing Lab:[facility], [address] [place] [phone] Notes/Report: Urine, Clean Catch Color Urine Yellow Appearance Urine Clear PH 6.0 5.0-9.0 Glucose Urine UA Negative Negative mg/dL Urine Blood Negative Negative Specific [place] - Urine 1.010 1.005-1.025 Urine Protein Negative Neg-Trace mg/dL Urine Ketones Negative Negative mg/dL Nitrite Urine Negative Negative Leukocyte Esterase Urine Trace Negative RBC Urine 0-2 0-2 /HPF WBC Urine 0-5 0-5 /HPF Squamous Epithelial Cell Urine 0-2 0-2 /HPF Bacteria Urine None Seen None Seen Hyaline Casts Urine 0-2 0-2 /LPF REASON FOR VISIT FASTING LABS Encounters Encounter Location Date Provider Diagnosis Cristo Jacobsen MD [address] [place] [id number] 11/06/2023 Cristo Jacobsen Acquired hypothyroid ism E03.9 ; Vitamin D deficiency E55.9 and Hypercholesterolemia E78.00 Assessments Encounter Date Diagnosis (ICD Code) Assessment Notes Treatment Notes Treatment Clinical Notes Section Notes 11/06/2023 Acquired hypothyroid ism (ICD-10 - E03.9) 11/06/2023 Vitamin D deficiency (ICD-10 - E55.9) 11/06/2023 Hypercholesterolemia (ICD-10 - E78.00) Plan Of Treatment Next Appt Details Provider Name:Cristo mensah, 05/12/2025 07:45:00 AM, [address] [place] [address], [phone], Provider Name:Cristo mensah, 05/16/2025 09:00:00 AM, [address] [place] [address], [phone], Provider Name:Cristo mensah, 11/10/2025 07:15:00 AM, [address] [place] [address], [phone], Provider Name:Cristo loyar, 11/17/2025 09:30:00 AM, [address] [place] [address], [phone], Progress Notes * Radha WARD ADOB: (69 yo F)Acc No.[id number]:11/06/2023 Progress Note Patient: Jose Radha BELLA Provider: Makeda Jacobsen MD :[id number] A ge:68 Y S ex:Female Date:11/06/2023 Address:[address] [facility], [id number] Subjective: * Chief Complaints: * 1 . FASTING LABS. * Medical History: Objective: * Vitals: Assessment: * Assessment: 1. A cquired hypothyroidism - E03.9 (Primary) 2 . V itamin D deficiency - E55.9 3 . H ypercholesterolemia - E78.00 Plan: * Treatment: 2. V itamin D deficiency L AB: Complete Blood Count Auto Diff (Collection Date & Time - 11/06/2023 07:15 AM) L AB: Comprehensive [place]. Panel Fast (Collection Date & Time - 11/06/2023 07:15 AM) L AB: Lipid Panel (Collection Date & Time - 11/06/2023 07:15 AM) L AB: Vitamin D 25-OH Total (Collection Date & Time - 11/06/2023 07:15 AM) L AB: TSH reflex Free T4 (Collection Date & Time - 11/06/2023 07:15 AM) L AB: UA ClnCatch+Micro w/rflx Cult (Collection Date & Time - 11/06/2023 07:15 AM) 3. H ypercholesterolemia L AB: Complete Blood Count Auto Diff (Collection Date & Time - 11/06/2023 07:15 AM) L AB: Comprehensive [place]. Panel Fast (Collection Date & Time - 11/06/2023 07:15 AM) L AB: Lipid Panel (Collection Date & Time - 11/06/2023 07:15 AM) L AB: Vitamin D 25-OH Total (Collection Date & Time - 11/06/2023 07:15 AM) L AB: TSH reflex Free T4 (Collection Date & Time - 11/06/2023 07:15 AM) L AB: UA ClnCatch+Micro w/rflx Cult (Collection Date & Time - 11/06/2023 07:15 AM) * Procedure Codes: 3 6415 VENIPUNCT, ROUTINE* * * The named appointment provid er may or may not be the originator of this progress note, and it is not deemed complete until electronically signed by the appointment provider. Sign off status: Pending * Provider: Makeda Jacobsen MD Date: 0 11/06/2023 Generated for Sushila brambila/Raghav/Mitesh on: 1 09:23 AM EST
--- OUTSIDE RECORDS SUMMARY | 2023-11-13 08:00 | XMS_ITS ---
Author Organization Cristo Jacobsen MD Address [address] [place], [place] [id number] Care Team Providers Care Rn Clinical Coordinator Name Role Phone Cristo Jacobsen Primary Care Provider Allergies No Known Allergies REASON FOR VISIT ANNUAL EXAM Medications Medication SIG (Take, Route, Frequency, Duration) Notes Start Date End Date Status Wixela Inhub 250-50 MCG/ACT INHALE 1 PUF F BY MOUTH TWICE DAILY Inhalation Twice a day Active Flecainide Acetate 50 MG as directed Orally bid Active ProAir HFA 108 (90 Base) MCG/ACT 2 puffs as needed Inhalation every 4 hrs 07/21/2012 Active Vitamin D 50 MCG (1999 UT) 1 tablet Oral ly Once a day Active Apixaban 5 MG as directed Orally BID Active Metoprolol Succinate ER 25 MG TAKE 1 TABLET BY MOUTH EVERY DAY FOR 30 DAYS Active Levothyroxine Sodium 50 MCG TAKE 1 TABLE T BY MOUTH IN THE MORNING ON AN EMPTY STOMACH ONCE A DAY 90 Orally Once a day Active Rosuvastatin Calcium 10 MG TAKE 1 TABLET BY MOUTH EVERY DAY FOR 30 DAYS Active Social History Tobacco Use: Social History Observation Description Date Details (start date - stop date) Never Smoker NA - NA Tobacco Use/Smoking Question Answer Notes Patient is a nonsmoker Additional Findings: Tobacco Non-User Cu rrent non-smoker, currently using no form of tobacco Alcohol Screen Question Answer Notes Did you have a drink containing alcohol in the p ast year? No Points 0 Interpretation Negative Problems Problem Type SNOMED Code ICD Code Onset Dates Problem Status W/U Status Risk Notes Problem 14980406 Lymphocytosis (D72.820) Active confirmed Vital Signs Blood pressure systolic 90 mm Hg 11/13/19 24 Blood pressure diastolic 56 mm Hg 024 Height 64 in 11/13/2023 Weight 91 lbs 11/13/2023 BMI 15.62 kg/m2 11/13/2023 weight is down 1 pound since 05-16-23 Encounters Encounter Location Date Provider Diagnosis Cristo Jacobsen MD [address] [place] [address] [address] [place], [place] [phone] 11/13/2023 Cristo Jacobsen Lymphocytosis D72.82 0 ; Polyp of colon, unspecified part of colon, unspecified type K63.5 ; Mild intermittent asthma without complication J45.20 ; Atrial fibrillation I48.91 ; Irregular heart beat I49.9 ; Hypercholesterolemia E78.00 ; Vitamin D deficiency E55.9 ; Acquired hypothyroidism E03.9 and Depression screening Z13.31 Assessments Encounter Date Diagnosis (ICD Code) Assessment Notes Treatment Notes Treatment Clinical Notes Section Notes 11/13/2023 Lymphocytosis (ICD-1 0 - D72.820) stable, will continue to monitor 11/13/2023 Polyp of colon, unspecified part of colon, unspecified type (ICD-10 - K63.5) need biopsy results/REQUE ST FAXED TO HIM @ [facility] [place] 11/13/2023 Mild intermittent as thma without complication (ICD-10 - J45.20) not having any problems. will continue current regiment 11/13/2023 Atrial fibrillation (ICD-10 - I48.91) comes and goes occasionally, will continue current regiment 11/13/2023 Irregular heart beat (ICD-10 - I49.9) present at times, will continue current regiment 11/13/2023 Hypercholesterolemia (ICD-10 - E78.00) stable, will contiue current regiment 11/13/2023 Vitamin D deficiency (ICD-10 - E55.9) stable will continue current regiment 11/13/2023 Acquired hypothyroid ism (ICD-10 - E03.9) stable, will contiue current regiment 11/13/2023 Depression screening (ICD-10 - Z13.31) negatve screen 11/13/2023 Other Total time spent on the date of the encounter is 45 minutes including both face to face time spent and time spent reviewing documentation , and counseling the patient. Plan Of Treatment Medication Medication Name Sig Start Date Stop Date Notes Wixela Inhub 250-50 MCG/ACT INHALE 1 PUF F BY MOUTH TWICE DAILY Inhalation Twice a day Flecainide Acetate 50 MG as directed Orally bid ProAir HFA 108 (90 Base) MCG/ACT 2 puffs as needed Inhalation every 4 hrs 07/21/2012 Vitamin D 50 MCG (2000 UT) 1 tablet Orally Once a day Apixaban 5 MG as directed Orally BID Metoprolol Succinate ER 25 MG TAKE 1 TAB LET BY MOUTH EVERY DAY FOR 30 DAYS Levothyroxine Sodium 50 MCG TAKE 1 TABLE T BY MOUTH IN THE MORNING ON AN EMPTY STOMACH ONCE A DAY 90 Orally Once a day Rosuvastatin Calcium 10 MG TAKE 1 TABLET BY MOUTH EVERY DAY FOR 30 DAYS Treatment Notes Assessment Notes Lymphocytosis stable, will continu e to monitor Polyp of colon, unspecified part of colon, unspecified type need biopsy results/REQUEST FAXED TO HIM @ [facility] [place] Mild intermittent asthma without complic ation not having any problems. will continue current regiment Atrial fibrillation comes and goes occas ionally, will continue current regiment Irregular heart beat present at times, w ill continue current regiment Hypercholesterolemia stable, will contiu e current regiment Vitamin D deficiency stable will continu e current regiment Acquired hypothyroidism stable, will con tiue current regiment Depression screening negatve screen Other Total time spent on the date of the encounter is 45 minutes including both face to face time spent and time spent reviewing documentation, and counseling the patient. Next Appt Details Follow Up: 6 Months, Reason: Provider Name:Cristo mensah, 05/12/2025 07:45:00 AM, [address] [place] [address], [address], [phone], Provider Name:Cristo mensah, 05/16/2025 09:00:00 AM, [address] [place] [address], [phone], Provider Name:Cristo mensah, 11/10/2025 07:15:00 AM, [address] [place] [address], [address], [phone], Provider Name:Cristo mensah, 11/17/2025 09:30:00 AM, [address] [place] [address], [phone], Progress Notes * Radha WARD ADOB: (68 yo F)Acc No.[id number]:11/13/2023 Patient: Radha Courtney Provider: Makeda Jacobsen MD :1955 A ge:68 Y S ex:Female Date:11/13/2023 [facility] Subjective: * Chief Complaints: * A NNUAL EXAM * HPI: D epression Screening: PHQ-9 L ittle interest or pleasure in doing things N ot at all, F eeling down, depressed, or hopeless N ot at all, T rouble falling or staying asleep, or sleeping too much N ot at all, F eeling tired or having little energy N ot at all, P oor appetite or overeating N ot at all, F eeling bad about yourself or that you are a failure, or have let yourself or your family down N ot at all, T rouble concentrating on things, such as reading the newspaper or watching television N ot at all, M oving or speaking so slowly that other people could have noticed; or the opposite, being so fidgety or restless that you have been moving around a lot more than usual N ot at all, T houghts that you would be better off or of hurting yourself in some way N ot at all, T otal Score 0 . I nterpretation and Intervention D epression Screening Findings N egative, F ollow-Up for Depression : review of PHQ-9 found negative result, no follow-up needed. C ommunication Needs: Communication Needs D oes the patient have a hearing impairment N o, D oes the patient have a vision impairment? Y es, I f yes, what is the vision impairment? G lasses, D oes the patient have a cognition impairment? N o. F all Risk: History H ave you had any falls with injury in the past year? N o, H ave you had two or more falls in the past year? N o. S CARSON Questions: SDOH Questions I n the past year have you been worried about losing housing? N o, I n the past year have you or any family members you live with been unable to get any of the following when it was really needed? Check all that apply: N one. S ymptom(s): patient is a 68 yo female here for annual visit with review of recent labs and follow up ov chronic issues. * ROS: G eneral/Constitutional: Patient denies f atigue , headache. C hange in appetite?denies. C hills d enies. F ever d enies. O phthalmologic: Blurred vision d enies. D ischarge d enies. P ain d enies. E NT: Decreased hearing d enies. S ore throat d enies.?Swollen glands d enies. E ndocrine: Cold intolerance d enies. E xcessive thirst d enies. H eat intolerance d enies. W eight loss d enies. R espiratory: Cough d enies. S hortness of breath at rest d enies. S hortness of breath with exertion d enies. W heezing d enies. C ardiovascular: Chest pain at rest d enies. C hest pain with exertion?denies. I rregular heartbeat d enies. S hortness of breath d enies. ? G astrointestinal: Abdominal pain d enies. C hange in bowel habits d enies. D iarrhea d enies. N ausea d enies. R ectal bleeding d enies. V omiting d enies . G enitourinary: Blood in urine d enies. D ifficulty urinating d enies. F requent urination d enies. U rinary incontinence D enies. M usculoskeletal: Patient denies m uscle aches. P ainful joints d enies. W eakness d enies. P eripheral Vascular: Patient denies r ed and blue toes. S kin: Dry skin d enies. I tching d enies. D enies?Mole(s), changes in moles, new moles or any lesions of concern. D enies P hotosensitivity. R ed d enies. N eurologic: Dizziness d enies. F ainting d enies. H eadache?denies. * Medical History: * Surgical History: * Hospitalization/Major Diagno stic Procedure: * Family History: F ather: 80 yrs, NH. M other: 81 yrs, cervical cancer. 3 brother(s) , 4 sister(s) . 1 son(s) , 2 daughter(s) . . Denies mental health/substance abuse family history, Denies mental health/substance abuse family history, Denies mental health/substance abuse family history, Denies mental health/substance abuse family history, No pertinent family medical history. * Social History: T obacco Use: T obacco Use/Smoking P atient is a n onsmoker, A dditional Findings: Tobacco Non-User C urrent non-smoker, currently using no form of tobacco. D rugs/Alcohol: A lcohol Screen D id you have a drink containing alcohol in the past year? N o, P oints 0 , I nterpretation N egative. M iscellaneous: n o Caffeine. Children: yes. no Community involvements. Exercise: yes, 3-[facility]. Home smoke detector use: yes. Housing: owning. Living with: spouse. Marital status: . Occupation: works full-time. Pets: cats: dogs:Chinchillas and turtles. no Travel outside of the [place]. * Medications: T akingApixaban 5 MG Tablet as directed Orally BIDVitamin D 50 MCG (2000 UT) Tablet 1 tablet Orally Once a dayFlecainide Acetate 50 MG Tablet as directed Orally bidProAir HFA 108 (90 Base) MCG/ACT Aerosol Solution 2 puffs as needed Inhalation every 4 hrsRosuvastatin Calcium 10 MG Tablet TAKE 1 TABLET BY MOUTH EVERY DAY FOR 30 DAYS Levothyroxine Sodium 50 MCG Tablet TAKE 1 TABLET BY MOUTH IN THE MORNING ON AN EMPTY STOMACH ONCE A DAY 90 Orally Once a dayMetoprolol Succinate ER 25 MG Tablet Extended Release 24 Hour TAKE 1 TABLET BY MOUTH EVERY DAY FOR 30 DAYS Wixela Inhub 250-50 MCG/ACT Aerosol Powder Breath Activated INHALE 1 PUFF BY MOUTH TWICE DAILY Inhalation Twice a dayMedication List reviewed and reconciled with the patientTaking Apixaban 5 MG Tablet as directed Orally BIDTaking Vitamin D 50 MCG (2000 UT) Tablet 1 tablet Orally Once a dayTaking Flecainide Acetate 50 MG Tablet as directed Orally bidTaking ProAir HFA 108 (90 Base) MCG/ACT Aerosol Solution 2 puffs as needed Inhalation every 4 hrsTaking Rosuvastatin Calcium 10 MG Tablet TAKE 1 TABLET BY MOUTH EVERY DAY FOR 30 DAYS Taking Levothyroxine Sodium 50 MCG Tablet TAKE 1 TABLET BY MOUTH IN THE MORNING ON AN EMPTY STOMACH ONCE A DAY 90 Orally Once a dayTaking Metoprolol Succinate ER 25 MG Tablet Extended Release 24 Hour TAKE 1 TABLET BY MOUTH EVERY DAY FOR 30 DAYS Taking Wixela Inhub 250-50 MCG/ACT Aerosol Powder Breath Activated INHALE 1 PUFF BY MOUTH TWICE DAILY Inhalation Twice a dayMedication List reviewed and reconciled with the patient * Allergies: N .K.D.A.yes[Allergies Verified] Objective: * Vitals: H t: 64, Wt:91, BMI:15.62, BP:90/56 weight is down 1 pound since 05-16-23. * P ast Orders: L ab:UA ClnCatch+Micro w/rflx Cult (Order Date - 11/06/2023) (Collection Date - 11/06/2023) Value Reference Range Color Urine Yellow - Appearance Urine Clear - PH 6.0 5.0-9.0 - Glucose Urine UA Negative Negative - mg/dL Urine Blood Negative Negative - Specific [place] - Urine 1.010 1.005-1.025 - Urine Protein Negative Neg-Trace - mg/dL Urine Ketones Negative Negative - mg/dL Nitrite Urine Negative Negative - Leukocyte Esterase Urine Trace A Negative - RBC Urine 0-2 0-2 - /HPF WBC Urine 0-5 0-5 - /HPF Squamous Epithelial Cell Urine 0-2 0-2 - /HP F Bacteria Urine None Seen None Seen - Hyaline Casts Urine 0-2 0-2 - /LPF L ab:Complete Blood Count Auto Diff (Order Date - 11/06/2023) (Collection Date - 11/06/2023) Value Reference Range White Blood Count 7.7 4.8-10.8 - X10*3/uL Red Blood Count 4.35 4.20-5.50 - X10*6/uL Hemoglobin 13.9 12.0-16.0 - g/dl Hematocrit 41.1 37.0-47.0 - % Mean Corpuscular Volume 94.5 80.0-98.0 - fL Mean Corpuscular Hemoglobin 32.0 27.0-33.0 - pg Mean Corpuscular HGB Conc 33.8 31.0-35.0 - g/ dl Red Cell Distribution Width 12.5 11.0-16.0 - % Platelet Count 313 160-400 - X10*3/uL Mean Platelet Volume 10.5 9.4-12.3 - fL Neutrophils Percent Auto 41.8 L 45-73 - % Imm Gran Pct Auto 0.3 0.0-0.4 - % Lymphocytes Percent Auto 42.7 H 20-40 - % Monocytes Percent Auto 7.9 2-11 - % Eosinophils Percent Auto 6.1 H 0-4 - % Basophils Percent Auto 1.2 0-2 - % NRBC Pct Auto 0.0 0.0-0.2 - /100WBC Neutrophils Absolute Auto 3.2 2.0-8.3 - x10* 3/uL Imm Gran Abs Auto 0.02 0.00-0.03 - X10*3/uL Lymphocytes Absolute Auto 3.3 1.2-4.9 - X10* 3/uL Monocytes Absolute Auto 0.6 0.1-1.2 - X10*3/ uL Eosinophils Absolute Auto 0.5 H 0.0-0.4 - X10* 3/uL Basophils Absolute Auto 0.1 0.0-0.2 - X10*3/ uL NRBC Abs Auto 0.000 0.0-0.012 - X10*3/uL L ab:Free T4 (Free Thyroxine) (Order Date - 11/06/2023) (Collection Date - 11/06/2023) Value Reference Range Free T4 (Free Thyroxine) 1.19 0.71-1.85 - ng/ dL L ab:Comprehensive [place]. Panel Fast (Order Date - 11/06/2023) (Collection Date - 11/06/2023) Value Reference Range Sodium 140 135-145 - mmol/L Bilirubin Total 0.6 0.0-1.0 - mg/dL Aspartate Amino Transferase 29 5-31 - U/L Alanine Aminotransferase 20 0-31 - U/L Total Protein 7.2 6.5-8.0 - g/dL Albumin Level 4.1 3.5-5.0 - g/dL Alkaline Phosphatase 84 39-117 - U/L Potassium 4.0 3.3-5.1 - mmol/L Chloride 105 96-108 - mmol/L Carbon Dioxide 28 22-29 - mmol/L Anion Gap 11 L 12-20 - Blood Urea Nitrogen 14 9-16 - mg/dL Creatinine 0.99 0.5-1.4 - mg/dL Estimated Glomerular Filt Rate 56 - Glucose Fasting 92 60-99 - mg/dL Calcium 9.2 8.4-10.2 - mg/dL * Examination: G eneral Examination: GENERAL APPEARANCE: w ell developed, well nourished, in no acute distress. HEAD: n ormocephalic, atraumatic. EYES: p upils equal, round, reactive to light and accommodation, sclera non-icteric. EARS: n ormal. ORAL CAVITY: m ucosa moist. THROAT: c lear. NECK/THYROID: n brandi supple, full range of motion, no cervical lymphadenopathy, no bruits. SKIN: w arm and dry, no suspicious lesions. HEART: r egular rate and rhythm, S1, S2 normal, no murmurs.? LUNGS: c lear to auscultation bilaterally mil wheezes. BREASTS: d one by health screener. ABDOMEN: s oft, nontender, nondistended, bowel sounds present, normal, no organomegaly , no masses palpable. RECTAL EXAM: d one by health screener. FEMALE GENITOURINARY: d one by health screener. EXTREMITIES: n o clubbing, cyanosis, or edema. NEUROLOGIC: n onfocal, motor strength normal upper and lower extremities, sensory exam intact. Assessment: * Assessment: 1. L ymphocytosis - D72.820 (Primary) 2 . P olyp of colon, unspecified part of colon, unspecified type - K63.5 3 . M ild intermittent asthma without complication - J45.20 4 .?Atrial fibrillation - I48.91 5 . I rregular heart beat - I49.9 6 . H ypercholesterolemia - E78.00 7 . V itamin D deficiency - E55.9 8 . A cquired hypothyroidism - E03.9 9 . D epression screening - Z13.31 Plan: * Treatment: 2. P olyp of colon, unspecified part of colon, unspecified type Notes: need biopsy results/REQUEST FAXED TO HIM @ [facility] [place]. 3. M ild intermittent asthma without complication Continue ProAir HFA Aerosol Solution, 108 (90 Base) MCG/ACT, 2 puffs as needed, Inhalation, every 4 hrs; C ontinue Wixela Inhub Aerosol Powder Breath Activated, 250-50 MCG/ACT, INHALE 1 PUFF BY MOUTH TWICE DAILY, Inhalation, Twice a day. Notes: not having any problems. will continue current regiment. 4. A trial fibrillation Continue Apixaban Tablet, 5 MG, as directed, Orally, BID. Notes: comes and goes occasionally, will continue current regiment. 5. I rregular heart beat Continue Flecainide Acetate Tablet, 50 MG, as directed, Orally, bid; C ontinue Metoprolol Succinate ER Tablet Extended Release 24 Hour, 25 MG, TAKE 1 TABLET BY MOUTH EVERY DAY FOR 30 DAYS. ? Notes: present at times, will continue current regiment. 6. H ypercholesterolemia Continue Rosuvastatin Calcium Tablet, 10 MG, TAKE 1 TABLET BY MOUTH EVERY DAY FOR 30 DAYS. ? Notes: stable, will contiue current regiment. 7. V itamin D deficiency Continue Vitamin D Tablet, 50 MCG (2000 UT), 1 tablet, Orally, Once a day. Notes: stable will continue current regiment. 8. A cquired hypothyroidism Continue Levothyroxine Sodium Tablet, 50 MCG, TAKE 1 TABLET BY MOUTH IN THE MORNING ON AN EMPTY STOMACH ONCE A DAY 90, Orally, Once a day. Notes: stable, will contiue current regiment. 9. D epression screening Notes: negatve screen. 10. O thers Notes: Total time spent on the date of the encounter is 45 minutes including both face to face time spent and time spent reviewing documentation, and counseling the patient. * Procedure Codes: * Follow Up: 6 Months * * Sign off status: Completed true * Provider: Makeda Jacobsen MD Date: 0 11/13/2023 Generated for Sushila brambila/Raghav/Mitesh on: 09:22 AM EST History and Physical Notes * HPI (History of Present Illness) Category Sub-Category Detail Notes Category Not es Symptom(s) patient is a 68 yo female here for annual visit with review of recent labs and follow up ov chronic issues. Depression Screening PHQ-9 Little inte rest or pleasure in doing things: Not at all Feeling down, depressed, or hopeless: No t at all Trouble falling or staying asleep, or sl eeping too much: Not at all Feeling tired or having little energy: N ot at all Poor appetite or overeating: Not at all Feeling bad about yourself o r that you are a failure, or have let yourself or your family down: Not at all Trouble concentrating on thi ngs, such as reading the newspaper or watching television: Not at all Moving or speaking so slowly that other people could have noticed; or the opposite, being so fidgety or restless that you have been moving around a lot more than usual: Not at all Thoughts that you would be b lyndsey off or of hurting yourself in some way: Not at all Total Score: 0 Interpretation and Intervention Depression [place] Findings: Negative Follow-Up for Depression: : review of PH Q-9 found negative result, no follow-up needed SDOH Questions SDOH Questions In the past year have you been worried about losing housing?: No In the past year have you or any family members you live with been unable to get any of the following when it was really needed? Check all that apply:: None Fall Risk History Have you had any falls with injury i n the past year?: No Have you had two or more falls in the st year?: No Communication Needs Communication Needs Does the patient have a hearing impairment: No Does the patient have a vision impairmen t?: Yes If yes, what is the vision impairment?: Glasses Does the patient have a cognition impair ment?: No Examination Category Sub-Category Detail Notes Category Not es General Examination GENERAL APPEARANCE: well dev eloped, well nourished, in no acute distress HEAD: normocephalic, atrau matic EYES: pupils equal, round, reactive to light and accommodation, sclera non-icteric EARS: normal THROAT: clear NECK/THYROID: neck supple, full ra nge of motion, no cervical lymphadenopathy, no bruits HEART: regular rate and rhy thm, S1, S2 normal, no murmurs LUNGS: clear to auscultatio n bilaterally mil wheezes ABDOMEN: soft, nontender, non distended, bowel sounds present, normal, no organomegaly , no masses palpable NEUROLOGIC: nonfocal, motor stre ngth normal upper and lower extremities, sensory exam intact SKIN: warm and dry, no rosy picious lesions EXTREMITIES: no clubbing, cyanosi s, or edema BREASTS: done by health screener RECTAL EXAM: done by health screener FEMALE GENITOURINARY: done by health screener ORAL CAVITY: mucosa moist
--- OUTSIDE RECORDS SUMMARY | 2024-01-13 02:45 | XMS_ITS ---
Author Organization Cristo Jacobsen MD Address [address] [place], [place] [phone] Care Team Providers Care Associate Research Scientist Name Role Phone Cristo Jacobsen Primary Care Provider Results Component Value Reference Range Notes Complete Blood Count Auto Di ff Reviewed date:01/13/2024 08:42:00 PM Interpretation: Performing Lab:[facility], [address] [place] [phone] Notes/Report: White Blood Count 6.4 4.8-10.8 X10*3/uL Red Blood Count 3.94 4.20-5.50 X10*6/uL Hemoglobin 13.1 12.0-16.0 g/dl Hematocrit 38.3 37.0-47.0 % Mean Corpuscular Volume 97.2 80.0-98.0 fL Mean Corpuscular Hemoglobin 33.2 27.0-33.0 pg Mean Corpuscular HGB Conc 34.2 31.0-35.0 g/dl Red Cell Distribution Width 12.6 11.0-16.0 % Platelet Count 308 160-400 X10*3/uL Mean Platelet Volume 10.5 9.4-12.3 fL Neutrophils Percent Auto 46.6 45-73 % Imm Gran Pct Auto 0.2 0.0-0.4 % Lymphocytes Percent Auto 38.1 20-40 % Monocytes Percent Auto 8.3 2-11 % Eosinophils Percent Auto 5.5 0-4 % Basophils Percent Auto 1.3 0-2 % NRBC Pct Auto 0.0 0.0-0.2 /100WBC Neutrophils Absolute Auto 3.0 2.0-8.3 x10*3/u L Imm Gran Abs Auto 0.01 0.00-0.03 X10*3/uL Lymphocytes Absolute Auto 2.4 1.2-4.9 X10*3/u L Monocytes Absolute Auto 0.5 0.1-1.2 X10*3/uL Eosinophils Absolute Auto 0.4 0.0-0.4 X10*3/u L Basophils Absolute Auto 0.1 0.0-0.2 X10*3/uL NRBC Abs Auto 0.000 0.0-0.012 X10*3/uL REASON FOR VISIT CBC W/ AUTO DIFF Immunizations Vaccine Route Administration Date Status Comme nts Fluarix Quadrivalent - 150 IM Intramuscular 01/13/2024 Adm inistered Encounters Encounter Location Date Provider Diagnosis Cristo Jacobsen MD [address] [place] [phone] 01/13/2024 Cristo Jacobsen Lymphocytosis D72.82 0 and Encounter for immunization Z23 Assessments Encounter Date Diagnosis (ICD Code) Assessment Notes Treatment Notes Treatment Clinical Notes Section Notes 01/13/2024 Lymphocytosis (ICD-10 - D72.820) 01/13/2024 Encounter for immunization (ICD-10 - Z23) Plan Of Treatment Next Appt Details Provider Name:Cristo mensah, 05/12/2025 07:45:00 AM, [address] [place] [address], [address], [phone], Provider Name:Cristo mensah, 05/16/2025 09:00:00 AM, [address] [place] [address], [phone], Provider Name:Cristo mensah, 11/10/2025 07:15:00 AM, [address] [place] [address], [phone], Provider Name:Cristo mensah, 11/17/2025 09:30:00 AM, [address] [place] [address], [phone], Progress Notes * Radha WARD ADOB: 7 (68 yo F)Acc No.[id number]:01/13/2024 Progress Note Patient: Radha Courtney Provider: Makeda Jacobsen MD :1955 A ge:68 Y S ex:Female Date:01/13/2024 [facility] Subjective: * Chief Complaints: * C BC W/ AUTO DIFF * Medical History: * Surgical History: * Hospitalization/Major Diagno stic Procedure: * Medications: Objective: Assessment: * Assessment: 1. L ymphocytosis - D72.820 (Primary) 2 . E ncounter for immunization - Z23 Plan: * Treatment: * Immunizations: Fluarix Quadrivalent - 150 : 0.5 mL (Dose No:1) (Route: Intramuscular) given by Audrey Fierro on Left Deltoid * Procedure Codes: 3 6415 VENIPUNCT, ROUTINE*61387 FLU VACCINE NO PRESERV 3 & >G0008 ADMN FLU VAC NO FEE SCHED SAME DAY * * Sign off status: Completed true * Provider: Makeda Jacobsen MD Date: Generated for Sushila brambila/Raghav/Coreysmitting on: 09:21 AM EST
--- OUTSIDE RECORDS SUMMARY | 2024-04-19 07:35 | XMS_ITS ---
Author Organization Cristo Jacobsen MD Address [address] [place] [phone] Care Team Providers Care 911 Telecommunicator Name Role Phone Cristo Jacobsen Primary Care Provider Medications Medication SIG (Take, Route, Frequency, Duration) Notes Start Date End Date Status Levothyroxine Sodium 50 MCG one tablet O rally Once a day for 90 days Active Encounters Encounter Location Date Provider Diagnosis Cristo Jacobsen MD [address] [place] [phone] 04/19/2024 Cristo Jacobsen Acquired hypothyroidism E03.9 Assessments Encounter Date Diagnosis (ICD Code) Assessment Notes Treatment Notes Treatment Clinical Notes Section Notes 04/19/2024 Acquired hypothyroidism (ICD-10 - E03.9) Plan Of Treatment Medication Medication Name Sig Start Date Stop Date Notes Levothyroxine Sodium 50 MCG one tablet O rally Once a day for 90 days Next Appt Details Provider Name:Cristo mensah, 05/12/2025 07:45:00 AM, [address] [place] [address], [address], [phone], Provider Name:Cristo mensah, 05/16/2025 09:00:00 AM, [address] [place] [address], [phone], Provider Name:Cristo mensah, 11/10/2025 07:15:00 AM, [address] [place] [address], [phone], Provider Name:Cristo mensah, 11/17/2025 09:30:00 AM, [address] [facility] [address], [place], [place], [phone], Progress Notes * Radha WARD ADOB: (68 yo F)Acc No.[id number]:04/19/2024 Patient: Radha ACHARYA :1955 A ge:68 Y S ex:Female [facility] [place] [address] * Refills Refill Levothyroxine Sodium Tablet, 50 MCG, Orally, 90, one tablet, Once a day, 90 days, Refills=3 * true * Date: Generated for Sushila brambila/Raghav/Estelleitting on: 09:22 AM EST
--- OUTSIDE RECORDS SUMMARY | 2024-05-13 02:30 | XMS_ITS ---
Author Organization Cristo Jacobsen MD Address [address] [place] [phone] Care Team Providers Care Bi Report Developer Name Role Phone Cristo Jacobsen Primary Care Provider Results Component Value Reference Range Notes Lipid Panel with Reflex Reviewed date:05/13/2024 12:41:29 PM Interpretation: Performing Lab:[facility], [address] [place] [phone] Notes/Report: Triglycerides 75 <150 mg/dL Desirable Triglyceride: less than 150 mg/dL Borderline High Triglyceride 150-199 mg/dL High Triglyceride: 200-499 mg/dL Very High Triglyceride: greater than or equal to 5OO mg/dL Cholesterol 184 <200 mg/dL Desirable Cholesterol: less than 200 mg/dL Borderline High Cholesterol: 200-239 mg/dL High Cholesterol: greater than 239 mg/dL LDL Cholesterol Calculated 110 <100 mg/dL Desirable LDL: less than 100 mg/dL Near Optimal/Above Optimal LDL: 110-129 mg/dL Borderline High LDL: 130-159 mg/dL High LDL: 160-189 mg/dL Very High LDL: greater than or equal to 190 mg/dL HDL Cholesterol 59 >40 mg/dL Desirable HDL: greater than 40 mg/dL Note: This HDL assay may give artificially low results in patients with liver disease. REASON FOR VISIT FASTING LIPIDS Encounters Encounter Location Date Provider Diagnosis Cristo Jacobsen MD [address] [facility] [address] [facility] [address] [place] [phone] 05/13/2024 Cristo Jacobsen Hypercholesterolemia E78.00 Assessments Encounter Date Diagnosis (ICD Code) Assessment Notes Treatment Notes Treatment Clinical Notes Section Notes 05/13/2024 Hypercholesterolemia (ICD-10 - E78.00) Plan Of Treatment Pending Test Test Name Order Date Liver Panel 05/13/2024 Next Appt Details Provider Name:Cristo Diaz ier, 05/12/2025 07:45:00 AM, [address], [address], [place], [place], [phone], Provider Name:Cristo Diaz ier, 05/16/2025 09:00:00 AM, [address], [address], [place], [place], [phone], Provider Name:Cristo Diaz ier, 11/10/2025 07:15:00 AM, [address] [place] [address] Drive, Suite [facility], [place], [place], [phone], Provider Name:Cristo Diaz ier, 11/17/2025 09:30:00 AM, [address] [place] [address], Suite [facility], [place], [place], [phone], Progress Notes * Radha WARD ADOB: (69 yo F)Acc No.[id number]:05/13/2024 Progress Note Patient: Radha ACHARYA A Provider: Makeda Jacobsen MD :1955 A ge:68 Y S ex:Female Date:05/13/2024 Address:[address] [place], [place] [phone] Subjective: * Chief Complaints: * 1 . FASTING LIPIDS. * Medical History: Objective: * Vitals: Assessment: * Assessment: 1. H ypercholesterolemia - E78.00 (Primary) Plan: * Treatment: * Procedure Codes: 3 6415 VENIPUNCT, ROUTINE* * * The named appointment provid er may or may not be the originator of this progress note, and it is not deemed complete until electronically signed by the appointment provider. Sign off status: Pending * Provider: Makeda Jacobsen MD Date: 0 05/13/2024 Generated for Sushila brambila/Raghav/eTransmitting on: 1 09:21 AM EST
--- OUTSIDE RECORDS SUMMARY | 2024-05-21 05:00 | XMS_ITS ---
Author Organization Cristo Jacobsen MD Address [address] [place] [address] [phone] Care Team Providers Care Gatehouse Attendant Name Role Phone Cristo Jacobsen Primary Care Provider Allergies No Known Allergies REASON FOR VISIT 6 MO F/U Medications Medication SIG (Take, Route, Frequency, Duration) Notes Start Date End Date Status Wixela Inhub 250-50 MCG/ACT INHALE 1 PUF F BY MOUTH TWICE DAILY Inhalation Twice a day Active Levothyroxine Sodium 50 MCG TAKE 1 TABLE T BY MOUTH IN THE MORNING ON AN EMPTY STOMACH ONCE A DAY 90 ORALLY ONCE A DAY 90 DAYS for 90 Active Rosuvastatin Calcium 10 MG TAKE 1 TABLET BY MOUTH EVERY DAY FOR 30 DAYS Orally Once a day for 90 days Active Metoprolol Succinate ER 25 MG TAKE 1 TABLET BY MOUTH EVERY DAY FOR 30 DAYS Active ProAir HFA 108 (90 Base) MCG/ACT 2 puffs as needed Inhalation every 4 hrs 07/21/2012 Active Flecainide Acetate 50 MG as directed Orally bid Active Apixaban 5 MG as directed Orally BID Active Vitamin D 50 MCG (1999) 1 tablet Oral ly Once a day Active Vital Signs Blood pressure systolic 112 mm Hg 05/21/19 25 Blood pressure diastolic 60 mm Hg 025 Height 64 in 05/21/2024 Weight 94 lbs 05/21/2024 BMI 16.13 kg/m2 05/21/2024 weight is up 3 pounds since 11-13-23 Encounters Encounter Location Date Provider Diagnosis Cristo Jacobsen MD [address] [place] [address] [phone] 05/21/2024 Cristo Jacobsen Hypercholesterolemia E78.00 ; Hyperlipidemia, unspecified hyperlipidemia type E78.5 ; Mild intermittent asthma without complication J45.20 and De Quervain's disease (tenosynovitis) M65.4 Assessments Encounter Date Diagnosis (ICD Code) Assessment Notes Treatment Notes Treatment Clinical Notes Section Notes 05/21/2024 Hypercholesterolemia (ICD-10 - E78.00) had run out of meds for 2 weeks. will continue current regiment 05/21/2024 Hyperlipidemia, unspecified hyperlipidemia type (ICD-10 - E78.5) 05/21/2024 Mild intermittent as thma without complication (ICD-10 - J45.20) has been doing well. 05/21/2024 De Quervain's diseas e (tenosynovitis) (ICD-10 - M65.4) if it gets worse will send to [facility] Plan Of Treatment Medication Medication Name Sig Start Date Stop Date Notes Rosuvastatin Calcium 10 MG TAKE 1 TABLET BY MOUTH EVERY DAY FOR 30 DAYS Orally Once a day for 90 days Treatment Notes Assessment Notes Hypercholesterolemia had run out of meds for 2 weeks. will continue current regiment Mild intermittent asthma without complic ation has been doing well. De Quervain's disease (tenosynovitis) if it gets worse will send to [facility] Next Appt Details Provider Name:Cristo mensah, 05/12/2025 07:45:00 AM, [address], [address] [place] [address], [phone], Provider Name:Cristo mensah, 05/16/2025 09:00:00 AM, [address], [address] [place] [address], [phone], Provider Name:Cristo mensah, 11/10/2025 07:15:00 AM, [address] [place] [address] Drive, [address] [place] [address], [phone], Provider Name:Cristo mensah, 11/17/2025 09:30:00 AM, [address] [place] [address], [address] [place] [address], [phone], Progress Notes * Radha WARD ADOB: 7 (68 yo F)Acc No.[id number]:05/21/2024 Progress Notes Patient: Radha ACHARYA Provider: Makeda Jacobsen MD :1955 A ge:68 Y S ex:Female Date:05/21/2024 [facility] Subjective: * Chief Complaints: * 6 MO F/U * HPI: S ymptom(s): patient is a 68 yo female here for 6 month follow up visit, had 2 episodes of afib lately. chest feels heavy when it happens. asthma has been bad lately due to exposure to cats. took a few days to get better. . uses advair twece a day. * ROS: G eneral/Constitutional: Denies C hills. D enies F atigue. D enies F ever. D enies H eadache. E NT: Patient denies d ecreased sense of smell, any loss of taste, sore throat. D enies S ore throat. R espiratory: Denies C ough. D enies S hortness of breath at rest. D enies S hortness of breath with exertion. G astrointestinal: Denies D iarrhea. D enies N ausea. M usculoskeletal: Patient denies m uscle aches. P eripheral Vascular: Patient denies r ed and blue toes. * Medical History: * Surgical History: * Hospitalization/Major Diagno stic Procedure: * Medications: T akingFlecainide Acetate 50 MG Tablet as directed Orally bid Apixaban 5 MG Tablet as directed Orally BID Vitamin D 50 MCG (1999 UT) Tablet 1 tablet Orally Once a day ProAir HFA 108 (90 Base) MCG/ACT Aerosol Solution 2 puffs as needed Inhalation every 4 hrs Rosuvastatin Calcium 10 MG Tablet TAKE 1 TABLET BY MOUTH EVERY DAY FOR 30 DAYS Metoprolol Succinate ER 25 MG Tablet Extended Release 24 Hour TAKE 1 TABLET BY MOUTH EVERY DAY FOR 30 DAYS Wixela Inhub 250-50 MCG/ACT Aerosol Powder Breath Activated INHALE 1 PUFF BY MOUTH TWICE DAILY Inhalation Twice a day Levothyroxine Sodium 50 MCG Tablet TAKE 1 TABLET BY MOUTH IN THE MORNING ON AN EMPTY STOMACH ONCE A DAY 90 ORALLY ONCE A DAY 90 DAYS Taking Flecainide Acetate 50 MG Tablet as directed Orally bid Taking Apixaban 5 MG Tablet as directed Orally BID Taking Vitamin D 50 MCG (2000 UT) Tablet 1 tablet Orally Once a day Taking ProAir HFA 108 (90 Base) MCG/ACT Aerosol Solution 2 puffs as needed Inhalation every 4 hrs Taking Rosuvastatin Calcium 10 MG Tablet TAKE 1 TABLET BY MOUTH EVERY DAY FOR 30 DAYS Taking Metoprolol Succinate ER 25 MG Tablet Extended Release 24 Hour TAKE 1 TABLET BY MOUTH EVERY DAY FOR 30 DAYS Taking Wixela Inhub 250-50 MCG/ACT Aerosol Powder Breath Activated INHALE 1 PUFF BY MOUTH TWICE DAILY Inhalation Twice a day Taking Levothyroxine Sodium 50 MCG Tablet TAKE 1 TABLET BY MOUTH IN THE MORNING ON AN EMPTY STOMACH ONCE A DAY 90 ORALLY ONCE A DAY 90 DAYS * Allergies: N .K.D.A.yes[Allergies Verified] Objective: * Vitals: H t: 64, Wt: 94, BMI:16.13, BP:112/60, Wt-k.64. weight is up 3 pounds since 11-13-23. * P ast Orders: L ab:Lipid Panel with Reflex (Order Date - 05/13/2024) (Collection Date & Time - 05/13/2024 07:30 AM) Value Reference Range Triglycerides 75 <150 - mg/dL Cholesterol 184 <200 - mg/dL LDL Cholesterol Calculated 110 H <100 - mg/dL HDL Cholesterol 59 >40 - mg/dL * Examination: G eneral Examination: GENERAL APPEARANCE: a lert, well hydrated, in no distress.? HEAD: n ormocephalic. SKIN: g ood turgor. HEART: n o murmurs, rubs, gallops, regular rate and rhythm.? LUNGS: f ew wheezes posteriorly. Assessment: * Assessment: 1. H ypercholesterolemia - E78.00 (Primary) 2 . H yperlipidemia, unspecified hyperlipidemia type - E78.5 3 . M ild intermittent asthma without complication - J45.20 4 . D e Quervain's disease (tenosynovitis) - M65.4 Plan: * Treatment: 2. M ild intermittent asthma without complication Notes: has been doing well. 3. D e Quervain's disease (tenosynovitis) Notes: if it gets worse will send to [facility] * Procedure Codes: * * Sign off status: Completed true * Provider: Makeda Jacobsen MD Date: 0 05/21/2024 Generated for Sushila brambila/Raghav/Estelleitting on: 1 09:21 AM EST History and Physical Notes * HPI (History of Present Illness) Category Sub-Category Detail Notes Category Not es Symptom(s) patient is a 68 yo female here for 6 month follow up visit, had 2 episodes of afib lately. chest feels heavy when it happens. asthma has been bad lately due to exposure to cats. took a few days to get better. . uses advair twece a day. Examination Category Sub-Category Detail Notes Category Not es General Examination GENERAL APPEARANCE: alert, w ell hydrated, in no distress HEAD: normocephalic HEART: no murmurs, rubs, ga llops, regular rate and rhythm LUNGS: few wheezes posterio rly SKIN: good turgor
--- OUTSIDE RECORDS SUMMARY | 2024-11-05 02:30 | XMS_ITS ---
Author Organization Cristo Jacobsen MD Address [address] [place], [place] [id number] Care Team Providers Care Auto Air Conditioning Mechanic Name Role Phone Cristo Jacosben Primary Care Provider [phone] Results Component Value Reference Range Notes Complete Blood Count Auto Di ff Reviewed date:11/05/2024 04:32:55 PM Interpretation: Performing Lab:[facility], [address] [place] [phone] Notes/Report: White Blood Count 7.9 4.8-10.8 X10*3/uL Red Blood Count 4.17 4.20-5.50 X10*6/uL Hemoglobin 13.4 12.0-16.0 g/dl Hematocrit 39.0 37.0-47.0 % Mean Corpuscular Volume 93.5 80.0-98.0 fL Mean Corpuscular Hemoglobin 32.1 27.0-33.0 pg Mean Corpuscular HGB Conc 34.4 31.0-35.0 g/dl Red Cell Distribution Width 12.6 11.0-16.0 % Platelet Count 306 160-400 X10*3/uL Mean Platelet Volume 10.0 9.4-12.3 fL Neutrophils Percent Auto 40.7 45-73 % Imm Gran Pct Auto 0.1 0.0-0.4 % Lymphocytes Percent Auto 38.8 20-40 % Monocytes Percent Auto 7.3 2-11 % Eosinophils Percent Auto 11.6 0-4 % Basophils Percent Auto 1.5 0-2 % NRBC Pct Auto 0.0 0.0-0.2 /100WBC Neutrophils Absolute Auto 3.2 2.0-8.3 x10*3/u L Imm Gran Abs Auto 0.01 0.00-0.03 X10*3/uL Lymphocytes Absolute Auto 3.1 1.2-4.9 X10*3/u L Monocytes Absolute Auto 0.6 0.1-1.2 X10*3/uL Eosinophils Absolute Auto 0.9 0.0-0.4 X10*3/u L Basophils Absolute Auto 0.1 0.0-0.2 X10*3/uL NRBC Abs Auto 0.000 0.0-0.012 X10*3/uL Comprehensive [place]. Panel Fa st Reviewed date:11/05/2024 12:40:25 PM Interpretation: Performing Lab:[facility], [address] [place] [phone] Notes/Report: Sodium 138 135-145 mmol/L Potassium 3.9 3.3-5.1 mmol/L Chloride 102 96-108 mmol/L Carbon Dioxide 28 22-29 mmol/L Anion Gap 12 12-20 Blood Urea Nitrogen 19 9-16 mg/dL Creatinine 1.07 0.5-1.4 mg/dL Estimated Glomerular Filt Rate 51 Chronic Kidney Disease: Estimated GFR < 60 mL/min/1.73m2 Severe Kidney Disease: Estimated GFR < 15 mL/min/1.73m2 Glucose Fasting 93 60-99 mg/dL Calcium 9.2 8.4-10.2 mg/dL Bilirubin Total 0.4 0.0-1.0 mg/dL Aspartate Amino Transferase 32 5-31 U/L Alanine Aminotransferase 20 0-31 U/L Total Protein 6.9 6.5-8.0 g/dL Albumin Level 4.4 3.5-5.0 g/dL Alkaline Phosphatase 74 39-117 U/L Lipid Panel Reviewed date:11/05/2024 12:41:10 PM Interpretation: Performing Lab:[address] [phone] Notes/Report: Triglycerides 94 <150 mg/dL Desirable Triglyceride: less than 150 mg/dL Borderline High Triglyceride 150-199 mg/dL High Triglyceride: 200-499 mg/dL Very High Triglyceride: greater than or equal to 5OO mg/dL Cholesterol 173 <200 mg/dL Desirable Cholesterol: less than 200 mg/dL Borderline High Cholesterol: 200-239 mg/dL High Cholesterol: greater than 239 mg/dL LDL Cholesterol Calculated 103 <100 mg/dL Desirable LDL: less than 100 mg/dL Near Optimal/Above Optimal LDL: 110-129 mg/dL Borderline High LDL: 130-159 mg/dL High LDL: 160-189 mg/dL Very High LDL: greater than or equal to 190 mg/dL HDL Cholesterol 52 >40 mg/dL Desirable HDL: greater than 40 mg/dL Note: This HDL assay may give artificially low results in patients with liver disease. Vitamin D 25-OH Total Reviewed date:11/05/2024 04:28:34 PM Interpretation: Performing Lab:[address] [phone] Notes/Report: Vitamin D 25-OH Total 126.0 >30 ng/mL Health Based Reference Values* < 20 ng/mL Deficient 20-30 ng/mL Insufficient > 30 ng/mL Sufficient *Maikol TONY. N Engl J Med. 2007;357:266-280 There is no well-established upper level of normal vitamin D levels. Some laboratories use 50 ng/mL as an upper limit of normal. However, toxicity is patient-dependent and may occur at any level. Careful correlation with the patient's presentation is necessary and, if there is concern for vitamin D toxicity, treatment should be considered irrespective of the serum level. Care must be taken in interpreting Vitamin [...] confirmed with another method such as LC-MS/MS. UA ClnCatch+Micro w/rflx Cul t Reviewed date:11/05/2024 04:33:19 PM Interpretation: Performing Lab:[facility], [address] [place] [phone] Notes/Report: Urine, Clean Catch Color Urine Yellow Appearance Urine Clear PH 6.0 5.0-9.0 Glucose Urine UA Negative Negative mg/dL Urine Blood Negative Negative Specific [place] - Urine 1.020 1.005-1.025 Urine Protein Negative Neg-Trace mg/dL Urine Ketones Negative Negative mg/dL Nitrite Urine Negative Negative Leukocyte Esterase Urine Negative Negative RBC Urine 0-2 0-2 /HPF WBC Urine 0-5 0-5 /HPF Squamous Epithelial Cell Urine 0-2 0-2 /HPF Bacteria Urine None Seen None Seen Hyaline Casts Urine 0-2 0-2 /LPF REASON FOR VISIT FASTING LABS Encounters Encounter Location Date Provider Diagnosis Cristo Jacobsen MD [address] [place] [phone] 11/05/2024 Cristo Jacobsen Acquired hypothyroid ism E03.9 ; Vitamin D deficiency E55.9 ; Hypercholesterolemia E78.00 and Lymphocytosis D72.820 Assessments Encounter Date Diagnosis (ICD Code) Assessment Notes Treatment Notes Treatment Clinical Notes Section Notes 11/05/2024 Acquired hypothyroid ism (ICD-10 - E03.9) 11/05/2024 Vitamin D deficiency (ICD-10 - E55.9) 11/05/2024 Hypercholesterolemia (ICD-10 - E78.00) 11/05/2024 Lymphocytosis (ICD-1 0 - D72.820) Plan Of Treatment Next Appt Details Provider Name:Cristo mensah, 05/12/2025 07:45:00 AM, [address] [place] [address], [phone], Provider Name:Cristo mensah, 05/16/2025 09:00:00 AM, [address] [place] [address], [id number], Provider Name:Cristo mensah, 11/10/2025 07:15:00 AM, [address] [place] [address], [phone], Provider Name:Cristo mensah, 11/17/2025 09:30:00 AM, [address] [place] [address], [id number], Progress Notes * Radha WARD ADOB: [birth year] (69 yo F)Acc No.[id number]:11/05/2024 Progress Note Patient: Radha ACHARYA Provider: Makeda Jacobsen MD :1955 A ge:69 Y S ex:Female Date:11/05/2024 Address:[place], [id number] Subjective: * Chief Complaints: * 1 . FASTING LABS. * Medical History: Objective: * Vitals: Assessment: * Assessment: 1. A cquired hypothyroidism - E03.9 (Primary) 2 . V itamin D deficiency - E55.9 3 . H ypercholesterolemia - E78.00 4 . L ymphocytosis - D72.820 Plan: * Treatment: 2. V itamin D deficiency L AB: Complete Blood Count Auto Diff (Collection Date & Time - 11/05/2024 07:30 AM) L AB: Comprehensive Cre[place]. Panel Fast (Collection Date & Time - 11/05/2024 07:30 AM) L AB: Lipid Panel (Collection Date & Time - 11/05/2024 07:30 AM) L AB: Vitamin D 25-OH Total (Collection Date & Time - 11/05/2024 07:30 AM) L AB: UA ClnCatch+Micro w/rflx Cult (Collection Date & Time - 11/05/2024 07:30 AM) 3. H ypercholesterolemia L AB: Complete Blood Count Auto Diff (Collection Date & Time - 11/05/2024 07:30 AM) L AB: Comprehensive [place]. Panel Fast (Collection Date & Time - 11/05/2024 07:30 AM) L AB: Lipid Panel (Collection Date & Time - 11/05/2024 07:30 AM) L AB: Vitamin D 25-OH Total (Collection Date & Time - 11/05/2024 07:30 AM) L AB: UA ClnCatch+Micro w/rflx Cult (Collection Date & Time - 11/05/2024 07:30 AM) 4. L ymphocytosis L AB: Complete Blood Count Auto Diff (Collection Date & Time - 11/05/2024 07:30 AM) L AB: Comprehensive Cre[place]. Panel Fast (Collection Date & Time - 11/05/2024 07:30 AM) L AB: Lipid Panel (Collection Date & Time - 11/05/2024 07:30 AM) L AB: Vitamin D 25-OH Total (Collection Date & Time - 11/05/2024 07:30 AM) L AB: UA ClnCatch+Micro w/rflx Cult (Collection Date & Time - 11/05/2024 07:30 AM) * Procedure Codes: 3 6415 VENIPUNCT, ROUTINE* * * The named appointment provid er may or may not be the originator of this progress note, and it is not deemed complete until electronically signed by the appointment provider. Sign off status: Pending * Provider: Makeda Jacobsen MD Date: 0 11/05/2024 Generated for Sushila brambila/Raghav/Estelleitting on: 1 09:22 AM EST
--- OUTSIDE RECORDS SUMMARY | 2024-11-12 04:30 | XMS_ITS ---
Author Organization Cristo Jacobsen MD Address [address] [place], [place] [id number] Care Team Providers Care Cnc Mechanic Name Role Phone Cristo Jacobsen Primary Care Provider Allergies No Known Allergies REASON FOR VISIT review labs Medications Medication SIG (Take, Route, Frequency, Duration) Notes Start Date End Date Status Rosuvastatin Calcium 10 MG TAKE 1 TABLET BY MOUTH EVERY DAY FOR 30 DAYS Orally Once a day for 90 days Active Levothyroxine Sodium 50 MCG TAKE 1 TABLE T BY MOUTH IN THE MORNING ON AN EMPTY STOMACH ONCE A DAY 90 ORALLY ONCE A DAY 90 DAYS for 90 Active Apixaban 5 MG as directed Orally BID Active Metoprolol Succinate ER 25 MG TAKE 1 TABLET BY MOUTH EVERY DAY FOR 30 DAYS Active Vitamin D 50 MCG (2000 UT) 1 tablet Oral ly Once a day Active Wixela Inhub 250-50 MCG/ACT INHALE 1 PUF F BY MOUTH TWICE DAILY Inhalation Twice a day Active Flecainide Acetate 50 MG as directed Orally bid Active ProAir HFA 108 (90 Base) MCG/ACT 2 puffs as needed Inhalation every 4 hrs 07/21/2012 Active Social History Tobacco Use: Social History [...] ast year? No Points 0 Interpretation Negative Vital Signs Blood pressure systolic 84 mm Hg 11/13/19 25 Blood pressure diastolic 56 mm Hg 025 Height 64 in 11/12/2024 Weight 93 lbs 11/12/2024 BMI 15.96 kg/m2 11/12/2024 weight is down 1 poiund sinc e 05-21-24 Encounters Encounter Location Date Provider Diagnosis Cristo Jacobsen MD [address] [place] [address] Drive [address] [place], [place] [phone] 11/12/2024 Cristo Jacobsen Mild intermittent asthma without complication J45.20 ; Atrial fibrillation I48.91 ; De Quervain's disease (radial styloid tenosynovitis) M65.4 and Acquired hypothyroidism E03.9 Assessments Encounter Date Diagnosis (ICD Code) Assessment Notes Treatment Notes Treatment Clinical Notes Section Notes 11/12/2024 Mild intermittent asthma without complication (ICD-10 - J45.20) well controlled 11/12/2024 Atrial fibrillation (ICD-10 - I48.91) may need to have ablation. seeing dr vivar 11/12/2024 De Quervain's disease (radial styloid tenosynovitis) (ICD-10 - M65.4) doesn't want to do anything 11/12/2024 Acquired hypothyroidism (ICD-10 - E03.9) Plan Of Treatment Medication Medication Name Sig Start Date Stop Date Notes Apixaban 5 MG as directed Orally BID Wixela Inhub 250-50 MCG/ACT INHALE 1 PUF F BY MOUTH TWICE DAILY Inhalation Twice a day ProAir HFA 108 (90 Base) MCG/ACT 2 puffs as needed Inhalation every 4 hrs 07/21/2012 Treatment Notes Assessment Notes Mild intermittent asthma wit hout complication well controlled Atrial fibrillation may need to have abl ation. seeing dr vivar De Quervain's disease (radia l styloid tenosynovitis) doesn't want to do anything Next Appt Details Follow Up: 6 Months, Reason: Provider Name:Cristo mensah, 05/12/2025 07:45:00 AM, [address] [place] [address] Drive, [address], [place], [place], [phone], Provider Name:Cristo mensah, 05/16/2025 09:00:00 AM, [address] [place] [address], [address], [place], [place], [phone], Provider Name:Cristo mensah, 11/10/2025 07:15:00 AM, [address], [address], [place], [place], [phone], Provider Name:Cristo Diaz rodrick, 11/17/2025 09:30:00 AM, [address], [address], [place], [place], [phone], Progress Notes * Radha WARD ADOB: (69 yo F)Acc No.[id number]:11/12/2024 Patient: Radha ACHARYA Provider: Makeda Jacobsen MD :1955 A ge:69 Y S ex:Female Date:11/12/2024 [id number] Subjective: * Chief Complaints: * R eview labs * HPI: D epression Screening: PHQ-9 L [...] N one. S ymptom(s): patient is a 69 yo female here for visit with review of recent labs and follow up of chronic issues here for annual. had 6 episodes of afib. takes and extra flecanide. * ROS: G eneral/Constitutional: Change in appetite d enies. C hills d enies. F ever d [...] U rinary incontinence D enies. M usculoskeletal: Painful joints d enies. W eakness d enies. ? S kin: Dry skin d enies. I tching d enies. D enies?Mole(s), changes in moles, new moles or any lesions of concern. D enies P hotosensitivity. R ed d enies. N eurologic: Dizziness d enies. F ainting d enies. H eadache?denies. * Medical History: * Surgical History: * Hospitalization/Major Diagno stic Procedure: * Family History: F ather: 80 yrs, [place]. M other: 81 yrs, cervical cancer. 3 [...] , I nterpretation N egative. M iscellaneous: C affeine: no. Children: yes. Community involvements: no. Exercise: yes, 3[facility] Home smoke detector use: yes. Housing: owning. Living with: spouse. Marital status: . Occupation: works full-time. Pets: cats: dogs:Chinchillas and turtles. * Medications: T akingFlecainide Acetate 50 MG Tablet as directed Orally bid Apixaban 5 MG Tablet as directed Orally BID Vitamin D 50 MCG (1999 UT) Tablet 1 tablet Orally Once a day ProAir HFA 108 (90 Base) MCG/ACT Aerosol Solution 2 puffs as needed Inhalation every 4 hrs Metoprolol Succinate ER 25 MG Tablet Extended [...] 90 ORALLY ONCE A DAY 90 DAYS Rosuvastatin Calcium 10 MG Tablet TAKE 1 TABLET BY MOUTH EVERY DAY FOR 30 DAYS Orally Once a day Medication List reviewed and reconciled with the patientTaking Flecainide Acetate 50 MG Tablet as directed Orally bid Taking Apixaban 5 MG Tablet as directed Orally BID Taking Vitamin D 50 MCG (2000 UT) Tablet 1 tablet Orally Once a day Taking ProAir HFA 108 (90 Base) MCG/ACT Aerosol Solution 2 puffs as needed Inhalation every 4 hrs Taking Metoprolol Succinate ER 25 MG Tablet [...] ORALLY ONCE A DAY 90 DAYS Taking Rosuvastatin Calcium 10 MG Tablet TAKE 1 TABLET BY MOUTH EVERY DAY FOR 30 DAYS Orally Once a day Medication List reviewed and reconciled with the patient * Allergies: N .K.D.A.yes[Allergies Verified] Objective: * Vitals: H t: 64, Wt: 93, BMI:15.96, BP:84/56, Wt-k.18. weight is down 1 poiund since 05-21-24. * P ast Orders: L ab:Lipid Panel (Order Date - 11/05/2024) (Collection Date & Time - 11/05/2024 07:30 AM) Value Reference Range Triglycerides 94 <150 - mg/dL Cholesterol 173 <200 - mg/dL LDL Cholesterol Calculated 103 H <100 - mg/dL HDL Cholesterol 52 >40 - mg/dL L ab:Comprehensive [place]. Panel Fast (Order Date - 11/05/2024) (Collection Date & Time - 11/05/2024 07:30 AM) Value Reference Range Sodium 138 135-145 - mmol/L Bilirubin Total 0.4 0.0-1.0 - mg/dL Aspartate Amino Transferase 32 H 5-31 - U/L Alanine Aminotransferase 20 0-31 - U/L Total Protein 6.9 6.5-8.0 - g/dL Albumin Level 4.4 3.5-5.0 - g/dL Alkaline Phosphatase 74 39-117 - U/L Potassium 3.9 3.3-5.1 - mmol/L Chloride 102 96-108 - mmol/L Carbon Dioxide 28 22-29 - mmol/L Anion Gap 12 12-20 - Blood Urea Nitrogen 19 H 9-16 - mg/dL Creatinine 1.07 0.5-1.4 - mg/dL Estimated Glomerular Filt Rate 51 - Glucose Fasting 93 60-99 - mg/dL Calcium 9.2 8.4-10.2 - mg/dL L ab:Complete Blood Count Auto Diff (Order Date - 11/05/2024) (Collection Date & Time - 11/05/2024 07:30 AM) Value Reference Range White Blood Count 7.9 4.8-10.8 - X10*3/uL Red Blood Count 4.17 L 4.20-5.50 - X10*6/uL Hemoglobin 13.4 12.0-16.0 - g/dl Hematocrit 39.0 37.0-47.0 - % Mean Corpuscular Volume 93.5 80.0-98.0 - fL Mean Corpuscular Hemoglobin 32.1 27.0-33.0 - pg Mean Corpuscular HGB Conc 34.4 31.0-35.0 - g/ dl Red Cell Distribution Width 12.6 11.0-16.0 - % Platelet Count 306 160-400 - X10*3/uL Mean Platelet Volume 10.0 9.4-12.3 - fL Neutrophils Percent Auto 40.7 L 45-73 - % Imm Gran Pct Auto 0.1 0.0-0.4 - % Lymphocytes Percent Auto 38.8 20-40 - % Monocytes Percent Auto 7.3 2-11 - % Eosinophils Percent Auto 11.6 H 0-4 - % Basophils Percent Auto 1.5 0-2 - % NRBC Pct Auto 0.0 0.0-0.2 - /100WBC Neutrophils Absolute Auto 3.2 2.0-8.3 - x10* 3/uL Imm Gran Abs Auto 0.01 0.00-0.03 - X10*3/uL Lymphocytes Absolute Auto 3.1 1.2-4.9 - X10* 3/uL Monocytes Absolute Auto 0.6 0.1-1.2 - X10*3/ uL Eosinophils Absolute Auto 0.9 H 0.0-0.4 - X10* 3/uL Basophils Absolute Auto 0.1 0.0-0.2 - X10*3/ uL NRBC Abs Auto 0.000 0.0-0.012 - X10*3/uL L ab:Vitamin D 25-OH Total (Order Date - 11/05/2024) (Collection Date & Time - 11/05/2024 07:30 AM) Value Reference Range Vitamin D 25-OH Total 126.0 >30 - ng/mL L ab:UA ClnCatch+Micro w/rflx Cult (Order Date - 11/05/2024) (Collection Date & Time - 11/05/2024 07:30 AM) Value Reference Range Color Urine Yellow - Appearance Urine Clear - PH 6.0 5.0-9.0 - Glucose Urine UA Negative Negative - mg/dL Urine Blood Negative Negative - Specific [place] - Urine 1.020 1.005-1.025 - Urine Protein Negative Neg-Trace - mg/dL Urine Ketones Negative Negative - mg/dL Nitrite Urine Negative Negative - Leukocyte Esterase Urine Negative Negative - RBC Urine 0-2 0-2 - /HPF WBC Urine 0-5 0-5 - /HPF Squamous Epithelial Cell Urine 0-2 0-2 - /HP F Bacteria Urine None Seen None Seen - Hyaline Casts Urine 0-2 0-2 - /LPF * Examination: G eneral Examination: GENERAL APPEARANCE: [...] no murmurs.? LUNGS: c lear to auscultation bilaterally. BREASTS: d one by space engineer. ABDOMEN: s oft, nontender, nondistended, bowel sounds present, normal, no organomegaly , no masses palpable. RECTAL EXAM: d one by space engineer. FEMALE GENITOURINARY: d one by space engineer. EXTREMITIES: n o clubbing, cyanosis, or edema. NEUROLOGIC: n onfocal, motor strength normal upper and lower extremities, sensory exam intact. Assessment: * Assessment: 1. M ild intermittent asthma without complication - J45.20 (Primary) 2 . A trial fibrillation - I48.91 3 . D e Quervain's disease (radial styloid tenosynovitis) - M65.4 4 . A cquired hypothyroidism - E03.9 Plan: * Treatment: 2. A trial fibrillation Continue Apixaban Tablet, 5 MG, as directed, Orally, BID. Notes: may need to have ablation. seeing dr vivar 3. D e Quervain's disease (radial styloid tenosynovitis) Notes: doesn't want to do anything * Procedure Codes: * Follow Up: 6 Months * * Sign off status: Completed true * Provider: Makeda Jacobsen MD Date: 0 11/12/2024 Generated for Sushila brambila/Raghav/Mitesh on: 1 09:22 AM EST History and Physical Notes * HPI (History of Present Illness) Category Sub-Category Detail Notes Category Not es Symptom(s) patient is a 69 yo female here for visit with review of recent labs and follow up of chronic issues here for annual. had 6 episodes of afib. takes and extra flecanide. Depression Screening PHQ-9 Little inte rest or [...] Total Score: 0 Interpretation and Intervention Depression Chelsi quinn Findings: Negative Follow-Up for Depression: : review [...] had two or more falls in the year?: No Communication Needs Communication Needs Does [...] murmurs LUNGS: clear to auscultatio n bilaterally ABDOMEN: soft, nontender, non distended, bowel sounds present, normal, no organomegaly , no masses palpable NEUROLOGIC: nonfocal, motor stre ngth normal upper and lower extremities, sensory exam intact SKIN: warm and dry, no rosy picious lesions EXTREMITIES: no clubbing, cyanosi s, or edema BREASTS: done by space engineer RECTAL EXAM: done by space engineer FEMALE GENITOURINARY: done by space engineer ORAL CAVITY: mucosa moist
--- OUTSIDE RECORDS SUMMARY | 2025-01-04 06:15 | XMS_ITS ---
Author Organization Cristo Jacobsen MD Address [address] [place] [phone] Care Team Providers Care Film Sound Engineer Name Role Phone Cristo Jacobsen Primary Care Provider [phone] Allergies No Known Allergies REASON FOR VISIT coughing fatigue ? fractured rib x 3 weeks, Video [phone] Medications Medication SIG (Take, Route, Frequency, Duration) Notes Start Date End Date Status Zithromax Z-Vince 250 MG 2 tablet on the irst day, then 1 tablet daily for 4 days Orally Once a day for 5 day(s) 01/04/2025 Active Rosuvastatin Calcium 10 MG TAKE 1 TABLET BY MOUTH EVERY DAY FOR 30 DAYS Orally Once a day for 90 days Active ProAir HFA 108 (90 Base) MCG/ACT 2 puffs as needed Inhalation every 4 hrs 07/21/2012 Active Wixela Inhub 250-50 MCG/ACT INHALE 1 PUF F BY MOUTH TWICE DAILY Inhalation Twice a day Active Apixaban 5 MG as directed Orally BID Active Levothyroxine Sodium 50 MCG TAKE 1 TABLE T BY MOUTH IN THE MORNING ON AN EMPTY STOMACH ONCE A DAY 90 ORALLY ONCE A DAY 90 DAYS for 90 Active Flecainide Acetate 50 MG as directed Orally bid Active Vitamin D 50 MCG (1999) 1 tablet Oral ly Once a day Active Metoprolol Succinate ER 25 MG TAKE 1 TABLET BY MOUTH EVERY DAY FOR 30 DAYS Active Albuterol Sulfate HFA 108 (90 Base) MCG/ACT 1 puff as needed Inhalation every 4 hrs for 30 days 01/04/2025 Active predniSONE 10 MG as directed Orally 4 tabs for 3 days,3tabs for 3 days, 2 tabs for 3 days, and 1 tab for 3 days for 14 days 01/04/2025 Active Vital Signs Height 64 in 01/04/2025 weight at home is 90 BP not taken no temp today Encounters Encounter Location Date Provider Diagnosis Cristo Jacobsen MD [address] [place] [address] [place] [phone] 01/04/2025 Cristo Jacobsen Moderate persistent asthmatic bronchitis with acute exacerbation J45.41 Assessments Encounter Date Diagnosis (ICD Code) Assessment Notes Treatment Notes Treatment Clinical Notes Section Notes 01/04/2025 Moderate persistent asthmatic bronchitis with acute exacerbation (ICD-10 - J45.41) patient verbalized understanding of medication and directions for use, [place] [facility] Plan Of Treatment Medication Medication Name Sig Start Date Stop Date Notes Zithromax Z-Vince 250 MG 2 tablet on the f irst day, then 1 tablet daily for 4 days Orally Once a day for 5 day(s) 01/04/2025 Albuterol Sulfate HFA 108 (9 0 Base) MCG/ACT 1 puff as needed Inhalation every 4 hrs for 30 days 01/04/2025 predniSONE 10 MG as directed Orally 4 tabs for 3 days,3tabs for 3 days, 2 tabs for 3 days, and 1 tab for 3 days for 14 days 01/04/2025 Treatment Notes Assessment Notes Moderate persistent asthmati c bronchitis with acute exacerbation patient verbalized understanding of medication and directions for use, chest [place] [facility] Pending Test Test Name Order Date XR CHEST 2 VIEW PA & LAT 01/04/2025 Next Appt Details Provider Name:Cristo mensah, 05/12/2025 07:45:00 AM, [address] [place] [address], [address] [place] [address], [phone], Provider Name:Cristo mensah, 05/16/2025 09:00:00 AM, [address] [place] [address], [address], [phone], Provider Name:Cristo mensah, 11/10/2025 07:15:00 AM, [address] [place] [address], [address], [phone], Provider Name:Cristo mensah, 11/17/2025 09:30:00 AM, [address], [address], [place], [place], [phone], Progress Notes * Radha WARD ADOB: 7 (69 yo F)Acc No.[id number]:01/04/2025 Patient: Radha ACHARYA Provider: Makeda Jacobsen MD :1955 A ge:69 Y S ex:Female Date:01/04/2025 Address:[address] [facility], [id number] Subjective: * Chief Complaints: * C oughing fatigue ? fractured rib x 3 weeksVideo [phone] * HPI: S ymptom(s): Telehealth L ocation of provider rendering services: [address], [address], ocation of patient: a t address listed in demographics for today's visit, P atjackie identification confirmed using: RUSTY Quesada ame, T elehealth method: V ideo conference where patient is visible to the provider of care, C onsent: P atient verbally consented to treatment, Patient verbally consented to billing insurance company, Patient informed of any privacy concerns related to method of visit, T otal time spend talking with patient (minutes) 2 0. patient is a 69yo female video telehealth visit here with complaint of cough, fatigue for 3 weeks, complaining of rib pain/ 3 weeks ago bronchitis and not sleeping. waking up soaked.starting to feel better. and last 3 days feeling poorly and coughing again at night. wheezing. using inhaler. getting short of breath. * ROS: G eneral/Constitutional: Denies C hills. A dmits F atigue. D enies F ever. A dmits H eadache. E NT: Denies S ore throat. R espiratory: Admits C ough. A dmits S hortness of breath at rest. A dmits S hortness of breath with exertion. D enies S putum production. G astrointestinal: Denies D iarrhea. D enies N ausea. * Medical History: * Surgical History: * Hospitalization/Major Diagno stic Procedure: * Medications: T akingFlecainide Acetate 50 MG Tablet as directed Orally bid Vitamin D 50 MCG (2000 [place]) Tablet 1 tablet Orally Once a day Metoprolol Succinate ER 25 MG Tablet Extended [...] FOR 30 DAYS Orally Once a day ProAir HFA 108 (90 Base) MCG/ACT Aerosol Solution 2 puffs as needed Inhalation every 4 hrs Wixela Inhub 250-50 MCG/ACT Aerosol Powder Breath Activated INHALE 1 PUFF BY MOUTH TWICE DAILY Inhalation Twice a day Apixaban 5 MG Tablet as directed Orally BID Medication List reviewed and reconciled with the patientTaking Flecainide Acetate 50 MG Tablet as directed Orally bid Taking Vitamin D 50 MCG (2000 [place]) Tablet 1 tablet Orally Once a day Taking Metoprolol Succinate ER 25 MG Tablet [...] FOR 30 DAYS Orally Once a day Taking ProAir HFA 108 (90 Base) MCG/ACT Aerosol Solution 2 puffs as needed Inhalation every 4 hrs Taking Wixela Inhub 250-50 MCG/ACT Aerosol Powder Breath Activated INHALE 1 PUFF BY MOUTH TWICE DAILY Inhalation Twice a day Taking Apixaban 5 MG Tablet as directed Orally BID Medication List reviewed and reconciled with the patient * Allergies: N .K.D.A.yes[Allergies Verified] Objective: * Vitals: H t: 64. weight at home is 90 BP not taken no temp today. Assessment: * Assessment: 1. M oderate persistent asthmatic bronchitis with acute exacerbation - J45.41 (Primary) ? Plan: * Treatment: * Procedure Codes: * * Sign off status: Completed true * Provider: Makeda Jacobsen MD Date: Generated for Sushila brambila/Raghav/eTransmitting on: 1 09:22 AM EST History and Physical Notes * HPI (History of Present Illness) Category Sub-Category Detail Notes Category Not es Symptom(s) Telehealth Location of [facility]:: [address], [address] patient is a 69yo female video telehealth visit here with complaint of cough, fatigue for 3 weeks, complaining of rib pain/ 3 weeks ago bronchitis and not sleeping. waking up soaked.starting to feel better. and last 3 days feeling poorly and coughing again at night. wheezing. using inhaler. getting short of breath. Location of patient:: at address listed in demographics for today's visit Patient identification confirmed using:: Name, Telehealth method:: Video co nference where patient is visible to the provider of care Consent:: Patient verbally c onsented to treatment, Patient verbally consented to billing insurance company, Patient informed of any privacy concerns related to method of visit Total time spend talking with patient (m inutes): 20
--- OUTSIDE RECORDS SUMMARY | 2025-01-06 07:52 | XMS_ITS ---
Author Organization Cristo Jacobsen MD Address [address] [place] [phone] Care Team Providers Care Waxer Floor Name Role Phone Cristo Jacobsen Primary Care Provider REASON FOR VISIT repeat chest x-ray in 1 week from 01-04-25 Encounters Encounter Location Date Provider Diagnosis Cristo Jacobsen MD [address] [place] [address] [place] [phone] 01/06/2025 Cristo Jacobsen Moderate persistent asthmatic bronchitis with acute exacerbation J45.41 Assessments Encounter Date Diagnosis (ICD Code) Assessment Notes Treatment Notes Treatment Clinical Notes Section Notes 01/06/2025 Moderate persistent asthmatic bronchitis with acute exacerbation (ICD-10 - J45.41) Plan Of Treatment Pending Test Test Name Order Date XR CHEST 2 VIEW PA & LAT 01/06/2025 Next Appt Details Provider Name:Cristo mensah, 05/12/2025 07:45:00 AM, [address] [place] [address], [address], [phone], Provider Name:Critso mensah, 05/16/2025 09:00:00 AM, [address] [place] [address], [address], [phone], Provider Name:Cristo mensah, 11/10/2025 07:15:00 AM, [address] [place] [address], [address], [phone], Provider Name:Cristo mensah, 11/17/2025 09:30:00 AM, [address], [address], [place], [place], [phone], Progress Notes * Radha WARD ADOB: (69 yo F)Acc No.[id number]:01/06/2025 Patient: Radha ACHARYA :1955 A ge:69 Y S ex:Female Address:[address] [place] [address] [place] [address] Subjective: * Chief Complaints: * R epeat chest x-ray in 1 week from 01-04-25 * Medical History: * Surgical History: * Hospitalization/Major Diagno stic Procedure: * Medications: Objective: * Vitals: * Physical Examination: Assessment: * Assessment: 1. M oderate persistent asthmatic bronchitis with acute exacerbation - J45.41 Plan: * Treatment: * Procedure Codes: * true * Date: Generated for Sushila brambila/Raghav/Estelleitting on: 09:22 AM EST
--- NOTE | 2025-03-23 09:22 | MHC.OFFVIS ---
Vital Signs 03/23/25 09:23 Height 5 ft 4 in Weight 96 lb 1.945 oz BMI 16.5 BP 100/60 Blood Pressure Location Lt brachial Position Sitting Pulse 56 Pulse Source Monitor Intake Visit Reasons: 6 mth f/up w/ ekg Intake Note: 6mth f/up / ekg Spring Former Machine Required: No Accompanied by: Self / Same As Patient Allergies No Known Allergies Allergy (Verified 02/13/22 11:21) Medication List - Last Reconciled 03/23/25 by Tacho Valdes MD albuterol sulfate 90 mcg/actuation 0 mcg inhalation cholecalciferol (vitamin D3) 50 mcg PO DAILY Eliquis (apixaban) 5 mg PO BID NS flecainide 100 mg PO Q12H fluticasone propion-salmeterol 250-50 mcg/dose (Wixela Inhub) 1 puff inhalation BID levothyroxine 50 mcg PO QAM metoprolol succinate ER 25 mg PO DAILY rosuvastatin 10 mg PO DAILY HPI Comments Details: Radha comes for follow-up. Patient had recent 1 episode of atrial fibrillation without any obvious trigger on . The symptoms lasted for about 3 hours. She took extra flecainide and symptoms then reverted. She said she had 3 episodes in October. Again no clear triggers. She takes her medications religiously. She denies any new cardiac or systemic illness. Denies any exertional chest pain or shortness of breath. No orthopnea, PND, leg edema. No bleeding issues or neurologic events. [facility] Medical History Mitral regurgitation Paroxysmal atrial fibrillation Asthma Hyperlipidemia Hypothyroid Surgical History Hx of colonoscopy Family History Mother HTN (hypertension) Cervical cancer Hyperthyroidism Father Heart attack Brother History of quadruple bypass Sister Hyperthyroidism Acute rheumatoid arthritis Sister Hypothyroid Hypercholesteremia Social History Alcohol intake: never Patient Tobacco Use Status: Never used Tobacco Review of Systems Const Denies chills, Denies fatigue, Denies fever(s), Denies frequent falls, Denies weakness, Denies weight gain and Denies weight loss ENT Denies dizziness Card Denies chest pain, Denies leg edema, Denies lightheadedness, Denies palpitations, Denies dyspnea and Denies dyspnea on exertion Resp Denies cough, Denies dyspnea and Denies dyspnea on exertion GI Denies hematochezia Musc Denies abnormal gait, Denies muscle weakness, Denies numbness, Denies radiating pain into limb and Denies tingling Neuro Denies Abnormal speech present, Denies abnormal gait, Denies dizziness, Denies frequent falls, Denies numbness, Denies tingling and Denies weakness Endo Denies fatigue and Denies palpitations Physical Exam Vital Signs: Last Vital Signs Pulse 56 03/23/25 09:23 BP 100/60 03/23/25 09:23 BMI result Body Mass Index 16.5 Const General: cooperative, comfortable, no acute distress, alert, awake, Physically active and well groomed Nutritional Appearance: thin Orientation/consciousness: patient oriented x3 Limitations: no limitations HEENT Head: Yes normocephalic and Yes atraumatic Neck Neck: Yes trachea midline, Yes supple and Yes no JVD Resp Effort & Inspection: normal respiratory effort Auscultation: clear to auscultation bilaterally Cardio Jugular venous distension: no JVD Palpation: normal PMI Rate: regular rate Rhythm: regular rhythm Heart sounds: S1 normal heart sound present, S2 normal heart sound present, no click, no gallops, no murmurs and no rubs GI Auscultation: normal bowel sounds Skin General skin exam: no rashes or lesions noted Neuro General: patient oriented x3 and no focal motor deficits Speech: No Abnormal speech present Extrem General: Yes no clubbing, cyanosis or edema Psych Appearance: grossly normal Office Procedures EKG Details: EKGs shows sinus bradycardia at 56 beats per minute with normal axis and normal intervals [id number], Complete Assessment & Plan Assessment & Plan (1) Paroxysmal atrial fibrillation: Code(s): I48.0 - Paroxysmal atrial fibrillation Category: Medical Plan: Paroxysmal atrial fibrillation with few episodes with overall low burden. That has no clear apparent triggers. I have advised to continue trach flecainide if possible 12 hours apart. Additional flecainide as need be. Continue concomitant metoprolol therapy. We discussed other options including increasing flecainide dose and/or switching antiarrhythmic drug therapy which would be with similar efficacy. However if she has increasing burden I think she would most benefit from ablation and this was discussed with her. Near technology in his ablation were discussed with her. She showed understanding. Continue full oral anticoagulation, currently on Eliquis 5 mg b.i.d.. (2) Mitral regurgitation: Code(s): I34.0 - Nonrheumatic mitral (valve) insufficiency Category: Medical Plan: Mitral and tricuspid valve prolapse. Will follow with echocardiogram in 5 months time. Clinically does not appear to have any significant worsening. No interventions required. Will follow up in the clinic in 6 months time, sooner PRN. Thank you for allowing me to partake in his care. Orders: Orders CA echo transthoracic complete 5 Months I48.0 - Paroxysmal atrial fibrillation Coding Level of Care Code Est Pt Level 4 (76000) Diagnoses Paroxysmal atrial fibrillation I48.0 Mitral regurgitation I34.0 CPT Codes EKG - CPT: 25892-Eblrocanhonktwyhr, Complete ([id number])
--- OUTSIDE RECORDS SUMMARY | 2025-03-23 09:22 | XMS_ITS | Patient Health Record ---
Author Organization [facility] Address [address] [place] [address] Care Team Providers Care Hollow Handle Bench Worker Name Role Phone Cristo Jacobsen MD Primary Care Provider Saúl Garcia Jr [phone] Allergies Allergen (clinical drug ingredient) Drug/Non Drug [...] stop date) Never Smoker NA - NA Social History Drugs/Alcohol: Social Info Question Answer Notes Alcohol Screen Did you have a drink containing alcohol in the past year? No Points 0 Interpretation Negative Tobacco Use: Social Info Question Answer Notes Tobacco Use/Smoking Patient is a nonsmoker Additional Details Category Social Info Options Details Miscellaneous: Marital status: Occupation: works full-time Nurse Practitioner Problems Problem Type SNOMED Code ICD Code Onset Dates Problem Status W/U Status Risk Notes Problem Colon cancer screening (873172344) Colon cancer screening (Z12.11) Active confirmed Problem Pre-procedure evaluation check (965402091) Encounter for other preprocedural examination (Z01.818) Active confirmed Plan Of Treatment Future Test Test Name Order Date COLONOSCOPY 12/20/2019 Next Appt Details Provider Name:Saúljoe rae Jr, 04/27/2025 11:00:00 AM, [address] [place] [address], [address], [place], [address], Insurance Providers Payer Name Payer Address Payer Phone Subscriber Number Group Number Insured Name Patient Relationship to Insured Coverage Start Date Coverage End Date [facility] [address] [place], [place] [id number] ARIANNA WARD Self - patient is the insured Medical (General) History Medical History History ICD Code Hypothyroidism hyperlipidemia asthma Surgical History Surgery Date(Month/Year)
[2025-03-23 09:23] VITALS: BP 100/60; PULSE 56; BMI 16.5
--- OUTSIDE RECORDS SUMMARY | 2025-03-23 09:23 | XMS_ITS | Patient Health Record ---
Author Organization [facility] Address [address] [place] [address] Care Team Providers Care Platen Press Operator Apprentice Name Role Phone Ann-Marie MELO, Cristo Primary Care Provider Linn Adhikari [phone] Allergies Allergen (clinical drug ingredient) Drug/Non Drug [...] Status Risk Notes Problem Postmenopausal atrophic vaginitis (34240358) Postmenopausal atrophic vaginitis (N95.2) Active confirmed Vital Signs Temperature 97.5 degrees Fahrenheit 07/12/2024 Blood pressure diastolic 60 mm Hg 07/12/2024 Height 64 in 07/12/2024 Blood pressure systolic 100 mm Hg 07/12/2024 Weight 93 lbs 07/12/2024 BMI 15.96 kg/m2 07/12/2024 Encounters Encounter Location Date Provider Diagnosis [address] [place] [address] 07/12/2024 Linn Medina Encounter for gynecological examination [...] Name:Linn ocampo, 07/14/2025 08:40:00 AM, [address] [facility], [address], [place], [address], Insurance Providers Payer Name Payer Address Payer Phone Subscriber Number Group Number Insured Name Patient Relationship to Insured Coverage Start Date Coverage End Date MEDICARE [address] [facility] [place] [id number] ARIANNA WARD Self - patient is the insured BCBS OF [facility] [address] [place] [address] [phone] [id number] ACOSTA WARD Spouse - patient is the [...]
--- OUTSIDE RECORDS SUMMARY | 2025-03-23 09:23 | XMS_ITS | Patient Health Record ---
Author Organization Cristo Jacobsen MD Address [address] [place], [place] [id number] Care Team Providers Care Lightning Rod Installer Name Role Phone Cristo Jacobsen Primary Care Provider [phone] Allergies No Known Allergies Results Component Value Reference Range Notes Lipid Panel with Reflex Reviewed date:05/13/2024 12:41:29 PM Interpretation: Performing Lab:[facility], [address] [place] [phone] Notes/Report: Triglycerides 75 <150 mg/dL Desirable Triglyceride: [...] ff Reviewed date:11/05/2024 04:32:55 PM Interpretation: Performing Lab:[facility], [address] [place] [phone] Notes/Report: White Blood Count 7.9 4.8-10.8 X10*3/uL [...] NRBC Abs Auto 0.000 0.0-0.012 X10*3/uL Comprehensive Porter. Panel Fa st Reviewed date:11/05/2024 12:40:25 PM Interpretation: Performing Lab:[facility], [address] [place] [phone] Notes/Report: Sodium 138 135-145 mmol/L Potassium 3.9 [...] Panel Reviewed date:11/05/2024 12:41:10 PM Interpretation: Performing Lab:[facility], [address] [place] [phone] Notes/Report: Triglycerides 94 <150 mg/dL Desirable Triglyceride: [...] Total Reviewed date:11/05/2024 04:28:34 PM Interpretation: Performing Lab:[facility], [address] [place] [phone] Notes/Report: Vitamin D 25-OH Total 126.0 >30 [...] t Reviewed date:11/05/2024 04:33:19 PM Interpretation: Performing Lab:[facility], [address] [place] [phone] Notes/Report: Urine, Clean Catch Color Urine Yellow Appearance Urine Clear PH 6.0 5.0-9.0 Glucose Urine UA Negative Negative mg/dL Urine Blood Negative Negative Specific [place] - Urine 1.020 1.005-1.025 Urine Protein Negative Neg-Trace mg/dL Urine Ketones Negative Negative mg/dL Nitrite Urine Negative Negative Leukocyte Esterase Urine Negative Negative RBC Urine 0-2 0-2 /HPF WBC Urine 0-5 0-5 /HPF Squamous Epithelial Cell Urine 0-2 0-2 /HPF Bacteria Urine None Seen None Seen Hyaline Casts Urine 0-2 0-2 /LPF Hold Wayne Reviewed date:05/13/2024 12:40:41 PM Interpretation: Performing Lab:[facility], [address] [place] [phone] Notes/Report: Helena Black See Note Specimen held untested for 24 hours; Call to request Chemistry testing. Complete Blood Count no Diff Reviewed date:08/11/2024 03:55:35 PM Interpretation: Performing Lab:[facility], [address] [place] [phone] Notes/Report: White Blood Count 7.1 4.8-10.8 X10*3/uL [...] Panel Reviewed date:08/11/2024 03:58:27 PM Interpretation: Performing Lab:[facility], [address] [place] [phone] Notes/Report: Sodium 138 135-145 mmol/L Potassium 4.2 [...] Magnesium Reviewed date:08/12/2024 12:35:46 PM Interpretation: Performing Lab:[facility], [address] [place] [phone] Notes/Report: Magnesium 2.0 1.6-2.6 mg/dL TSH reflex Free T4 Reviewed date:08/11/2024 03:54:04 PM Interpretation: Performing Lab:[facility], [address] [place] [phone] Notes/Report: TSH reflex Free T4 2.97 0.32-4.0 uIU/mL Hold Gold Reviewed date:11/05/2024 12:40:00 PM Interpretation: Performing Lab:[facility], [address] [place] [phone] Notes/Report: Hold Gold See Note Specimen held untested for 24 hours; Call to request Chemistry testing. XR chest 2V Reviewed date:01/04/2025 05:01:37 PM Interpretation: Performing Lab: Notes/Report: [address] [place] [address] XRay Report Signed Patient: Radha Bay MR#: [id number] 92 : 1955 Acct:[id number] Age/Sex: 69 / F ADM Date: 01/04/25 Loc: HO.XRAY Attending Dr: Cristo Jacobsen MD Ordering Physician: Cristo Jacobsen MD Date of Service: 01/04/25 Procedure(s): XR chest 2V Accession Number(s): [id number] cc: Cristo Jacobsen MD Reason for Exam: [...] Michael Lyn MD 01/04/2025 03:08 PM EDT Dictated By: Michael Lyn MD Signed By: <Electronically signed by Michael Lyn MD in OV> 01/04/25 1508 DD/ 1451 TD/TT: 01/04/25 1453 Radio Repairer: [address] [address] XRay Report Signed Patient: Becky Bay MR#: [id number] 92 : 1955 Acct:[id number] Age/Sex: 69 / F ADM Date: 01/04/25 Loc: HO.XRAY Attending Dr: Cristo Jacobsen MD Ordering Physician: Cristo Jacobsen MD Date of Service: 01/04/25 Procedure(s): XR isabelle st 2V Accession Number(s): [id number] cc: Cristo Jacobsen MD Reason for Exam: ASTHMATIC BRONCHITIS EXAMINATION: XR CHES T 2 VIEWS HISTORY: ASTHMATIC BRONCHITIS COMPARISON: Comparis on is made with the prior examination dated 03/01/2022. FINDINGS: PA and lat eral views of the chest are submitted. The lungs are hyperinflated, consistent with COPD. There is biapical scarring. There is patchy airs pace opacity in the right middle lobe, consistent with pneumonia. Ther e is no pleural effusion, pneumothorax, or pulmonary vascular congestion. The heart is normal in size. The bones are intact. X R/XR chest 2V IMPRESSION: COPD. Right middle l obe pneumonia. Follow-up is recommended to document resolution. Electronically yandy d by: Michael Lyn MD 01/04/2025 03:08 PM EDT RP Dictated By: Michael Lyn MD Signed By: <Electronically signed by Michael Lyn MD in OV> 01/04/25 1508 DD/ 1451 TD/TT: 01/04/25 1453 Radio Repairer: XR chest 2V Reviewed date:01/21/2025 12:35:20 PM Interpretation:message sent Performing Lab: Notes/Report: [address] [address] XRay Report Signed Patient: Radha Bay MR#: [id number] [birth year] : 1955 Acct:[id number] Age/Sex: 69 / F ADM Date: 01/11/25 Loc: RANDI Attending Dr: Cristo Jacobsen MD Ordering Physician: Cristo Jacobsen MD Date of Service: 01/11/25 Procedure(s): XR chest 2V Accession Number(s): [id number] cc: Cristo Jacobsen MD Reason for Exam: MODERATE PERSISTENT ASTHMATIC BRONCHITIS W/ACUTE EXACERBATION EXAMINATION: XR CHEST CLINICAL INFORMATION: MODERATE PERSISTENT ASTHMATIC BRONCHITIS W/ACUTE EXACERBATION COMPARISON: January 04, 2025 TECHNIQUE: PA and lateral views. FINDINGS: Hyperinflated lungs. Pulmonary reticular pattern. Apical lung scarring. No consolidation, pleural effusion or pneumothorax. Cardiomediastinal silhouette size is normal. Calcified plaque aortic arch. S-shaped curvature of the thoracolumbar spine. Multilevel thoracic spondylosis, mild. Osteopenia versus osteoporosis. XR/XR chest 2V IMPRESSION: COPD emphysematous type changes without acute airspace disease. Electronically signed by: Dayton Encinas MD 01/11/2025 08:20 AM EDT RP Dictated By: Dayton Flores MD Signed By: <Electronically signed by Dayton Pastor MD in OV> 01/11/25 0820 DD/ TD/TT: 01/11/25 0816 Radio Repairer: [place] [address] XRay Report Signed Patient: Becky Bay MR#: [id number] 92 : 1955 Acct:[id number] Age/Sex: 69 / F ADM Date: 01/11/25 Loc: HO.BEREAY Attending Dr: Cristo Jacobsen MD Ordering Physician: Cristo Jacobsen MD Date of Service: 01/11/25 Procedure(s): XR isabelle st 2V Accession Number(s): [id number] cc: Cristo Jacobsen MD Reason for Exam: MODERATE PERSISTENT ASTHMATIC BRONCHITIS W/ACUTE EXACERBATION EXAMINATION: XR CHEST CLINICAL INFORMATION: MODERATE PERSISTENT ASTHMATIC BRONCHITIS W/ACUTE EXACERBATION COMPARISON: January 04, 2025 TECHNIQUE: PA and lateral views. FINDINGS: Hyperinflated lungs. Pulmonary reticular pattern. Apical lung scarring. No consolidation, pleural effusion or pneumothorax. Cardiomediastinal silhouette size is normal. Calcified plaque aortic arch. S-shaped curva ture of the thoracolumbar spine. Multilevel thoracic spondylosis , mild. Osteopenia versus osteoporosis. X R/XR chest 2V IMPRESSION: COPD emphysematous t ype changes without acute airspace disease. Electronically yandy d by: Dayton Encinas MD 01/11/2025 08:20 AM EDT RP Dictated By: Dayton Robles MD Signed By: <Electronically signed by Dayton Pastor MD in OV> 01/11/25 0820 DD/ TD/TT: 01/11/25 0816 Radio Repairer: Reason For Referral No Information Medications Medication [...] Orally bid Active Vitamin D 50 MCG (2000 UT) [...] 10/05/2012 Administered Fluarix Quadrivalent Unknown 12/06/2019 Administered [facility] Covid Vaccine Unknown 03/09/2020 Administered [facility] Covid Vaccine Unknown 03/30/2020 Administered [facility] Prevnar 13 IM Intramuscular 05/19/2020 Administered SARS-COV-2 [...] W/U Status Risk Notes Problem Pure hypercholesterolemia (652544039) Pure hypercholesterolemia (E78.0) Active confirmed Problem Atrial fibrillation (23092721) Atrial fibrillation (I48.91) Active confirmed Problem 93083834 Lymphocytosis (D72.820) Active confirmed Problem 15383052 Vitamin D defici ency (E55.9) Active confirmed Problem 871866098 Acquired hypothyroidism (E03.9) Active confirmed Problem 527389392 Mild intermitten t asthma without complication (J45.20) Active confirmed Problem Irregular heart beat (604436437) Irregular heart beat (I49.9) Active confirmed Problem 56021649 Hypercholesterol emia (E78.00) Active confirmed Problem 25555462 Hyperlipidemia, unspecified hyperlipidemia type (E78.5) Active confirmed Problem 086207798 Osteopenia of sp ine (M85.88) Active confirmed Problem Mitral valve disorde r (29190282) Moderate mitral regurgitation (I34.0) Active confirmed Problem 769819705512651 Moderate persist ent asthmatic bronchitis with acute exacerbation (J45.41) Active confirmed Vital Signs Blood pressure diastolic 56 mm Hg 11/12/2024 john ght is down 1 poiund since 05-21-24 Height 64 in 01/04/2025 weight at home is 90 BP not taken no temp today Blood pressure systolic 84 mm Hg 11/12/2024 weig ht is down 1 poiund since 05-21-24 Weight 93 lbs 11/12/2024 weight is down 1 poiund since 05-21-24 BMI 15.96 kg/m2 11/12/2024 weight is down 1 poiund since 05-21-24 Encounters Encounter Location Date Provider Diagnosis Cristo Jacobsen MD [address] [place] [address] Drive [address] [place] [id number] 05/13/2024 Cristo Jacobsen Hypercholesterolemia E78.00 Cristo Jacobsen MD [address] [place] [address] [id number] 11/05/2024 Cristo Jacobsen Acquired hypothyroid ism E03.9 ; Vitamin D deficiency E55.9 ; Hypercholesterolemia E78.00 and Lymphocytosis D72.820 Cristo Jacobsen MD [address] [place] [address] [id number] 05/21/2024 Cristo Jacobsen Hypercholesterolemia E78.00 ; Hyperlipidemia, unspecified hyperlipidemia type E78.5 ; Mild intermittent asthma without complication J45.20 and De Quervain's disease (tenosynovitis) M65.4 Cristo Jacobsen MD [address] [facility] [address] [facility] [address] [place] [address] [id number] 11/12/2024 Cristo Jacobsen Mild intermittent as thma without complication J45.20 ; Atrial fibrillation I48.91 ; De Quervain's disease (radial styloid tenosynovitis) M65.4 and Acquired hypothyroidism E03.9 Cristo Jacobsen MD [address] [place] [address] [id number] 01/04/2025 Cristo Jacobsen Moderate persistent asthmatic bronchitis with acute exacerbation J45.41 Cristo Jacobsen MD [address] [place] [address] [id number] 04/19/2024 Cristo Jacobsen Acquired hypothyroid ism E03.9 Cristo Jacobsen MD [address] [place] [address] [address] [place] [address] [id number] 01/06/2025 Cristo Jacobsen Moderate persistent asthmatic bronchitis with acute exacerbation J45.41 Assessments Encounter Date Diagnosis (ICD Code) Assessment Notes Treatment Notes Treatment Clinical Notes Section Notes 05/13/2024 Hypercholesterolemia (ICD-10 - E78.00) 11/05/2024 Acquired hypothyroid ism (ICD-10 - E03.9) 05/21/2024 Hypercholesterolemia (ICD-10 - E78.00) had run [...] for use, chest x-ray order faxed to [facility] [place] 04/19/2024 Acquired hypothyroid ism (ICD-10 - E03.9) [...] if it gets worse will send to [facility] 11/12/2024 Acquired hypothyroid ism (ICD-10 [...] 07/20/2021 Next Appt Details Provider Name:Cristo mensah, 05/12/2025 07:45:00 AM, [address] [place] [address] Drive, [address], [place], [place], [phone], Provider Name:Cristo mensah, 05/16/2025 09:00:00 AM, [address], [address], [place], [place], [phone], Provider Name:Cristo mensah, 11/10/2025 07:15:00 AM, [address], [address], [place], [place], [phone], Provider Name:Cristo Diaz rodrick, 11/17/2025 09:30:00 AM, [address], [address], [place], [place], [phone], Insurance Providers Payer Name Payer Address Payer Phone Subscriber Number Group Number Insured Name Patient Relationship to Insured Coverage Start Date Coverage End Date MEDICARE [employer] [address] [place] [address] [id number] Radha Bay Self - patient is the insured [employer] [facility] [address] [place], [place] [id number] Abdiel Bay Spouse - patient is the spouse of the insured Medical (General) History Medical History History ICD Code colonoscopy 2008 incomplete won't go for colonoscopy; colonoscopy done 01/19/[address] Kirby - repeat pending biopsy had cholesterol plaque CHADS score 2
== END 2025-03-23 09:40 | disposition home or self-care (01) ==
LOC: HO.HCS 09:11
PROVIDERS: Visit Provider Internal Medicine Cardiovascular Disease
DX: I48.0 Paroxysmal atrial fibrillation (principal); I34.0 Nonrheumatic mitral (valve) insufficiency
CPT/HCPCS: 93010; 99214

== ENCOUNTER → 2025-03-23 09:10 | Outpatient (BNVA) | payer MEDICARE, BC, SELFPAY | PROVIDERS: Visit Provider Internal Medicine Cardiovascular Disease | DX: I48.0 Paroxysmal atrial fibrillation (principal); Z79.01 Long term (current) use of anticoagulants; I34.0 Nonrheumatic mitral (valve) insufficiency; I34.1 Nonrheumatic mitral (valve) prolapse | CPT/HCPCS: 93005; 99212 ==